=== PATIENT | male | born 1950 | race Caucasian/White ===

== ENCOUNTER 2020-01-08 01:55 | Emergency (ER) | payer MEDICARE, SELFPAY ==
[2020-01-08 01:00] VITALS: BP 145/125; PULSE 83; RESP 16; TEMP 36.6; O2SAT 97; BMI 26.8
--- NOTE | 2020-01-08 01:14 | ECG_ITS ---
Test Reason : PALPITATIONS Blood Pressure : / mmHG Vent. Rate : 082 BPM Atrial Rate : 082 BPM P-R Int : 166 ms QRS Dur : 094 ms QT Int : 376 ms P-R-T Axes : 035 015 031 degrees QTc Int : 439 ms Sinus rhythm with Premature atrial complexes Otherwise normal ECG When compared with ECG of 20-MAR-2016 16:59, Premature atrial complexes are now Present Referred By: Mary Aguiar Electronically Signed By:SEVERIANO SAEED MD
--- NOTE | 2020-01-08 01:28 | ED_ITS ---
HPI - Arrhythmia/Palpitations General Chief Complaint: Arrhythmia/Palpitations Stated Complaint: tachy Time Seen by Provider: 01/08/20 01:13 EST Source: patient Mode of arrival: EMS Limitations: no limitations History of Present Illness HPI narrative: This is a 69-year-old male who presents with 3-4 days of intermit tent palpitations that are not associated with alcohol use, infection, and are not associated with a specific time of day or activity. In addition, patient denies any associated diaphoresis, nausea, chest pain, recent travel. Currently, patient denies any symptoms. Related Data Allergies Allergy/AdvReac Type Severity Reaction Status Date / Time No Known Allergies Allergy Unverified 11/24/19 15:00 [No Known Allergies*] acetaminophen [Percocet] AdvReac Unknown nausea and Verified 08/19/19 00:00 vomiting oxycodone [Percocet] AdvReac Unknown nausea and Verified 08/19/19 00:00 vomiting bactrim Allergy Unknown nausea and Uncoded 08/19/19 00:00 vomiting Review of Systems Review of Systems: Pertinent positives and negatives as stated in HPI 10 point review systems is otherwise negative. PMFSH Past Medical History Source: nursing notes reviewed Medical History (Reviewed 01/08/20 @ 01:30 EST by Mary Aguiar MD) HTN (hypertension) Hyperlipemia Social History Social History (Reviewed 01/08/20 @ 01:30 EST by Mary Aguiar MD) Smoking Status: Never smoker Use of substances other than those prescribed or required for medical reasons: No Advance Directives: No Advance Directives Information Provided: Yes Physical Exam Vital Signs: Vital Signs: Vital Signs Temp Pulse Resp BP Pulse Ox 01/08/20 01:00 ES T 97.9 F 83 16 145/125 H 97 Body Mass Index 26.8 VITAL SIGNS: Reviewed. GENERAL: Well developed, well nourished, in no acute distress. HEAD: Normocephalic/atraumatic, EYES: PERRLA, EOMI intact without pain, no nystagmus/pallor/icterus noted EARS: Ext canals without abnormality, TMs non-bulging and non-erythematous NOSE: Nares patent bilateral OROPHARYNX: no oral lesions noted, posterior pharynx clear and non-erythematous without noted tonsillar enlargement/erythema/exudates NECK: Supple, no adenopathy LUNGS: Normal breath sounds. No adventitious sounds or accessory muscle use. SpO2<97> CARDIOVASCULAR: Regular rate and rhythm without noted murmurs, no JVD or lower extremity edema. ABDOMEN: Soft, non-tender, non-distended with bowel sounds. No rigidity. No guarding. No palpable masses or hernias noted MUSCULOSKELETAL: No tenderness, deformities, or effusions noted on gross inspection. EXTREMITIES: No cyanosis, clubbing or edema. SKIN: Inspection of the skin reveals no rashes, ulcerations, jaundice, pallor, or petechiae. NEUROLOGIC: Alert and oriented x 4. Strength and sensation to light touch were grossly intact x 4. Course Course Course Narrative: This is a 69-year-old male with history and clinical presentation most consistent with benign palpitations that on review of EKG appear to be associated with premature complexes. Patient will be evaluated for any infection, anemia, electrolyte abnormalities. On review of all investigations there is no evidence of infection, anemia, or electrolyte abnormalities. In addition, there were no acute changes on EKG when compared to prior from 03/20/2016. Patient was informed of all results and findings and discharged in stable condition and recommended to follow-up with his primary care provider for further discussion regarding possible Cardiology referral. MDM - Arrhythmia/Palpitations Lab Data Result diagrams: 01/08/20 01:27 EST 01/08/20 01:27 EST Labs: Lab Results 01/08/20 01/08/20 01/08/20 Range/Units 01:27 EST 01:27 EST 01:31 EST WBC 7.3 (4.8-10.8) X10*3/uL RBC 5.10 (4.60-5.80) X10*6/uL Hgb 15.5 (14.0-18.0) g/dl Hct 46.4 (42-52) % MCV 91.0 (80-98) fL MCH 30.4 (27.0-33.0) pg MCHC 33.4 (31.0-36.0) g/dl RDW 13.7 (11.0-16.0) % Plt Count 312 (160-400) X10*3/uL MPV 10.2 (9.4-12.4) fL Immature Gran % (Auto) 0.4 (0.0-0.4) % Neut % (Auto) 67.7 (45-73) % Lymph % (Auto) 21.6 (20-40) % [place] % (Auto) 8.7 (2-11) % Eos % (Auto) 1.0 (0-4) % Baso % (Auto) 0.6 (0-2) % Lymph # (Auto) 1.6 (1.2-4.9) X10*3/uL [place] # (Auto) 0.6 (0.1-1.2) X10*3/uL Eos # (Auto) 0.1 (0.0-0.4) X10*3/uL Baso # (Auto) 0.0 (0.0-0.2) X10*3/uL Abs Immat Gran (auto) 0.03 (0.00-0.03) X10*3/uL Absolute Neuts (auto) 4.9 (2.0-8.3) X10*3/uL Absolute Nucleated RBC 0.000 (0.0-0.012) X10*3/uL Nucleated RBC % (auto) 0.0 (0.0-0.2) /100WBC Sodium 140 (135-145) mmol/L Potassium 3.9 (3.3-5.1) mmol/l Chloride 103 (96-108) mmol/L Carbon Dioxide 24 (22-29) mmol/L Anion Gap 17 (12-20) BUN 25 H (9-16) mg/dL Creatinine 1.09 (0.5-1.4) mg/dL Estim Creat Clear Calc 61.4 Estimated GFR > 60 Random Glucose 106 (60-115) mg/dL Calcium 9.2 (8.4-10.2) mg/dL Total Bilirubin 0.6 (0.0-1.0) mg/dL AST 22 (5-37) U/L ALT 22 (0-40) U/L Alkaline Phosphatase 69 (39-117) U/L Troponin I High Sens 4.0 (<3.5-35.0) ng/L Total Protein 7.0 (6.5-8.0) g/dL Albumin 4.4 (3.5-5.0) g/dL ECG Data Attestation: I personally reviewed and interpreted this ECG as follows: Prior ECG tracings: available for review ( 03/20/2016 there are no acute changes) Interpretation: normal sinus rhythm, HR -82, no evidence of acute ischemia, [place]/QRS/ QTC are within normal limits. Discharge Plan Discharge Clinical Impression: Palpitations Patient Disposition: Home, Self-Care Instructions: Heart Palpitations (ED) Additional Instructions: The patient and/or family acknowledge understanding of results (as applicable), diagnosis, treatment plan, need for follow up, and symptoms that should prompt a return to the emergency room. Referrals: Mark Orozco MD [Primary Care Provider] - 2 days ( heart palpitations)
[2020-01-08 01:40] LABS: Basophils Percent Auto 0.6 % (0-2); Eosinophils Absolute Auto 0.1 X10*3/uL (0.0-0.4); Hematocrit 46.4 % (42-52); Hemoglobin 15.5 g/dl (14.0-18.0); Imm Gran Abs Auto 0.03 X10*3/uL (0.00-0.03); Imm Gran Pct Auto 0.4 % (0.0-0.4); Lymphocytes Absolute Auto 1.6 X10*3/uL (1.2-4.9); Lymphocytes Percent Auto 21.6 % (20-40); MANUAL DIFF FLAG NO; Mean Corpuscular HGB Conc 33.4 g/dl (31.0-36.0); Mean Corpuscular Hemoglobin 30.4 pg (27.0-33.0); Mean Platelet Volume 10.2 fL (9.4-12.4); Monocytes Absolute Auto 0.6 X10*3/uL (0.1-1.2); Monocytes Percent Auto 8.7 % (2-11); Neutrophils Absolute Auto 4.9 X10*3/uL (2.0-8.3); Neutrophils Percent Auto 67.7 % (45-73); Platelet Count 312 X10*3/uL (160-400); Red Cell Distribution Width 13.7 % (11.0-16.0); White Blood Count 7.3 X10*3/uL (4.8-10.8)
[2020-01-08 02:08] LABS: Alanine Aminotransferase 22 U/L (0-40); Albumin Level 4.4 g/dL (3.5-5.0); Alkaline Phosphatase 69 U/L (39-117); Anion Gap 17 (12-20); Aspartate Amino Transferase 22 U/L (5-37); Bilirubin Total 0.6 mg/dL (0.0-1.0); Blood Urea Nitrogen 25 mg/dL (9-16); Calcium 9.2 mg/dL (8.4-10.2); Carbon Dioxide 24 mmol/L (22-29); Chloride 103 mmol/L (96-108); Creatinine Clr Calc Pharmacy 61.4; Estimated Glomerular Filt Rate > 60; Glucose Random 106 mg/dL (60-115); Potassium 3.9 mmol/l (3.3-5.1); Sodium 140 mmol/L (135-145)
[2020-01-08 02:33] VITALS: BP 130/78
== END 2020-01-08 02:33 | disposition home or self-care (01) ==
PROVIDERS: Emergency Provider Student in an Organized Health Care Education/Training Program; PCP Internal Medicine
DX: R00.2 Palpitations (principal); I10 Essential (primary) hypertension; Z79.899 Other long term (current) drug therapy
CPT/HCPCS: 36415; 80053; 84484; 85025; 93005; 99283; 99285

== ENCOUNTER 2020-01-23 13:45 | Outpatient (REF) | payer MEDICARE, SELFPAY | END 2020-01-23 13:46 | disposition home or self-care (01) | LOC: HO.HMGCLDS 13:45 | PROVIDERS: PCP Internal Medicine; Visit Provider Internal Medicine | DX: Z20.828 Contact with and (suspected) exposure to other viral communicable diseases (principal) | CPT/HCPCS: C9803; U0003 ==

== ENCOUNTER → 2020-01-24 13:32 | Outpatient (REF) | payer MEDICARE, SELFPAY ==
--- NOTE | 2020-01-24 13:40 | ECG_ITS ---
Hook-up date: 2020-01-24 13:45:00 Duration: 25:02:00 Test Indications: PALPITATIONS, ESSEN. HTN Medications: 10199 QRS complexes 20 Ventricular ectopics which represent <1 % of total QRS comp. 405 Supraventricular ectopics which represent <1 % of total QRS comp. * Paced QRS complexs which represent % of total QRS comp. VENTRICULAR ECTOPY 20 Isolated 0 Bigeminal Cycles 0 Couplets 0 Runs 0 Beats in Runs * Beats LONGEST at * BPM at :: -- * Beats FASTEST at * BPM at :: -- SUPRAVENTRICULAR ECTOPY 399 Isolated 3 Couplets 0 Runs 0 Beats in Runs * Beats LONGEST at * BPM at :: -- * Beats FASTEST at * BPM at :: -- HEART RATES 42 MIN at 04:17:01 2020-01-25 68 AVG 122 MAX at 15:35:00 2020-01-24 LONGEST RR 1.6000 secs at 00:56:47 2020-01-25 S-T LEVELS Channel 1 - 128 mm at 13:45:00 2020-01-24 - 128 mm at 13:45:00 2020-01-24 Channel 2 - 128 mm at 13:45:00 2020-01-24 - 128 mm at 13:45:00 2020-01-24 Channel 3 - 128 mm at 03:30:41 -- - 128 mm at 03:30:41 Basic rhythm Normal sinus rhythm Frequent Sinus bradycardia , 31% of time HR < 60 bpm No long pauses Occasional Premature atrial complexes No sustained arrhythmias Patient did not report any symptoms in the diary Referred By: Mark Orozco Overread By: MARIAMA JIMENEZ MD
== END ==
LOC: HO.CARD 13:32
PROVIDERS: PCP Internal Medicine; Visit Provider Internal Medicine
DX: R00.2 Palpitations (principal); I10 Essential (primary) hypertension
CPT/HCPCS: 93226

== ENCOUNTER → 2020-06-13 08:49 | Outpatient (BNVA) | payer MEDICARE, SELFPAY | PROVIDERS: PCP Internal Medicine; Visit Provider Surgery | DX: K40.90 Unilateral inguinal hernia, without obstruction or gangrene, not specified as recurrent (principal) | CPT/HCPCS: 99212 ==

== ENCOUNTER 2021-02-19 09:29 | Emergency (ER) | payer MEDICARE, SELFPAY ==
--- NOTE | ~2021-02-19 | XR_ITS ---
EXAMINATION: SR ANKLE, RIGHT XR FOOT, RIGHT CLINICAL INFORMATION: Pain ankle and foot. COMPARISON: None TECHNIQUE: 2 views right ankle, 2 views right foot, and a lateral view of the combined ankle and foot are obtained for a total of 5 views. FINDINGS: There is no visible acute healing fracture or dislocation. The malleoli are intact and the ankle mortise is symmetric. There is bulky plantar calcaneal spur. There is hindfoot valgus with long axis talus projecting medial to first metatarsal on AP view and plantar flexed on the lateral view. The subtalar joint is not clearly visualized on any of the projections which may suggest subtalar coalition. There is increased plantar arch/flat foot. The midfoot and forefoot show no fracture or dislocation or destructive process. There is an elongated medial tarsal navicular, type III cornuate morphology. XR/XR ankle RT 2V IMPRESSION: 1. No fracture, dislocation, destructive process. 2. Foot deformity with heal valgus and decreased plantar arch. 3. Subtalar joint not clearly visible. Possibility of subtalar coalition raised. 4. Plantar calcaneal spur.
--- NOTE | ~2021-02-19 | XR_ITS ---
EXAMINATION: SR ANKLE, RIGHT XR FOOT, RIGHT CLINICAL INFORMATION: Pain ankle and foot. COMPARISON: None TECHNIQUE: 2 views right ankle, 2 views right foot, and a lateral view of the combined ankle and foot are obtained for a total of 5 views. FINDINGS: There is no visible acute healing fracture or dislocation. The malleoli are intact and the ankle mortise is symmetric. There is bulky plantar calcaneal spur. There is hindfoot valgus with long axis talus projecting medial to first metatarsal on AP view and plantar flexed on the lateral view. The subtalar joint is not clearly visualized on any of the projections which may suggest subtalar coalition. There is increased plantar arch/flat foot. The midfoot and forefoot show no fracture or dislocation or destructive process. There is an elongated medial tarsal navicular, type III cornuate morphology. XR/XR foot RT 2V IMPRESSION: 1. No fracture, dislocation, destructive process. 2. Foot deformity with heal valgus and decreased plantar arch. 3. Subtalar joint not clearly visible. Possibility of subtalar coalition raised. 4. Plantar calcaneal spur.
[2021-02-19 10:12] VITALS: BP 130/89; PULSE 96; RESP 18; TEMP 36.8; O2SAT 98; BMI 23.6
--- NOTE | 2021-02-19 10:31 | ED_ITS ---
HPI - Extremity Injury (Lower) General Chief Complaint: Extremity Injury, Lower Stated Complaint: R ankle pain Time Seen by Provider: 02/19/21 11:41 Source: patient Mode of arrival: ambulatory Limitations: no limitations History of Present Illness HPI Narrative: Patient presents to ED for right foot pain for the past 4 days. Patient states he was doing work on his shower and when he got off the folding chair he put his foot on the ground and his foot slipped and hit a wooden post and since then has had pain. Patient denies falling to the ground or hitting head. Patient denies any popping or cracking sound in foot. Patient denies any bluish black discoloration, erythema, hotness, or coldness. Patient denies any fever, chills, calf pain, leg swelling, or any wounds and foot. Related Data Previous Rx's Medication Instructions Recorded naproxen 500 mg tablet 500 mg PO BID PRN 10 Days #20 tab 02/19/21 prednisone 20 mg tablet 60 mg PO DAILY 5 Days #15 tab 02/19/21 Allergies Allergy/AdvReac Type Severity Reaction Status Date / Time No Known Allergies Allergy Unverified 06/13/20 09:00 [No Known Allergies*] Review of Systems Review of Systems: Yes all other systems are reviewed and are negative Constitutional: Constitutional: Reports as per HPI and Reports no additional constitutional complaints Eyes: Eyes: Reports as per HPI and Reports no additional eye complaints ENT: Reports system reviewed and no additional complaints, except as documented and Reports as per HPI Cardiovascular: Cardiovascular: Reports as per HPI and Reports no additional cardiovascular complaints Respiratory: Respiratory: Reports as per HPI and Reports no additional respiratory complaints Gastrointestinal: Gastrointestinal: Reports as per HPI and Reports no additional gastrointestinal complaints Genitourinary: Genitourinary: Reports no additional male genitourinary complaints and Reports as per HPI Musculoskeletal: Musculoskeletal: Reports no additional musculoskeletal complaints, Reports as per HPI and Reports arthralgias (Right foot) Neurologic: Reports system reviewed and no additional complaints, except as documented and Reports as per HPI Psychiatric: Psychiatric: Reports no additional psychiatric complaints and Reports as per HPI [facility] Past Medical History Medical History (Updated 02/19/21 @ 11:30 by NASIMA Mcguire) HTN (hypertension) Hyperlipemia Surgical History (Updated 06/13/20 @ 09:27 by Caroline Ruben, RMA) History of arthroplasty of left knee History of arthroplasty of right knee (06/29/16) History of left inguinal hernia repair (09/01/19) 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) History of total right knee replacement (TKR) History of umbilical hernia repair (09/01/19) Family History Family History (Updated 06/13/20 @ 09:28 by JENAE Balderas) Maternal Grandmother Rectal cancer Social History Social History Alcohol intake: never Advance Directives: Yes Advance Directives Information Provided: No Advance Directives on File: No Physical Exam Vital Signs: Vital Signs: Last Vital Signs Temp 98.2 F 02/19/21 10:12 Pulse 96 02/19/21 10:12 Resp 18 02/19/21 10:12 BP 130/89 02/19/21 10:12 Pulse Ox 98 02/19/21 10:12 BMI result Body Mass Index 23.6 Const: General: cooperative, healthy appearing, comfortable, no acute distress, well developed, alert, awake and Physically active Orie ntation/consciousness: patient oriented x3 HENMT: Head: Yes normal to inspection, Yes No palpable skull fracture present, Yes normocephalic, Yes atraumatic and No abrasion Eyes: General: appearance normal, both eyes and all related structures Neck: Neck: Yes normal visual inspection, Yes full ROM, Yes no lymphadenopathy, Yes no meningeal signs, Yes trachea midline, Yes supple, No anterior neck swelling and No tender Chest: Chest palpation & inspection: normal inspection of the chest and normal palpation of entire chest wall Resp: Effort & Inspection: normal respiratory effort and able to speak in complete sentences Auscultation: clear to auscultation bilaterally Cardio: Jugular venous distension: no JVD Heart sounds: S1 normal heart sound present and S2 normal heart sound present GI: Inspection: Yes normal to inspection and No abdominal wall ecchymosis Palpation (GI): Soft to palpation, not firm, nontender, no guarding and not rigid : General: No CVA tenderness and Yes no CVA tenderness Back/Spine/Pelvis: Back: no CVA tenderness, No CVA tenderness and No back tenderness Skin: General skin exam: no rashes or lesions noted and elasticity normal Neuro: General: patient oriented x3, gait normal, no meningeal signs and CN's II-XI intact bilaterally Cranial nerves: Yes CN's II-XII intact bilaterally Extrem: General: Yes normal to inspection and Yes full ROM Ankle/foot/toe images: 1. Positive for tenderness on palpation. Negative for any ecchymosis, crepitus, or deformity. Negative for erythema, pus discharge, foul odor, or open wounds on foot. Motor/neuro/vascular exam. Achilles tendon intact. Psych: Appearance: grossly normal, well kempt and not disheveled Course Course Course Narrative: Patient sent for x-ray waiting for results. Patient presently does not want any pain meds Reevaluation(s) Reevaluation #1: Images negative for any fracture. Diagnosis foot sprain. Patient will be discharged with NSAIDs for Time: 11:29 MDM - Extremity Injury (Lower) MDM Narrative Medical decision making narrative: Foot sprain Discharge Plan Discharge Clinical Impression: Foot sprain Patient Disposition: Home, Self-Care Instructions: Foot Sprain (ED), Cold Compress or Soak (ED) Additional Instructions: The x-ray came back negative for any fracture or dislocation. You will be discharged with pain medication. Recommend rest and elevation and ice. Return to ED for any swelling, redness, bluish black discoloration, red streaks, foul odor, pus discharge, open wounds, calf pain, leg swelling, chest pain, shortness of breath, fever, chills, clonus of lower extremity, hotness, or any other concerning symptoms. Please follow-up with primary care provider Prescriptions: New naproxen 500 mg tablet 500 mg PO BID PRN (Reason: pain) 10 Days Qty: 20 RF: 0 prednisone 20 mg tablet 60 mg PO DAILY 5 Days Qty: 15 RF: 0 Stand Alone Forms: Work/School Release Interventions: ED Discharge Assessment Last Done: 02/19/21 11:49 Discharge Date/Time: 02/19/21 11:50 Print Language: Estonian
== END 2021-02-19 11:50 | disposition home or self-care (01) ==
PROVIDERS: Emergency Provider Emergency Medicine; PCP Internal Medicine
DX: S93.601A Unspecified sprain of right foot, initial encounter (principal); W22.09XA Striking against other stationary object, initial encounter; Y93.89 Activity, other specified; Y92.012 Bathroom of single-family (private) house as the place of occurrence of the external cause; Y99.9 Unspecified external cause status
CPT/HCPCS: 73600; 73620; 99283

== ENCOUNTER 2022-01-27 12:45 | Day surgery (SDC) | payer MEDICARE, SELFPAY ==
[2022-01-27 13:07] VITALS: BMI 22.6
[2022-01-27 13:11] VITALS: BP 164/107; PULSE 78; RESP 18; TEMP 36.4; O2SAT 99; BMI 22.6
--- NOTE | 2022-01-27 13:14 | HO.ANESPROP2 ---
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) History of total right knee replacement (TKR) History of umbilical hernia repair (09/01/19) History of Problems with Anesthesia: No Social History Social History Alcohol intake: never Patient Tobacco Use Status: Never used Tobacco Use of substances other than those prescribed or required for medical reasons: No Are you DNR?: No Advance Directives: No Advance Directives Information Provided: Yes Meds Allergies Allergy/AdvReac Type Severity Reaction Status Date / Time acetaminophen [From Percocet] AdvReac Stomach Verified 01/27/22 13:03 Upset oxycodone [From Percocet] AdvReac Stomach Verified 01/27/22 13:03 Upset Home Medications Medication Instructions Recorded Confirmed Last Taken Type atorvastatin 20 mg tablet 1 tab PO DAILY 01/24/22 01/24/22 Unknown History hydrochlorothiazide 12.5 mg tablet 1 tab PO DAILY 01/24/22 01/24/22 Unknown History lisinopril 30 mg tablet 1 tab PO DAILY 01/24/22 01/24/22 Unknown History omeprazole 20 mg capsule,delayed 1 cap PO BID 01/24/22 01/24/22 Unknown History release Exam Exam Date and Time: January 27, 2022 1314 Height,Weight and Vital Signs: Height 5 ft 9 in Weight 69.4 kg Last Vital Signs Temp 97.5 F 01/27/22 13:11 Pulse 78 01/27/22 13:11 Resp 18 01/27/22 13:11 BP 164/107 H 01/27/22 13:11 Pulse Ox 99 01/27/22 13:11 O2 Del Method 01/27/22 13:11 Airway Mallampati Class: II TM Dist: >3cm Neck ROM: Full Assessment and Plan Assessment Anesthesia Assessment: Anesthesia Plan Discussed and Chart Reviewed Final Anesthetic Review Family History of Problems with Anesthesia: No History of Problems with Anesthesia: No NPO: Yes ASA Class: II Final Preanesthetic Review: No Changes in Pt Med Stat, Meds/Allgs Chart Reviewed, Consent Obtained/Reviewed and Anes Risks/Benef Reviewed Patient Risk: Low Procedure Risk: Low Anesthetic Plan Anesthetic Plan: MAC: Disposition: Standard PACU
[2022-01-27] MEDS: Lactated Ringers 1,000 ML 50 ML IVCONT (13:36)
[2022-01-27 14:07] VITALS: BP 112/68; PULSE 83; RESP 16; TEMP 36.7; O2SAT 95
--- NOTE | 2022-01-27 14:14 | PM.OP ---
Brief Operative Note Date of Service: 01/27/22 Pre-op diagnosis: GERD, abdominal pain Post-op diagnosis: other (Hiatal hernia) Procedure: EGD with biopsies Surgeon: Tesfaye Helton Anesthesia: MAC Was an Nutrition Services Assistant used for this Procedure?: No Estimated blood loss (mL): 2.0 Pathology: other (A. Gastric antrum) Condition: stable Disposition: PACU
[2022-01-27 14:22] VITALS: BP 132/77; PULSE 89; RESP 16; O2SAT 99
[2022-01-27 14:37] VITALS: BP 137/87; PULSE 72; RESP 16; TEMP 36.4; O2SAT 100
--- NOTE | 2022-01-27 23:46 | OP_ITS ---
SURGEON: Tesfaye Helton MD INDICATIONS: The patient presents for evaluation of gastroesophageal reflux and abdominal discomfort. Full consent has been obtained from him for this, including risks of bleeding and perforation. PREOPERATIVE DIAGNOSIS: Gastroesophageal reflux and abdominal discomfort. POSTOPERATIVE DIAGNOSIS: PROCEDURE PERFORMED: Esophagogastroduodenoscopy with biopsy. ESTIMATED BLOOD LOSS: COMPLICATIONS: ANESTHESIA: ASSISTANTS: SPECIMENS: POSTOPERATIVE DIAGNOSES: Gastroesophageal reflux and abdominal discomfort, small hiatal hernia. DESCRIPTION OF PROCEDURE: The patient was placed in the left lateral decubitus position. The Olympus video gastroscope was passed in the posterior oropharynx and upper esophagus under direct vision. The scope was passed slowly to the distal esophagus. The gastroesophageal junction appeared at 39 cm. There was no sign of any esophagitis nor Gannon's esophagus. There was a minimal hiatal hernia. The scope entered into the stomach. The scope was advanced to the pylorus and the duodenum was cannulated to the descending portion. The duodenum including the bulb appeared normal without mass or ulceration. The scope was withdrawn back to the stomach. The gastric antrum and body appeared normal with good peristalsis. The scope was retroflexed visualizing the proximal stomach carefully, which appeared normal, without any sign of mass or ulceration. The scope was straightened. Biopsies were obtained from the gastric antrum. The scope was withdrawn back in the esophagus. The esophageal mucosa appeared completely normal. The scope was withdrawn from the patient. He tolerated the procedure well and was returned to the recovery area in stable condition. IMPRESSION: Minimal hiatal hernia, otherwise normal upper endoscopy. PLAN: The results of the biopsies will be checked. He was advised to continue his omeprazole once or twice a day as needed for symptomatic reflux. He is scheduled for an abdominal ultrasound later this month as well to rule out gallstones as a contributing factor to his abdominal discomfort. He will be seen in followup in the office as needed. MD CORETTA Verduzco/AQUILES / [phone] MTDD
== END 2022-01-27 15:18 | disposition home or self-care (01) ==
PROVIDERS: PCP Internal Medicine; Visit Provider Internal Medicine
PROC: 0DJ08ZZ Inspection of Upper Intestinal Tract, Via Natural or Artificial Opening Endoscopic (ICD-10-PCS; CPT 43235; principal; 2022-01-27 14:20)
DX: K21.9 Gastro-esophageal reflux disease without esophagitis (principal); R10.13 Epigastric pain; K44.9 Diaphragmatic hernia without obstruction or gangrene; I10 Essential (primary) hypertension; E78.5 Hyperlipidemia, unspecified; Z79.899 Other long term (current) drug therapy; Z88.0 Allergy status to penicillin; Z87.442 Personal history of urinary calculi; Z96.653 Presence of artificial knee joint, bilateral
CPT/HCPCS: 43239; 88305; 88342

== ENCOUNTER 2022-02-25 09:18 | Outpatient (REF) | payer MEDICARE, SELFPAY ==
--- NOTE | ~2022-02-25 | US_ITS ---
EXAMINATION: US ABDOMEN COMPLETE CLINICAL INFORMATION: Epigastric pain. COMPARISON: X-ray abdomen KUB and renal ultrasound 08/23/2013. Ultrasound retroperitoneal complete (renal) 08/06/2012. X-ray abdomen KUB 08/06/2012. TECHNIQUE: Real-time imaging of the abdominal viscera. Technically limited study secondary to bowel gas. FINDINGS: PANCREAS: The head appears unremarkable with the body and tail being obscured by overlying bowel gas. ABDOMINAL AORTA: The proximal, mid, and distal segments are normal in caliber. INFERIOR VENA CAVA: Visualized portions are normal. LIVER: The liver is normal in size. The liver contour is normal. There is increased echogenicity consistent with fatty infiltration. No focal hepatic lesion. There is no intrahepatic biliary duct dilatation seen. GALLBLADDER: There is a 5 x 7 x 4 mm nonmobile echogenic structure which may represent polyp or calculus. The gallbladder is physiologically distended without evidence of sludge, wall thickening or pericholecystic fluid. COMMON BILE DUCT: Normal in caliber measuring 0.3 cm in diameter. RIGHT KIDNEY: There is a simple-appearing cyst measuring 2.7 x 1.2 x 2.0 cm in size. There appear to be some prominent pyramids present. No hydronephrosis or renal calculi. The kidney measures 11.3 cm in maximum dimension. LEFT KIDNEY: There are prominent pyramids and echogenic structures likely related to calcified vessels/vessel interface. No
== END 2022-02-25 09:19 | disposition home or self-care (01) ==
LOC: HO.US 09:18
PROVIDERS: Visit Provider Internal Medicine
DX: R10.13 Epigastric pain (principal)
CPT/HCPCS: 76700

== ENCOUNTER 2022-09-16 13:10 | Outpatient (AMB) | payer MEDICARE, SELFPAY ==
--- NOTE | 2022-09-16 13:15 | A.OFFVIS_ITS ---
Intake Vital Signs 09/16/22 13:22 Height 5 ft 9 in Weight 141 lb 8 oz BMI 20.9 BP 139/75 Blood Pressure Location Lt brachial Position Sitting Pulse 75 Intake Visit Reasons: ? recurrent hernia Intake Note: Pt is see in office for evaluation of a recurrent left groin hernia. 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: No Accompanied by: Self / Same As Patient Allergies acetaminophen [From Percocet] Adverse Reaction (Verified 09/16/22 13:20) Stomach Upset oxycodone [From Percocet] Adverse Reaction (Verified 09/16/22 13:20) Stomach Upset Medication List - Last Reconciled 09/16/22 by Hari Arce MD atorvastatin 1 tab PO DAILY hydrochlorothiazide 1 tab PO DAILY lisinopril 1 tab PO DAILY omeprazole 1 cap PO BID vitamin [id number] acid 0.5-1 mg 1 tab PO DAILY HPI HPI Comments History of Present Illness Details 72-year-old male patient with a previous history of a laparoscopic left inguinal hernia and umbilical hernia repair 09/01/2019 returning today with complaints of occasional aching in the left groin. He denies any significant pain or swelling to indicate a recurrent hernia in the left groin. He denies nausea, vomiting, fever or chills. His bowels are normal without bleeding. 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) History of total right knee replacement (TKR) History of umbilical hernia repair (09/01/19) Family History Maternal Grandmother Rectal cancer Social History Alcohol intake: never Patient Tobacco Use Status: Never used Tobacco Review of Systems Const Denies chills, Denies fever(s), Denies headache(s) and Denies poor appetite ENT Denies dizziness and Denies headache(s) Card Denies chest pain, Denies rapid heart rate, Denies palpitations and Denies slow heart rate Resp Denies chest congestion, Denies cough, Denies pain on inspiration and Denies wheezing GI Denies abdominal pain, Denies bloating, Denies change in stool character, Denies constipation, Denies diarrhea, Denies nausea, Denies vomiting and Denies hematemesis Musc Reports back pain, Denies arthralgias, Denies joint swelling and Denies numbness Skin/Breast Denies change in pigmentation, Denies erythema and Denies rash Neuro Denies dizziness, Denies headache(s) and Denies numbness Psych Denies anxiety and Denies depression Endo Denies palpitations Kadeem/Lymph Denies easy bleeding, Denies easy bruising and Denies lymphadenopathy Aller/Immun Denies wheezing Physical Exam Const General: cooperative, comfortable and well developed Nutritional Appearance: well nourished Orientation/consciousness: patient oriented x3 Eyes Sclerae: sclerae normal EOM: EOMs intact bilaterally Neck Neck: Yes normal visual inspection Resp Effort & Inspection: normal respiratory effort, no cough, no respiratory distress and no stridor Cardio Jugular venous distension: no JVD GI Other: Examination of the left groin reveals a small area of swelling in the mid groin without a jaylen inguinal hernia appreciated. No changes were noted with Valsalv a maneuvers. No tenderness is elicited with palpation. No right inguinal hernias identified. Inspection: Yes normal to inspection Palpation (GI): Soft to palpation, nontender, no guarding and not rigid Skin General skin exam: dry skin Rashes: no rashes Neuro General: patient oriented x3 and no focal motor deficits Extrem General: Yes full ROM and Yes no clubbing, cyanosis or edema Psych Appearance: grossly normal Assessment & Plan Assessment & Plan (1) Left inguinal hernia: Code(s): K40.90 - Unilateral inguinal hernia, without obstruction or gangrene, not specified as recurrent Plan Patient returns for a hernia check after repair of a left inguinal hernia on 09/01/2019. Examination today reveals mild weakness in the left groin however no jaylen hernia could be identified. He feels well and denies any ongoing symptoms other than occasional aching. Should the symptoms worsen a CT of the pelvis will be requested. He should follow up as needed. Coding Level of Care Code Est Pt Level 3 (31411) Diagnoses Left inguinal hernia K40.90
[2022-09-16 13:22] VITALS: BP 139/75; PULSE 75; BMI 20.9
== END 2022-09-16 13:27 | disposition home or self-care (01) ==
PROVIDERS: PCP Internal Medicine; Referring Provider Internal Medicine; Visit Provider Surgery
DX: K40.90 Unilateral inguinal hernia, without obstruction or gangrene, not specified as recurrent (principal)
CPT/HCPCS: 99213

== ENCOUNTER → 2022-09-16 13:10 | Outpatient (BNVA) | payer MEDICARE, SELFPAY | PROVIDERS: PCP Internal Medicine; Referring Provider Internal Medicine; Visit Provider Surgery | DX: K40.90 Unilateral inguinal hernia, without obstruction or gangrene, not specified as recurrent (principal) | CPT/HCPCS: 99212 ==

== ENCOUNTER 2023-08-18 08:58 | Outpatient (REF) | payer MEDICARE, SELFPAY ==
[2023-08-18 11:39] LABS: Anion Gap 12 (12-20); Blood Urea Nitrogen 24 mg/dL (9-16); Calcium 10.3 mg/dL (8.4-10.2); Carbon Dioxide 30 mmol/L (22-29); Chloride 104 mmol/L (96-108); Estimated Glomerular Filt Rate > 60; Glucose Random 97 mg/dL (60-115); Potassium 4.5 mmol/L (3.3-5.1); Sodium 141 mmol/L (135-145)
== END 2023-08-18 08:59 | disposition home or self-care (01) ==
LOC: HO.HMGCLDS 08:58
PROVIDERS: PCP Internal Medicine; Visit Provider Internal Medicine
DX: I10 Essential (primary) hypertension (principal)
CPT/HCPCS: 36415; 80048

== ENCOUNTER 2023-08-25 08:46 | Outpatient (REF) | payer MEDICARE, SELFPAY ==
--- NOTE | ~2023-08-25 | CT_ITS ---
EXAMINATION: CT ABDOMEN AND PELVIS WITH CONTRAST CLINICAL INFORMATION: Abnormal weight loss. COMPARISON: Abdominal ultrasound 02/25/2022. TECHNIQUE: Multidetector volumetric images were obtained from the superior aspect of the liver through the pubic symphysis following administration 85 mL of Omnipaque 350 intravenous contrast. Sagittal and coronal reformatted images were obtained on the technologist's workstation. Oral contrast: Yes This CT examination was performed using dose optimization techniques as appropriate, variously including the following: *Automated exposure control *Adjustment of mA and/or kV according to patient size (this includes techniques or standardized protocols for targeted exams where dose is matched to indication/reason for exam; i.e. extremities or head) *Use of iterative reconstruction technique DLP: 451 mGy-cm FINDINGS: LUNG BASES: The visualized lung bases are unremarkable. Three-vessel coronary artery calcium. LIVER, GALLBLADDER, AND BILIARY TREE: The liver is normal in size, shape, and attenuation. No focal hepatic lesion or biliary ductal dilatation is present. The gallbladder is unremarkable with no evidence of radiopaque gallstones, gallbladder wall thickening, or obvious pericholecystic inflammatory changes. PANCREAS: No discrete mass. No ductal dilatation. SPLEEN: Unremarkable. ADRENAL GLANDS: No adrenal mass. KIDNEYS AND URETERS: Symmetric nephrograms. Several simple cysts are seen bilaterally for which no imaging follow-up is recommended. There is an 1.8 cm 45 HU lesion in the posterior mid to lower right kidney. On prior ultrasound this images as a simple cyst. Therefore, this is most likely a pronation cyst with high attenuation on CT. No follow-up imaging is recommended. No nephrolithiasis or hydronephrosis. BLADDER: No visible calculus or discrete bladder mass. GASTROINTESTINAL TRACT: The small bowel is normal in caliber. The large bowel is normal in caliber. No focal GI mass is seen. Mild to moderate diverticulosis, most prominent in the sigmoid colon. No evidence of diverticulitis. ABDOMINAL WALL: Bilateral fat-containing inguinal hernias. LYMPH NODES: No pathologically enlarged lymph nodes. VASCULAR: No aortic aneurysm. Mild atherosclerosis. No significant stenosis in the celiac, mesenteric, or renal arteries. Duplicated right renal artery. PELVIC VISCERA: Unremarkable. OSSEOUS STRUCTURES: Degenerative changes in the spine and hips. No suspicious osseous lesions. CT/CT abdomen pelvis w IV con IMPRESSION: No acute findings. Colonic diverticulosis without evidence of acute diverticulitis. Fleischner guidelines were followed.
[2023-08-25] MEDS: iohexoL 350 MG/ML 100 ML INFUS..BTL IV (11:14)
[2023-08-25] MEDS: Barium Sulfate Oral (Mocha) 450 ML ORAL.SUSP 900 ML PO (11:15)
== END 2023-08-25 08:47 | disposition home or self-care (01) ==
LOC: HO.CT 08:46
PROVIDERS: PCP Internal Medicine; Visit Provider Internal Medicine
DX: R63.4 Abnormal weight loss (principal)
CPT/HCPCS: 74177; Q9967

== ENCOUNTER 2024-02-09 08:18 | Outpatient (REF) | payer MEDICARE, SELFPAY ==
[2024-02-09 11:16] LABS: MANUAL DIFF FLAG NO
[2024-02-09 11:20] LABS: Basophils Absolute Auto 0.1 X10*3/uL (0.0-0.2); Eosinophils Absolute Auto 0.1 X10*3/uL (0.0-0.4); Eosinophils Percent Auto 1.5 % (0-4); Hematocrit 40.3 % (42.0-52.0); Hemoglobin 13.1 g/dl (14.0-18.0); Imm Gran Abs Auto 0.03 X10*3/uL (0.00-0.03); Imm Gran Pct Auto 0.4 % (0.0-0.4); Lymphocytes Absolute Auto 1.7 X10*3/uL (1.2-4.9); Mean Corpuscular HGB Conc 32.5 g/dl (31.0-36.0); Mean Corpuscular Hemoglobin 30.1 pg (27.0-33.0); Mean Corpuscular Volume 92.6 fL (80.0-98.0); Mean Platelet Volume 10.3 fL (9.4-12.4); Monocytes Absolute Auto 0.6 X10*3/uL (0.1-1.2); Monocytes Percent Auto 7.9 % (2-11); Neutrophils Absolute Auto 4.7 x10*3/uL (2.0-8.3); Neutrophils Percent Auto 65.2 % (45-73); Platelet Count 384 X10*3/uL (160-400); Red Blood Count 4.35 X10*6/uL (4.60-5.80); White Blood Count 7.2 X10*3/uL (4.8-10.8)
[2024-02-09 11:26] LABS: Estimated Average Glucose 105 mg/dL; Hemoglobin A1C 114.9074 umol/L; Hemoglobin A1c % 5.3 % (<6.0); Total Hemoglobin (HGBA1C) 3328.5829 umol/L
[2024-02-09 11:55] LABS: Alanine Aminotransferase 15 U/L (0-40); Albumin Level 4.2 g/dL (3.5-5.0); Anion Gap 13 (12-20); Aspartate Amino Transferase 27 U/L (5-37); Bilirubin Total 0.5 mg/dL (0.0-1.0); Blood Urea Nitrogen 23 mg/dL (9-16); Calcium 9.9 mg/dL (8.4-10.2); Carbon Dioxide 28 mmol/L (22-29); Chloride 105 mmol/L (96-108); Estimated Glomerular Filt Rate 58; Glucose Random 109 mg/dL (60-115); Sodium 142 mmol/L (135-145); TSH reflex Free T4 1.23 uIU/mL (0.32-4.0); Total Protein 7.1 g/dL (6.5-8.0)
[2024-02-09 12:32] LABS: Alkaline Phosphatase 82 U/L (39-117)
== END 2024-02-09 08:19 | disposition home or self-care (01) ==
LOC: HO.HMGCLDS 08:18
PROVIDERS: PCP Internal Medicine; Visit Provider Internal Medicine
DX: F03.B0 Unspecified dementia, moderate, without behavioral disturbance, psychotic disturbance, mood disturbance, and anxiety (principal); I10 Essential (primary) hypertension; Z13.1 Encounter for screening for diabetes mellitus
CPT/HCPCS: 36415; 80053; 83036; 84443; 85025

== ENCOUNTER 2024-12-06 15:19 | Inpatient (IN) | payer MEDICARE, SELFPAY ==
[2024-12-06] VITALS (7 sets, daily range): BP systolic 123–145; BP diastolic 66–87; PULSE 66–99; RESP 14–18; TEMP 36.9–37.5; O2SAT 96–99; BMI 19.8
--- NOTE | ~2024-12-06 | XR_ITS ---
EXAMINATION: XR PELVIS CLINICAL INFORMATION: fall, trauma COMPARISON: CT from August 25, 2023 TECHNIQUE: AP view of the pelvis. FINDINGS: Contrast within the bladder partially obscures the superior pubic rami. No definite fracture is identified. There is mild axial joint space narrowing in both hip joints with small marginal osteophytes and chondrocalcinosis. There is chronic calcinosis in the pubic symphysis joint is well. 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 Partially obscured superior pubic rami. No fracture is demonstrated. Electronically signed by: Tony Huertas MD 12/06/2024 04:55 PM EDT
--- NOTE | ~2024-12-06 | CT_ITS ---
EXAMINATION: CT HEAD WITHOUT CONTRAST (STROKE PROTOCOL) CLINICAL INFORMATION: Stroke protocol. COMPARISON: None available. TECHNIQUE: Contiguous axial imaging was performed from the skull base to vertex without intravenous administration of contrast. This CT examination was performed using dose optimization techniques as appropriate, variously including the following: *Automated exposure control *Adjustment of mA and/or kV according to patient size (this includes techniques or standardized protocols for targeted exams where dose is matched to indication/reason for exam; i.e. extremities or head) *Use of iterative reconstruction technique DLP: 636 mg centimeter FINDINGS: No acute intracranial hemorrhage, mass effect, midline shift, hydrocephalus or herniation. Strickland-white matter differentiation is normal. Posterior cranial fossa contents demonstrated no acute hemorrhage or mass effect. Normal position of the cerebellar tonsils. Sellar suprasellar region demonstrated no Prominence of the extra-axial CSF spaces cerebral sulci likely central volume loss and age-related. Calcified plaques in the cavernous supracavernous segments both ICAs and V4 segment left vertebral artery. Gross masses. No acute fracture in the bony calvarium. No air-fluid levels in the paranasal sinuses. Tympanic cavities and mastoid air cells are aerated. Pneumatized left pterygoid recess. CT/CT head for STROKE IMPRESSION: No acute intracranial hemorrhage or acute brain abnormality by CT. This critical result was discussed with the emergency physician mri assistant Brittany Santamaria via [employer] connect at 4:00 PM hours on December 06, 2024. It was ascertained that the content and urgency of the report was understood at the time of direct communication. Electronically signed by: Pete Rucker MD 12/06/2024 04:02 PM EDT
--- NOTE | ~2024-12-06 | CT_ITS ---
EXAMINATION: CTA NECK WITH CONTRAST (STROKE) CTA BRAIN WITH CONTRAST (STROKE) CLINICAL INFORMATION: Suspect acute stroke. COMPARISON: None available. TECHNIQUE: CTA of the head and neck was performed in the axial plane from the mediastinum to the skull vertex using 70 mL Omnipaque 350 intravenous contrast. Additional reformatted multiplanar images including maximum intensity projection MIP images are generated on the CT workstation. This CT examination was performed using dose optimization techniques as appropriate, variously including the following: *Automated exposure control *Adjustment of mA and/or kV according to patient size (this includes techniques or standardized protocols for targeted exams where dose is matched to indication/reason for exam; i.e. extremities or head) *Use of iterative reconstruction technique EXAMINATION: CT ANGIOGRAM HEAD AND NECK CLINICAL INFORMATION: Dizziness, rule out stroke. COMPARISON: None available. TECHNIQUE: Test bolus sequences and head and neck intravenous bolus administration 70mL of Omnipaque 350. Helical imaging was performed in the axial plane from the aortic arch to the skull vertex. The data was processed at the instrument technologist's workstation for generation of MIP sequences. Angled MIPs and volume rendered reformatted images were also generated at an offline 3D workstation. Stenoses are assessed in accordance with NASCET criteria unless otherwise indicated. This CT examination was performed using dose optimization techniques as appropriate, variously including the following: *Automated exposure control *Adjustment of mA and/or kV according to patient size (this includes techniques or standardized protocols for targeted exams where dose is matched to indication/reason for exam; i.e. extremities or head) *Use of iterative reconstruction technique FINDINGS: NECK CTA: -AORTIC ARCH: Normal in caliber. Mild atheromatous calcification. Three-vessel branching pattern. -GREAT VESSEL ORIGINS: Widely patent. No stenosis. -RIGHT COMMON CAROTID ARTERY: Normal in course and caliber to the level of the bifurcation. -CERVICAL RIGHT INTERNAL CAROTID ARTERY: Mild arthritic calcification is present in the carotid bulb. Normal opacification without focal stenosis or occlusion. -LEFT COMMON CAROTID ARTERY: Normal in course and caliber to the level of the bifurcation. -CERVICAL LEFT INTERNAL CAROTID ARTERY: Mild calcific atherosclerotic disease of the carotid bulb and proximal internal carotid artery without stenosis. -CERVICAL RIGHT VERTEBRAL ARTERY: There is atherosclerotic calcification of the origin. Normal in course and caliber into the skull base. -CERVICAL LEFT VERTEBRAL ARTERY: Left dominant. There is focal calcified plaque at the origin. Normal in course and caliber into the skull base. OTHER, SOFT TISSUES: -No lymphadenopathy or mass. No abnormal fluid collection or soft tissue swelling. -Normal thyroid. -Imaged superior mediastinal structures normal. -Imaged lung apices clear. The right shoulder is anteriorly subluxed. CTA OF THE BRAIN: -INTRACRANIAL INTERNAL CAROTID ARTERIES: No focal stenosis or occlusion. -RIGHT ANTERIOR CEREBRAL ARTERY: Normal A1 segment.. Normal arborization of the distal segments. -LEFT ANTERIOR CEREBRAL ARTERY: Normal A1 segment.. Normal arborization of the distal segments. -ANTERIOR COMMUNICATING ARTERY: Diminutive. -RIGHT MIDDLE CEREBRAL ARTERY: Normal M1 segment of the MCA without focal stenosis or occlusion. Normal bifurcation. Normal arborization of the distal segments. -LEFT MIDDLE CEREBRAL ARTERY: Normal M1 segment of the MCA without focal stenosis or occlusion. Normal bifurcation. Normal arborization of the distal segments. -RIGHT VERTEBRAL ARTERY V4: Normal in course and caliber. Normal PICA branch. -LEFT VERTEBRAL ARTERY V4: Normal in course and caliber. Normal PICA branch. -BASILAR ARTERY: Normal without focal stenosis or occlusion. Normal appearance of the proximal superior cerebellar arteries. Normal basilar tip. -RIGHT POSTERIOR CEREBRAL ARTERY: Normal P1 segment. Normal opacification of the distal BLOCK BREAKER segments. -LEFT POSTERIOR CEREBRAL ARTERY: The P1 segment is diminutive. origin of the BLOCK BREAKER with robust opacification of the posterior communicating artery. Normal opacification of the distal BLOCK BREAKER segments. -POSTERIOR COMMUNICATING ARTERIES: Present Normal opacification of the superior sagittal, straight, right transverse, and sigmoid sinuses. Left transverse sinus is poorly opacified. CT/CT angio head neck STROKE IMPRESSION: Right shoulder is anteriorly subluxed. CTA NECK: No hemodynamically significant stenosis. CTA HEAD: No hemodynamically significant stenosis. Left transverse sinus is not opacified which is probably related to bolus timing. Presence of venous sinus thrombosis is not ruled in or out. Brittany Santamaria, PAC notified (Read) via [place] at 4:39 pm ET Electronically signed by: Tony Huertas MD 12/06/2024 04:38 PM EDT
--- NOTE | ~2024-12-06 | XR_ITS ---
EXAMINATION: XR CHEST CLINICAL INFORMATION: fall/trauma COMPARISON: None available. TECHNIQUE: Frontal view of the chest was obtained. FINDINGS: No significant abnormality is noted involving the heart, lungs, mediastinum, bony thorax or soft tissues. XR/XR chest 1V IMPRESSION: No acute disease. Electronically signed by: Tony Huertas MD 12/06/2024 04:59 PM EDT RP
--- NOTE | 2024-12-06 15:33 | ED.FALL ---
HPI - Fall General Chief Complaint: Fall Stated Complaint: Fall Time Seen by Provider: 12/06/24 15:50 History of Present Illness ED Provider: Jesús Lopez MD HPI Narrative: 74-year-old male brought in by family. Initial suspicion by rapid triage assessment and brief family conversation that the patient may have encephalopathic picture with last known well less than 24 hours. See below this is later contradicted by additional history. Patient arrived after having been found down on the ground in the floor of his apartment where he lives alone by family who had EMS / police performed wellness check and break into the home. The patient was last heard of by granddaughter went to the house proximally 16:00 yesterday nearly 24 hours prior to arrival where he was behaving speaking and appearing normal per her description. Family came to the house to get him as he had missed an appointment today and he that he did not answer the door. They found him to be confused they helped him up off the floor where he had. To fall in the right side of his body and they felt that he was slightly confused but no described dysarthria or aphasia or focal deficits. Patient himself poor historian and does not describe any focality or vision deficits. Denies head strike unclear how long he was on the ground. Related Data Home Medications ?Medication ?Instructions ?Recorded ?Confirmed atorvastatin 20 mg tablet 1 tab PO DAILY 01/24/22 12/06/24 hydrochlorothiazide 12.5 mg tablet 1 tab PO DAILY 01/24/22 12/06/24 lisinopril 30 mg tablet 1 tab PO DAILY 01/24/22 12/06/24 omeprazole 20 mg capsule,delayed 1 cap PO BID 01/24/22 12/06/24 release vitamin B12 0.5 mg-folic acid 1 mg 1 tab PO DAILY 09/16/22 12/06/24 tablet donepezil 10 mg tablet 10 mg PO BEDTIME 12/06/24 12/06/24 memantine 5 mg tablet 5 mg PO DAILY 12/06/24 12/06/24 Allergies Allergy/AdvReac Type Severity Reaction Status Date / Time acetaminophen (From Percocet) AdvReac Stomach Verified 12/06/24 15:41 Upset oxycodone (From Percocet) AdvReac Stomach Verified 12/06/24 15:41 Upset PMFSH Past Medical History Medical History Weakness Weight loss Essential tremor Dementia Hyperlipemia HTN (hypertension) Surgical History History of left inguinal hernia repair (09/01/19) History of umbilical hernia repair (09/01/19) History of arthroplasty of right knee (06/29/16) 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) History of arthroplasty of left knee History of total right knee replacement (TKR) Family History Family History Maternal Grandmother Rectal cancer Social History Social History Household Members: None Housing: House Do you presently have visiting nurse or other home services: Yes (meals on wheels) Alcohol intake: never Patient Tobacco Use Status: Never used Tobacco Physical Exam Exam: Exam: GENERAL: Well appearing. No apparent distress. Alert. HEAD/NECK: Normal to inspection. Neck supple. No cervical lymphadenopathy. EYES: Normal to inspection. Sclera non-icteric. ENMT: External nose normal. RESPIRATORY: Respiratory effort normal. Lungs clear to auscultation bilaterally. CARDIOVASCULAR: Regular rate. Normal rhythm. No murmur. No rubs. GI: Soft, non-tender, non-distended. No rebound or guarding. No masses palpable. No hepatosplenomegaly. SKIN: No jaundice. NEUROLOGICAL: Alert. PSYCHIATRIC: Alert. Appearance appropriate for situation. Attitude cooperative. OTHER: MSK/no joint deformities there is perhaps mild abrasion or erythema of the right buttock no instability with pelvic rock. No midline back tenderness. Lower extremities and upper extremities atraumatic except for erythema and perhaps pressure ulcer, early of the right elbow Comprehensive Neuro exam: Face symmetric, tongue midline, strong symmetric eye closure, pupils symmetric and reactive to light, intact sensation to the face throughout, intact strong face deviation and shoulder shrug. Sensation intact to light touch throughout 5 out of 5 strength in bilateral upper extremities, 5 and 5 strength in lower extremities Vital Signs: Vital Signs: Last Vital Signs Temp 99.5 F 12/07/24 10:09 Pulse 61 12/07/24 10:09 Resp 14 12/07/24 10:09 BP 144/76 H 12/07/24 10:09 Pulse Ox 98 12/07/24 10:09 O2 Del Method Room Air 12/07/24 10:09 BMI result Body Mass Index 19.8 Course Course Course Narrative: This is an RME: Additional HPI, ROS, PE not included below will be deferred to primary provider. RME assessment and note performed by: Brittany Santamaria PA-C This is a [id number]-male, with a hx HTN, HLD, dementia, who presents to the ER with a complaint of AMS. Patient is here with family members. They state that patient's niece was over mowing the lawn and did not report any changes in mentation. Sister reports that she was supposed to go over his home this afternoon but he was not answering his phone therefore they called 911. 911 arrived to his house and patient was found on the ground. Family reports that he declined transport. Patient is alert and oriented x4. Family does report history of dementia however his current mentation is significantly different than his baseline. Patient reports that the fall was yesterday, unable to report what exactly happened. Patient is not on anticoagulation. No obvious focal deficits on examination however given changes in mentation, patient was stroke alerted and brought back to the main emergency department. Plan: Labs, EKG, CT head, CTA. Medications Administered Generic Name Dose Route Start Last Admin Trade Name Donellq PRN Reason Stop Dose Admin Cyanocobalamin 500 mcg 12/07/24 09:00 12/07/24 08:11 Cyanocobalamin (Vitamin B-12) 500 Mcg Tablet PO 500 mcg DAILY BENJAMIN Administration Donepezil HCl 10 mg 12/06/24 21:00 12/06/24 21:55 Donepezil Hcl 10 Mg Tablet PO 10 mg BEDTIME BENJAMIN Administration Folic Acid 1 mg 12/07/24 09:00 12/07/24 08:11 Folic Acid 1 Mg Tablet PO 1 mg DAILY BENJAMIN Administration Heparin Sodium (Porcine) 5,000 unit 12/06/24 19:15 12/07/24 07:38 Heparin Sodium,Porcine 5,000 Unit/Ml Vial SUBCUT 5,000 unit Q12H BENJAMIN Administration Lactated Ringer's 1,000 mls @ 125 mls/hr 12/06/24 20:00 12/07/24 12:23 Lr IVCONT Not Given .Q8H BENJAMIN Memantine 5 mg 12/07/24 09:00 12/07/24 08:11 Memantine Hcl 5 Mg Tablet PO 5 mg DAILY BENJAMIN Administration Omeprazole 20 mg 12/07/24 06:30 12/07/24 05:54 Omeprazole 20 Mg Capsule. PO 20 mg BID@0630,1630 BENJAMIN Administration Senna 17.2 mg 12/06/24 21:00 12/06/24 20:08 Sennosides 8.6 Mg Tablet PO 17.2 mg BEDTIME BENJAMIN Administration Sodium Chloride 3 ml 12/07/24 00:00 12/07/24 07:39 0.9 % Sodium Chloride Flush 3 Ml Syringe IVFLUSH Not Given QSHIFT BENJAMIN Discontinued Medications Generic Name Dose Route Start Last Admin Trade Name Freq PRN Reason Stop Dose Admin Sodium Chloride 1,000 mls @ 999 mls/hr 12/06/24 17:15 12/06/24 18:17 Ns IV 12/06/24 18:15 Infused .Q1H1M BENJAMIN Infusion Lactated Ringer's 1,000 mls @ 999 mls/hr 12/06/24 20:00 12/06/24 21:10 Lr IV 12/06/24 21:00 Infused .Q1H1M BENJAMIN Infusion Iohexol 100 ml 12/06/24 15:56 12/06/24 15:56 Iohexol 350 Mg/Ml 100 Ml Infus..Btl IV 12/06/24 15:57 70 ml ONCE ONE Administration Medical Decision Making Medical Decision Making MDM Narrative: Medical Decision Makin-year-old male with nonfocal altered mental status. Initial suspicion for non focal encephalopathy last known well was thought to be 23 hours however on further evaluation it was over 24 hours. The patient never exhibited or had objective findings of focal neurologic deficits more picture of generalized confusion/encephalopathy. Additionally he appears to have fallen and likely was on the ground for a long time. He has elevated CPK and an IAN. The patient has no obvious clinical signs of actionable extremity injury other than mild pressure ulcer of the right elbow which is likely pressure ulcer not a cellulitis. Chest and pelvic x-ray are reassuring. CT imaging ordered as stroke protocol upon arrival negative for cervical cranial vascular abnormality or intracranial abnormality. Patient likely does not need any continued evaluation for stroke given the further elucidation of the history based on my discussion with the patient and family. We will continue workup for encephalopathy, fall possible syncopal versus nonsyncopal and mild rhabdomyolysis with IAN. Troponin mildly elevated given the IAN this is unlikely to represent myocardial ischemia particularly given the lack of anginal symptomatology. Preliminary Favored Differential Diagnosis: Syncope versus nonsyncopal fall. IAN, prerenal versus obstructive less likely azotemia. Dehydration, rhabdomyolysis, head injury, chest or pelvic injury among additional considered etiologies Testing Interpreted Independently: ECG sinus rhythm rate 84 QTC 450 no acute ischemic changes. Question inferior Q Radiology or Lab testing Results Reviewed: ?See below for details Consults: ?See below for details Independent Historians/External Chart Reviews: ?See below for details Social Determinants of Health Impacting MDM/Planning: ?See below for details Consult Healthcare Provider Management of the patient was discussed with: Business Systems Advisor (Neurology/stroke team) Lab Data MDM Lab Attestation statement: I reviewed the patient's lab results. 12/07/24 06:46 12/07/24 06:46 Labs: Lab Results 12/06/24 12/06/24 12/06/24 Range/Units 16:07 16:34 18:42 WBC 12.6 H (4.8-10.8) X10*3/uL RBC 4.09 L (4.60-5.80) X10*6/uL Hgb 12.4 L (14.0-18.0) g/dl Hct 36.6 L (42.0-52.0) % MCV 89.5 (80.0-98.0) fL MCH 30.3 (27.0-33.0) pg MCHC 33.9 (31.0-36.0) g/dl RDW 12.9 (11.0-16.0) % Plt Count 381 (160-400) X10*3/uL MPV 10.1 (9.4-12.4) fL Immature Gran % (Auto) 0.3 (0.0-0.4) % Neut % (Auto) 85.4 H (45-73) % Lymph % (Auto) 6.2 L (20-40) % [place] % (Auto) 7.9 (2-11) % Eos % (Auto) 0.0 (0-4) % Baso % (Auto) 0.2 (0-2) % Lymph # (Auto) 0.8 L (1.2-4.9) X10*3/uL [place] # (Auto) 1.0 (0.1-1.2) X10*3/uL Eos # (Auto) 0.0 (0.0-0.4) X10*3/uL Baso # (Auto) 0.0 (0.0-0.2) X10*3/uL Abs Immat Gran (auto) 0.04 H (0.00-0.03) X10*3/uL Absolute Neuts (auto) 10.7 H (2.0-8.3) x10*3/uL Absolute Nucleated RBC 0.000 (0.0-0.012) X10*3/uL Nucleated RBC % (auto) 0.0 (0.0-0.2) /100WBC Hold Purple Top SEE NOTE PT 11.7 (10.9-12.4) SEC Whole Blood PT 13.3 (11.1-13.5) sec INR 1.0 (0.9-1.1) Whole Blood INR 1.1 (0.9-1.1) APTT 27.6 (26.7-34.1) SEC Sodium 144 (135-145) mmol/L Potassium 4.5 (3.3-5.1) mmol/L Chloride 108 (96-108) mmol/L Carbon Dioxide 25 (22-29) mmol/L Anion Gap 16 (12-20) BUN 42 H (9-16) mg/dL Creatinine 1.72 H (0.5-1.4) mg/dL Estim Creat Clear Calc 32.3 Estimated GFR 39 Random Glucose 111 (60-115) mg/dL Calcium 9.8 (8.4-10.2) mg/dL Magnesium 1.9 (1.6-2.6) mg/dL Total Bilirubin 0.9 (0.0-1.0) mg/dL Direct Bilirubin 0.4 (0.0-0.5) mg/dL AST 81 H (5-37) U/L ALT 24 (0-40) U/L Alkaline Phosphatase 89 (39-117) U/L Total Creatine Kinase 4044 H (38-174) U/L Troponin I High Sens 55.5 H 63.0 H (<3.5-35.0) ng/L NT-Pro-B Natriuret Pep 1777.2 H (<300) pg/mL Total Protein 7.0 (6.5-8.0) g/dL Albumin 4.3 (3.5-5.0) g/dL Triglycerides 63 (<150) mg/dL Cholesterol 131 (<200) mg/dL LDL Cholesterol, Calc 72 (<100) mg/dL HDL Cholesterol 47 (>40) mg/dL TSH 0.72 (0.32-4.0) uIU/mL Independent Interpretation I performed an independent interpretation of an: EKG (See above) Radiology Impression Discussion of test interpretation with radiology: I have reviewed the radiologist's reading. Independent Historian Clinical information obtained from an independent historian. History obtained from or confirmed by: Other (Family including niece and nephew) Discharge Plan Discharge Clinical Impression: Rhabdomyolysis Patient Disposition: Admitted As Inpatient Interventions: Admission Worksheet (ED) Last Done: 12/07/24 05:48 Discharge Date/Time: 12/07/24 09:50
--- NOTE | 2024-12-06 15:41 | ECG_ITS ---
Test Reason : STROKE Blood Pressure : */* mmHG Vent. Rate : 84 BPM Atrial Rate : 84 BPM P-R Int : 162 ms QRS Dur : 92 ms QT Int : 388 ms P-R-T Axes : 51 1 41 degrees QTcB Int : 458 ms Normal sinus rhythm with sinus arrhythmia Normal ECG When compared with ECG of 08-Jan-2020 01:00, No significant changes seen Referred By: Brittany Santamaria Electronically Signed By: CLEVE LUONG
[2024-12-06] MEDS: iohexoL 350 MG/ML 100 ML INFUS..BTL IV (15:56)
[2024-12-06 16:13] LABS: MANUAL DIFF FLAG NO
[2024-12-06 16:15] LABS: Hematocrit 36.6 % (42.0-52.0); Hemoglobin 12.4 g/dl (14.0-18.0); Imm Gran Abs Auto 0.04 X10*3/uL (0.00-0.03); Imm Gran Pct Auto 0.3 % (0.0-0.4); Lymphocytes Absolute Auto 0.8 X10*3/uL (1.2-4.9); Mean Corpuscular HGB Conc 33.9 g/dl (31.0-36.0); Mean Corpuscular Hemoglobin 30.3 pg (27.0-33.0); Mean Corpuscular Volume 89.5 fL (80.0-98.0); NRBC Abs Auto 0.000 X10*3/uL (0.0-0.012); NRBC Pct Auto 0.0 /100WBC (0.0-0.2); Platelet Count 381 X10*3/uL (160-400); Red Blood Count 4.09 X10*6/uL (4.60-5.80); White Blood Count 12.6 X10*3/uL (4.8-10.8)
[2024-12-06 16:21] LABS: INTERNATIONAL NORM RATIO 1.0 (0.9-1.1); Prothrombin Time 11.7 SEC (10.9-12.4)
[2024-12-06 16:24] LABS: Partial Thromboplastin Time 27.6 SEC (26.7-34.1)
[2024-12-06 16:30] LABS: Alanine Aminotransferase 24 U/L (0-40); Albumin Level 4.3 g/dL (3.5-5.0); Alkaline Phosphatase 89 U/L (39-117); Anion Gap 16 (12-20); Aspartate Amino Transferase 81 U/L (5-37); Blood Urea Nitrogen 42 mg/dL (9-16); Calcium 9.8 mg/dL (8.4-10.2); Carbon Dioxide 25 mmol/L (22-29); Chloride 108 mmol/L (96-108); Cholesterol 131 mg/dL (<200); Creatinine Clr Calc Pharmacy 32.3; Estimated Glomerular Filt Rate 39; HDL Cholesterol 47 mg/dL (>40); Magnesium 1.9 mg/dL (1.6-2.6); Potassium 4.5 mmol/L (3.3-5.1); Sodium 144 mmol/L (135-145); Total Protein 7.0 g/dL (6.5-8.0); Triglycerides 63 mg/dL (<150)
--- NOTE | 2024-12-06 16:30 | MHC.STROKE ---
Met with patient once CT scan complete Pt awake, alert, oriented to name, place, situation. Answering questions appropriately. Pt reports that he fell yesterday. States that he thinks he tripped over Gary my dog . States that he was trying to get up to the bathroom. Family found him on the ground. Bruising noted to right buttock and right elbow. Pt denies dizziness prior to fall, denies striking his head, denies LOC. Reports feeling well and no recent illness. Pt lives alone and is able to care for himself with ADL's. States that his sister lives nearby Denies smoking or ETOH. Medical hx and medications reviewed along with diet. Stroke Education reviewed with patient and son. All questions answered and plan of care discussed. Booklet provided.
[2024-12-06 16:32] LABS: Stroke Lab Use COMPLETE
[2024-12-06 16:37] LABS: Prothrombin Time Whole Bld POC 13.3 sec (11.1-13.5); ~PT, ~INR - Anti Coag Clinic 1.1 (0.9-1.1)
[2024-12-06 16:37] LABS: Troponin-I High Sensitivity 55.5 ng/L (<3.5-35.0)
--- OUTSIDE RECORDS SUMMARY | 2024-12-06 17:19 | XMS_ITS | Clinical Summary ---
Author Organization [facility] Address [address] [place] [address] Phone Care Team Providers Care Adjunct English Instructor Name Role Phone Mark Orozco MD Primary Care Provider Mark Orozco MD Unavailable [phone] Tesfaye Helton MD Unavailable Mason Ramirez MD Unavailable Harvey Guevara MD Unavailable Mark Orozco MD Unavailable Allergies Active Allergy Reactions Criticality Noted Date Comments Oxycodone Nausea and/or Vomiting,GI Upset 01/27/2022 Oxycodone-Acetaminophen 01/09/2023 Other reaction(s): sick feeling Other Reaction(s): sick feeling Simvastatin 10/07/2016 Other reaction(s): severe muscle pain Medications cholecalciferol (VITAMIN D3) 25 MCG (1,000 unit) tablet Take 1,000 Units by mouth daily. Active cyanocobalamin, vitamin B-12, (VITAMIN B-12) 500 MCG tabletIndications:Vitam in B12 deficiency Take 1 tablet (500 mcg total) by mouth daily. 100 tablet 3 022 Active ammonium lactate (AMLACTIN) 12 % cream Apply 1 Application topically 2 (two) times a day. Active atorvastatin (LIPITOR) 20 MG tabletIndications:Pure hypercholesterolemia Take 1 tablet by mouth once daily 90 tablet 3 024 Active memantine (NAMENDA) 5 MG tabletIndications:Demen tia, unspecified dementia severity, unspecified dementia type, unspecified whether behavioral, psychotic, or mood disturbance or anxiety Take 1 tablet (5 mg total) by mouth daily. 90 tablet 3 024 Active hydroCHLOROthiazide 12.5 MG tabletIndications:Essen tial (primary) hypertension Take 1 tablet (12.5 mg total) by mouth daily. 90 tablet 3 025 Active fluticasone propionate (FLONASE) 50 mcg/actuation nasal spray 2 sprays by Nasal route every morning. Active lisinopril (PRINIVIL,ZESTRIL) 30 MG tabletIndications:Essen tial hypertension Take 1 tablet (30 mg total) by mouth daily. 90 tablet 025 Active donepeziL (ARICEPT) 10 MG tablet Take 1 tablet (10 mg total) by mouth nightly at bedtime. 90 tablet 3 025 Active omeprazole (PRILOSEC) 20 MG capsuleIndications:Linda roesophageal reflux disease without esophagitis Take 1 capsule (20 mg total) by mouth 2 (two) times a day. 180 capsule 025 Active lisinopril (PRINIVIL,ZESTRIL) 30 MG tabletIndications:Essen tial hypertension Take 1 tablet by mouth once daily 90 tablet 3 024 2024 Disconti nued(Reo rder) donepeziL (ARICEPT) 10 MG tablet Take 1 tablet (10 mg total) by mouth nightly at bedtime. 90 tablet 3 024 2024 Disconti nued(Reo rder) omeprazole (PRILOSEC) 20 MG capsuleIndications:Linda roesophageal reflux disease without esophagitis Take 1 capsule by mouth twice daily 60 capsule 11 024 2024 Disconti nued(Reo rder) Active Problems Problem Noted Date Diagnosed Date Acute idiopathic gout of right foot 03/04/2021 Assessment & Plan (03/04/2021 4:12 PM EST): Agree with the patient that this is most likely gout especially with the absence of injury. That said no alcohol induced and unclear what food that he is eating could be causing this therefore I have challenged him to go onto the Internet and look at purine rich foods to avoid such as shrimp and other shellfish rich gravies meat that should be then eaten in less quantities. Better than naproxen for the inflammation of the foot would be indomethacin so 50 mg twice daily take with meals for short-term solution. Since he still has a lot of inflammation in his foot will repeat from the ER the prednisone at 20 mg twice daily for 7 days. Then with the uric acid level he can see in May when he sees his primary care physician whether he should go on allopurinol but I can discuss it with the PCP sooner if he is still having a lot of inflammation. By no means should he start the allopurinol until the inflammation is completely subsided. Osteoarthritis 05/13/2018 Overview (05/13/2018): osteroarthritis of the knees and shoulder Atypical nevi 05/07/2017 Essential (primary) hypertension 05/07/2017 Assessment & Plan (03/04/2021 4:10 PM EST): Depending on the uric acid level we could consider swapping out hydrochlorothiazide for gout friendly antihypertensive but I would like to hold off and see what the uric acid level comes back. History of renal calculi 05/07/2017 Nocturia 05/07/2017 Pure hypercholesterolemia 05/07/2017 Torn rotator cuff 03/09/2017 Overview (11/13/2020): right not repaired Encounters Date Type Department Care Team Description 12/06/2024 Telephone [facility] Internal Medicine [address] [place] [address] Bear Zhou PA-C Late Cancellation (12/06/24 at 1:00pm) 12/02/2024 Telephone [facility] Internal Medicine [address] [place] [address] Mark Orozco MD Possible gout 11/22/2024 Refill [facility] Endocrinology [place] [address] [facility] [place] [phone] Homer Gallego [place] Medication Refill 11/14/2024 Refill [facility] Internal Medicine [address] [place] [address] Mark Orozco MD Medication Refill; Medication Problem 10/21/2024 Orders Only [facility] Internal Medicine [address] [place] [address] Provider, MD Hong from Last 3 Months Immunizations Immunization Administration Dates Next Due COVID-19 (Pre-12/29) Pfizer Vaccine, mRNA, PF 05/23/2020,05/03/2020 INFLUENZA, SPLIT VIRUS, TRIVALENT PF 12/20/2015, 12/04/2014 INFLUENZA, SPLIT VIRUS, TRIV ALENT W/ PRESERVATIVE IM 01/27/2014,12/13/2012,01/08/2012 Influenza High-Dose Quadriva lent Preservative Free IM 12/12/2022,12/13/2021,11/29/2020,11/23 Influenza High-Dose Trivalen t Preservative Free IM 12/10/2023,11/26/2018,11/10/2017 Influenza Quadrivalent MDCK Preservative Free IM 11/27/2016 Pneumococcal conjugate PCV13 11/10/2017 Pneumococcal polysaccharide PPSV23 11/26/2018 RSV Vaccine (monovalent, adjuvanted) 02/13/2023 Td (adult),2 Lf Tetanus Toxo id, PF, Adsorbed 02/06/2005 Tdap 03/18/2012 Zoster live 01/17/2013 Zoster recombinant 08/20/2022,06/19/2022 Family History Medical History Relation Comments Diabetes Father Heart disease Father Kidney disease Mother Arthritis Sister Relation Status Comments Father (Age 76) Mother (Age 76) Sister Alive Social History Tobacco Use Types Packs/Day Years Used Date Smoking Tobacco: Never Smokeless Tobacco: Never Tobacco Cessation:Counseling Given: Not Answered Alcohol Use Standard Drinks/Week Comments Not Currently 0 (1 standard drink = 0.6 oz pur e alcohol) Education Answer Date Recorded Are you interested in more education? Not on lisa e 07/04/2022 Are you concerned about learning? Not on file 07/04/2022 No 07/04/2022 No 07/04/2022 Digital Access Answer Date Recorded No 08/04/2022 No 08/04/2022 Reliable internet access at home? Not on file 08/04/2022 Device with a working camera? Not on file Intimate Partner Violence Answer Date R ecorded Denied Basic Needs Not on file 06/26/2023 In the past 12 months have y ou been in a relationship with a person who hurts, threatens, or tries to control you? No 06/26/2023 Worried food would run out Not on file 06/25 In the past 12 months have y ou been in a relationship with a person who hurts, threatens, or tries to control you? No 06/26/2023 Sex and Gender Information Value Date Recorded Sex Assigned at Male 11/16/2020 12:58 PM EDT Legal Sex Male 9:59 PM EDT Gender Identity Male 11/16/2020 12:58 PM EDT Sexual Orientation Straight 11/16/2020 12 :58 PM EDT Last Filed Vital Signs Vital Sign Reading Time Taken Comments Blood Pressure 120/70 07/28/2024 2:29 PM EDT Pulse 65 07/28/2024 2:29 PM EDT Temperature 36.6 C (97.8 F) 07/28/2024 2:29 PM EDT Respiratory Rate 20 07/28/2024 2:29 PM EDT Oxygen Saturation 99% 07/28/2024 2:29 PM EDT Inhaled Oxygen Concentration - - Weight 65.9 kg (145 lb 3.2 oz) 07/28/2024 2:29 P M EDT Height 171.7 cm (5' 7.6 ) 07/28/2024 2:29 PM EDT Body Mass Index 22.34 07/28/2024 2:29 PM EDT Plan of Treatment Upcoming Encounters Date Type Department Care Team (Late st Contact Info) Description 01/30/2025 1:30 PM EST Office Visit [facility] Internal Medicine [address] [place] [address] Mark Orozco MD [address] [place] [address] 08/02/2025 1:00 PM EDT Office Visit [facility] Internal Medicine 40 [facility] [place] [address] Mark Orozco MD [address] [place] [address] [email or web address] Health Maintenance Due Date Last Done Comments COLOGUARD 1997 FIT TEST 1997 FOBT 1997 SIGMOIDOSCOPY 1997 VIRTUAL COLONOSCOPY 1997 Adult Td,Tdap Booster 03/18/2022 03/18/2012, 005 DEPRESSION SCREENING 06/25/2024 06/26/2023 INFLUENZA VACCINE (#1) 2024 , 12/12/2022, 12/12/2022, Additional history exists COVID-19 VACCINE ( season) 2024 12/25/2023, 12/03/2022, 12/02/2021, Additional history exists BLOOD PRESSURE 01/28/2025 07/28/2024 CREATININE LEVEL 07/28/2025 07/28/2024, 05/2023, 08/18/2023, Additional history exists POTASSIUM LEVEL 07/28/2025 07/28/2024, 12/05/2023, 08/18/2023, Additional history exists COLONOSCOPY 03/15/2029 03/15/2019, 02/19/2009 COLORECTAL CANCER SCREENING 03/15/2029 LIPID PANEL 07/28/2029 07/28/2024, 05/07, 07/08/2022, Additional history exists PNEUMOCOCCAL VACCINES (50+ years) Completed 11/26/2018, 11/10/2017 ZOSTER VACCINES Completed 08/20/2022, 06/07, 01/17/2013 RSV VACCINE Completed 02/13/2023 HEPATITIS C SCREENING Completed 07/01/2023 , 04/05/2019, 04/05/2019, Additional history exists SMOKING STATUS SCREENING (Once After 26 Yrs) Completed 07/28/2024 HEPATITIS A VACCINES Aged Out No long er eligible based on patient's age to complete this topic HIB VACCINES Aged Out No longer eligi ble based on patient's age to complete this topic MENINGOCOCCAL VACCINES (ACWY) Aged Out No longer eligible based on patient's age to complete this topic MENINGOCOCCAL VACCINES (B) Aged Out N o longer eligible based on patient's age to complete this topic Medical Devices Not on file Procedures Procedure Name Priority Date/Time Associated Diagnosis Comments OUTSIDE IMAGING Routine 10/11/2024 2:23 PM EDT LIPID PANEL Routine 07/28/2024 3:42 PM EDT Benign essential hypertension COMPREHENSIVE METABOLIC PANEL Routine 07/28/2024 3:42 PM EDT Benign essential hypertension HEPATITIS C ANTIBODY, QUALITATIVE Routine 07/01/2023 9:29 AM EDT Weight loss HM COLONOSCOPY FOR RESULT ENTRY ONLY Routine 03/15/2019 from Last 3 Months or Most Recently Relevant to Health Maintenance Results * Outside Imaging Report Only (10/11/2024 2:23 PM EDT) us Historical Provider [facility] XR CHEST Final Res ult * (ABNORMAL) Comprehensive metabolic panel (07/28/2024 3:42 PM EDT) SODIUM 140 133 - 146 mmol/L [facility] POTASSIUM 3.9 3.3 - 5.1 mmol/L [facility] CHLORIDE 102 96 - 108 mmol/L [facility] CO2 28 21 - 35 mmol/L [facility] BUN 25(H) 6 - 19 mg/dL [facility] CREATININE 1.40 0.5 - 1.5 mg/dL [facility] GLUCOSE 110(H) 70 - 99 mg/dL [facility] ALBUMIN 4.5 3.9 - 4.8 g/dL [facility] TOTAL PROTEIN 7.6 6.5 - 8.0 g/dL [facility] CALCIUM 10.0 8.4 - 10.3 mg/dL [facility] ALKALINE PHOSPHATASE 97 39 - 117 U/L [facility] TOTAL BILIRUBIN <0.2 0.0 - 1.2 mg/dL [facility] AST 24 0 - 37 U/L [facility] ALT 13 0 - 40 U/L [facility] GLOBULIN 3.1 1 - 4.8 g/dL [facility] EGFR 53(L) >59 mL/min/1.7 3m2 [facility] Comment:Estimated glomerular filtration rate calculated using the CKD-EPI refit equation. ANION GAP 14 10 - 20 mmol/L [facility] Blood 07/28/2024 3:42 PM EDT 07/28/2024 3:47 PM EDT us Mark Orozco MD LAB BLOOD ORDERABLES Final Re sult Performing Organization Address City/State/[facility] Co de Phone Number [address] [address] * (ABNORMAL) Lipid panel (07/28/2024 3:42 PM EDT) HDL 61 mg/dL [facility] Comment: Interpretation <40 mg/dL: Low HDL cholesterol (major risk factor for CHD) Greater than or equal to 60 mg/dL: High HDL cholesterol ( negative risk factor for CHD) HDL - cholesterol is affected by a number of factors, e.g. smoking, excerise, hormones, sex and age. CHOLESTEROL 150 0 - 240 mg/dL [facility] TRIGLYCERIDES 108 30 - 160 mg/dL [facility] LDL 67 50 - 129 mg/dL [facility] Comment: LDL levels in terms of risk for coronary heart disease: <100 mg/dL: Optimal 100-129 mg/dL: Near or above optimal 130-159 mg/dL: Borderline high 160-189 mg/dL: High >190 mg/dL: Very High CARDIAC RISK RATIO 2.5(L) 3.4 - 5.0 C [facility] Blood 07/28/2024 3:42 PM EDT 07/28/2024 3:47 PM EDT us Mark Orozco MD LAB BLOOD ORDERABLES Final Re sult [address] [address] * Hepatitis C antibody, qualitative (07/01/2023 9:29 AM EDT) HCV NON-REACTIV E NON-REACTI VE [facility] Blood 07/01/2023 9:29 AM EDT 07/01/2023 9:33 AM EDT Mark Orozco MD LAB BLOOD ORDERABLES Final Re sult Performing Organization Address [facility] Co de Phone Number [address] [address] * COLONOSCOPY FOR RESULT ENTRY ONLY (03/15/2019) Pathologist [facility] Colonoscopy 10 year repeat Historical Provider HEALTH MAINTENANCE Final Result from Last 3 Months or Most Recently Relevant to Health Maintenance Insurance [facility] [employer]OSS MEDEX SUPPLEMENT MEDICARE PART A & B [employer] MED[employer] SUPPLEMENT MEDICARE PART A & B [employer] MED[employer] SUPPLEMENT MEDICARE PART A & B [employer] MED[employer] SUPPLEMENT MEDICARE PART A & B [employer] MED[employer] SUPPLEMENT MEDICARE PART A & B [employer] MED[employer] SUPPLEMENT MEDICARE PART A & B [employer] MEDEX SUPPLEMENT MEDICARE PART A & B [facility] MEDEX SUPPLEMENT MEDICARE PART A & B [facility] [employer] MED[employer] SUPPLEMENT MEDICARE PART A & B Advance Directives For more information, please contact: [phone] (9AM - 5PM [facility], Thursday-Thursday) Documents on File Type Date Recorded Patient Trial Management Associate Expl anation Healthcare Proxy 05/17/2018 [facility] Proxy - signed Care Teams Adjunct English Instructor Relationship Specialty Start Date End Date Mark Orozco MD [address] [place] [address] PCP - General 12/25/16 Mark Orozco MD [address] [place] [address] Historical LMR Provider 12/27/16 Tesfaye Helton MD [address] [place] [address] [address] [place] [address] Gastroenterology 05/05/19 Mason Ramirez MD [address] [phone] [email or web address] 05/19/19 Harvey Guevara MD [address] [place] [address] Rheumatology 05/19/19 Mark Orozco MD [address] [place] [address] [email or web address] Insurance Assigned Provider 06/13/23 Additional Source Comments The information contained in this document represents components of the legal health record. It is not the complete legal health record.[facility]
--- OUTSIDE RECORDS SUMMARY | 2024-12-06 17:19 | XMS_ITS | Encounter Summary ---
Author Organization [facility] Address [address] [place] [address] Phone Care Team Providers Care Application Engineer Name Role Phone Mark Orozco MD Primary Care Provider Mark Orozco MD Unavailable Tesfaye Helton MD Unavailable Mason Ramirez MD Unavailable Harvey Guevara MD Unavailable [phone] Mark Orozco MD Unavailable [phone] Reason for Visit * Reason Onset Date Comments Late Cancellation 12/06/2024 12/06/24 at 1:0 0pm Encounter Details Date Type Department Care Team (Late st Contact Info) Description 12/06/2024 Telephone [facility] Internal [facility] [address] [place], [place] [phone] Bear Zhou PA-C [address] [place], [place] [phone] [email or web address] Late Cancellation (12/06/24 at 1:00pm) Social History Tobacco Use Types Packs/Day Years Used Date Smoking Tobacco: Never Smokeless Tobacco: Never Alcohol Use Standard Drinks/Week Comments Not Currently [...] Orientation Straight 11/16/2020 12 :58 PM EDT documented as of this encounter Progress Notes * Brigitte Hernandez - 12/06/2024 1:16 PM EDT 24-48 Hour No-Show Notice If caller not the patient: Name: Marisel Stephenson Relationship: sister Cancel Appt Visit Type: SICK VISIT Cancelation Reason: Personal Reasons Cancelation Detail: pt fell and had to call an ambulance Was Appt Reschedule: No Why Reschedule was not performed (W/Detail) she will have the pt call back to r/s himself Awareness: I have reiterated our late cancellation policy to the caller. Agent Action: > Reason for Call: NO SHOW > Comment: Enter Cancel Appt date > Route: Route to FD if the No-Show is a future date. > Route: OXBOW SDV and Sick Visit No-Show, route to RN for rescheduling. Do not Call Center: Ensure the appt has been cancel from the future tab > Reiterate Scripting: Provide our late cancellation policy to the caller Required Scripting for Existing Patients: Thank you for notifying us about the cancellation. We will inform the provider. As a reminder, our policy requires at least 24 hours' notice for cancellations, as providers reserve time for your appointment, and short notice often makes it difficult to reschedule. You can cancel appointments anytime through your [facility]. We appreciate your understanding. Required Scripting for New Patients: Thank you for notifying us about the cancellation. We will inform the provider. Please be aware of our 48-hour cancellation policy for new patients. If you need to cancel or reschedule, we ask for at least 48 hours' notice. If you miss an appointment or cancel without sufficient notice, it will be marked as a No-Show appointment. We allow for two unforeseen circumstances under this policy. This policy ensures that our providers can manage their schedules effectively. Additionally, you can cancel appointments anytime through your [facility]. documented in this encounter Plan of Treatment Upcoming Encounters Date Type Department Care Team (Late st Contact Info) Description 01/30/2025 1:30 PM EST Office Visit [facility] Internal Medicine [address] [place] [address] Mark Orozco MD [address] [place] [address] [email or web address] 08/02/2025 1:00 PM EDT Office Visit [facility] Internal Medicine [address] [place] [address] Mark Orozco MD [address] [place] [address] documented as of this encounter Visit Diagnoses Not on filedocumented in this encounter Additional Health Concerns Assessment Noted Time PHQ-2 Depression Total Score: 1 06/26/19 24 8:48 AM EDT documented as of this encounter Care Teams Application Engineer Relationship Specialty Start Date End Date Mark Orozco MD [address] [place] [address] PCP - General 12/25/16 Mark Orozco MD [address] [place] [address] Historical LMR Provider 12/27/16 Tesfaye Helton MD [address] [place] [address] Drive [address] [place] [address] Gastroenterology 05/05/19 Mason Ramirez MD [address] [place] [phone] [email or web address] Urology 05/19/19 [place] [address] [place] [address] Rheumatology 05/19/19 Mark Orozco MD [address] [place] [address] [email or web address] Insurance Assigned Provider 06/13/23 documented as of this encounter Additional Source Comments The information contained in this document represents components of the legal health record. It is not the complete legal health record.[facility]
--- OUTSIDE RECORDS SUMMARY | 2024-12-06 17:19 | XMS_ITS | Encounter Summary ---
Author Organization [facility] Address [address] [place] [address] Phone Care Team Providers Care Plastics Fitter Name Role Phone Mark Orozco MD Primary Care Provider Mark Orozco MD Unavailable Tesfaye Helton MD Unavailable [phone] Mason Ramirez MD Unavailable Harvey Guevara MD Unavailable Mark Orozco MD Unavailable [phone] Reason for Visit * Reason Onset Date Comments Possible gout 12/02/2024 Encounter Details Date Type Department Care Team (Late st Contact Info) Description 12/02/2024 Telephone [facility] Internal Medicine [address] [place], [place] [phone] Mark Orozco MD [address] [place], [place] [phone] [email or web address] Possible gout Social History Tobacco Use Types Packs/Day Years [...] as of this encounter Progress Notes * Melita Cuadra - 12/05/2024 8:43 AM EDT Patient called wanted to see Dr Orozco for gout - advised patient Dr Orozco recommended Urgent Care and nurse had relayed this to patient and that PCP had no openings for 6 weeks and offered appt with Bear DEL REAL - scheduled 12-06-24 * Osiris Torres RN - 12/02/2024 4:37 PM EDT Spoke to Rich and advised. * Mark Orozco MD - 12/02/2024 4:36 PM EDT Needs urgent care * Osiris Torres RN - 12/02/2024 4:30 PM EDT Called listed cell # and spoke to Oscar. He is reporting this started at the beginning of the week. States he has pain in his left foot. There is minimal swelling put he can't put pressure on the front of his foot due to the pain. Denies any recent falls or injuries. States he saw Dr. Martinez about [address] Orozco was not available and he prescribed something for gout that took care of the problem. Advised he may need to be seen or have new labs done. Asked to have Dr. Orozco look at this information to see if he can send something in for him. * Osiris Torres RN - 12/02/2024 4:27 PM EDT Called the listed number and advised this is his EC and I should call him at [phone]. Called and that line is busy. * Urbano Osborn - 12/02/2024 4:20 PM EDT Patient called states he has been having pain in his left foot for most of this week. He states hisfoot gives out when weight bearing. No swelling. He has had gout previously, thinks this may be another attack documented in this encounter Plan of Treatment Upcoming Encounters Date Type Department Care Team (Late st Contact Info) Description 01/30/2025 1:30 PM EST Office Visit [facility] Internal Medicine [address] [place] [address] Mark Orozco MD [address] [place] [address] 08/02/2025 1:00 PM EDT Office Visit [facility] Internal Medicine [address] [place], [place] [phone] Mark Orozco MD [address] [place], [place] [phone] documented as of this encounter Visit Diagnoses Not on filedocumented in this encounter Additional Health Concerns Assessment Noted Time PHQ-2 Depression Total Score: 1 06/26/19 24 8:48 AM EDT documented as of this encounter Care Teams Plastics Fitter Relationship Specialty Start Date End Date Mark Orozco MD [address] [place] [address] PCP - General 12/25/16 Mark Orozco MD [address] [place] [address] Historical LMR Provider 12/27/16 Tesfaye Helton MD [address] [place] [address] [address] [place] [phone] Gastroenterology 05/05/19 Mason Ramirez MD [address] [place] [phone] [email or web address] Urology 05/19/19 [place] [address] [place] [address] Rheumatology 05/19/19 Mark Orozco MD [address] [place] [address] [email or web address] Insurance Assigned Provider 06/13/23 documented as of this encounter Additional Source Comments The information contained in this document represents components of the legal health record. It is not the complete legal health record.[facility]
--- OUTSIDE RECORDS SUMMARY | 2024-12-06 17:20 | XMS_ITS | Patient Health Record ---
Author Organization [facility] Zeferino Reeves Address [address] [address] Care Team Providers Care Can Slider Name Role Phone Mark Orozco MD Primary Care Provider Chriss Sy Unavailable [phone] Allergies No Known Allergies Reason For Referral No Information Medications Medication SIG (Take, Route, Frequency, Duration) Notes Start Date End Date Status Atorvastatin Calcium 20 MG 1 tablet Oral ly Once a day; Duration: 30 day(s) Active Vitamin B12 Active Omeprazole Active Memantine HCl 5 MG 1 tablet Orally Once a day Active Aricept Active Ammonium Lactate 12 % 1 application Externally Twice a day; Duration: 30 days Active Vitamin D3 Not-Takin g hydroCHLOROthiazide 12.5 MG 1 capsule in the morning Orally Once a day; Duration: 30 day(s) Active Lisinopril 30 MG 1 tablet Orally Once a day; Duration: 30 day(s) Active Immunizations Vaccine Route Administration Date Status Comme nts Influenza Unknown 12/08/2023 Administered COVID-19 Pfizer BioNTech Vaccine Unknown 12/04/2020 Administered First Dose:05/03/2020 Second Dose: 05/23/2020 Social History Tobacco Use: Social History Observation Description Date Details (start date - stop date) Never Smoker NA - NA Tobacco use other than smoking: Question Answer Notes Are you an other tobacco user? No Tobacco Control (Standard) Question Answer Notes Tobacco use: Nonsmoker Additional Findings: Tobacco non-user Current no nsmoker AUDIT-C (Standard) Question Answer Notes Did you have a drink containing alcohol in the p ast year? No Points 0 Interpretation Negative Problems Problem Type SNOMED Code ICD Code Onset Dates Problem Status W/U Status Risk Notes Problem Onychomycosis (193707655) Onychomycosis (B35.1) Active confirmed Problem Verruca pedis (56692479) Verruca pedis (B07.0) Active confirmed Vital Signs Blood pressure diastolic 65 mm Hg 11/29/2024 Height 2en00ae in 11/29/2024 Blood pressure systolic 126 mm Hg 11/29/2024 Weight 150 lbs 11/29/2024 BMI 21.52 kg/m2 11/29/2024 Procedures Procedure Date Ordered Date Performed Result Body Sit e 75354-RJSCUZA NAIL, 6 OR MORE 03/01/2024 N/A 26164-Ibgd Destruction, 1-14 03/01/2024 N/A 11789-AZRHDME NAIL, 6 OR MORE 06/03/2024 N/A 53801-Mtsm Destruction, 1-14 06/03/2024 N/A 12108-REUQFZU NAIL, 6 OR MORE 08/30/2024 N/A 19505-Btkz Destruction, 1-14 08/30/2024 N/A 54086-SRNIEGA NAIL, 6 OR MORE 11/29/2024 N/A 17546-Fsyu Destruction, 1-14 11/29/2024 N/A Encounters Encounter [facility] Date [facility] [address] [facility]/01/[facility]24 Chriss Joan Pain of toe of right foot M79.674 ; Onychomycosis B35.1 ; Pain of toe of left foot M79.675 ; Verruca pedis B07.0 ; Right foot pain M79.671 and Left foot pain M79.672 [facility] [address] 06/03/2024 Chriss Joan Pain of toe of right foot M79.674 ; Onychomycosis B35.1 ; Pain of toe of left foot M79.675 ; Verruca pedis B07.0 ; Right foot pain M79.671 and Left foot pain M79.672 [facility] [address] 08/30/2024 Chriss Joan Pain of toe of right foot M79.674 ; Onychomycosis B35.1 ; Pain of toe of left foot M79.675 ; Verruca pedis B07.0 ; Right foot pain M79.671 and Left foot pain M79.672 [facility] [address] [place] [address] 11/29/2024 Chriss Joan Pain of toe of right foot M79.674 ; Onychomycosis B35.1 ; Pain of toe of left foot M79.675 ; Verruca pedis B07.0 and Left foot pain M79.672 Assessments Encounter Date Diagnosis (ICD Code) Assessment Notes Treatment Notes Treatment Clinical Notes Section Notes 03/01/2024 Pain of toe of right foot (ICD-10 - M79.674) 06/03/2024 Pain of toe of right foot (ICD-10 - M79.674) 08/30/2024 Pain of toe of right foot (ICD-10 - M79.674) 11/29/2024 Pain of toe of right foot (ICD-10 - M79.674) 11/29/2024 Onychomycosis (ICD-10 - B35.1) 11/29/2024 Pain of toe of left foot (ICD-10 - M79.675) 08/30/2024 Onychomycosis (ICD-10 - B35.1) 06/03/2024 Onychomycosis (ICD-10 - B35.1) 06/03/2024 Pain of toe of left foot (ICD-10 - M79.675) 08/30/2024 Pain of toe of left foot (ICD-10 - M79.675) 03/01/2024 Onychomycosis (ICD-10 - B35.1) 03/01/2024 Pain of toe of left foot (ICD-10 - M79.675) 03/01/2024 Verruca pedis (ICD-10 - B07.0) 06/03/2024 Verruca pedis (ICD-10 - B07.0) 08/30/2024 Verruca pedis (ICD-10 - B07.0) 11/29/2024 Verruca pedis (ICD-10 - B07.0) 11/29/2024 Left foot pain (ICD-10 - M79.672) 08/30/2024 Right foot pain (ICD-10 - M79.671) 06/03/2024 Right foot pain (ICD-10 - M79.671) 03/01/2024 Right foot pain (ICD-10 - M79.671) 03/01/2024 Left foot pain (ICD-10 - M79.672) 06/03/2024 Left foot pain (ICD-10 - M79.672) 08/30/2024 Left foot pain (ICD-10 - M79.672) Plan Of Treatment Pending Test Test Name Order Date X ray : Foot, right 3V 03/12/2021 74414-ONYMNXQ NAIL, 6 OR MORE 09/08/2022 14404-NDKXDAF NAIL, 6 OR MORE 11/18/2022 60884-ITBXMSR NAIL, 6 OR MORE 01/27/2023 89307-JENBBDP NAIL, 6 OR MORE 04/07/2023 66559-COWJHXL NAIL, 6 OR MORE 06/16/2023 84120-YZOVFCF NAIL, 6 OR MORE 09/08/2023 28027-DPYZQPA NAIL, 6 OR MORE 12/01/2023 53263-VBWJRTK NAIL, 6 OR MORE 03/01/2024 22431-XJDJLNL NAIL, 6 OR MORE 06/03/2024 67524-ODCYFAD NAIL, 6 OR MORE 08/30/2024 29804-ZGFPAAP NAIL, 6 OR MORE 11/29/2024 68258-Knnt Destruction, 1-14 11/29/2024 69041-Whcn Destruction, 1-14 08/30/2024 25436-Hnba Destruction, 1-14 06/03/2024 50476-Ajdm Destruction, 1-14 03/01/2024 67618-Xyou Destruction, 1-14 12/01/2023 73938-Nibn Destruction, 1-14 09/08/2023 53188-Rxvl Destruction, 1-14 06/16/2023 09869-Dsyw Destruction, 1-14 04/07/2023 67062-Acwe Destruction, 1-14 01/27/2023 67888-Hssd Destruction, 1-14 11/18/2022 85067-Bpwr Destruction, 03-2209/08/2022 Next Appt Details Provider Name:Chriss Franco , 03/28/2025 02:00:00 PM, [address] [place], [address], Insurance Providers Payer Name Payer Address Payer Phone Subscriber Number Group Number Insured Name Patient Relationship to Insured Coverage Start Date Coverage End Date Medicare National Govt Svcs [employer] [address] [place] [address] [id number] Oscar Cobian Self - patient is the insured [employer] [address] [place] [address] [id number] Oscar Cobian Self - patient is the insured Medical (General) History Medical History History ICD Code Arthritis Back,Hip,and Knee pain High blood pressure Measles Mumps Chicken pox Surgical History Surgery Date(Month/Year) knee replacement x2 [phone]
--- OUTSIDE RECORDS SUMMARY | 2024-12-06 17:20 | XMS_ITS | Patient Health Record ---
Author Organization [facility] Address [address] [place] [address] Care Team Providers Care Buffet Attendant Name Role Phone Mark Orozco MD Primary Care Provider Tesfaye Da Silva [phone] Allergies Allergen (clinical drug ingredient) Drug/Non Drug Allergy documented on EMR Reaction Allergy Type Onset Date Status acetaminophen / oxycodone Percocet sick feeling Drug Allergy Active Reason For Referral No Information Medications Medication SIG (Take, Route, Frequency, Duration) Notes Start Date End Date Status Atorvastatin Calcium 30 1 tablet Orally Once a day Active Lisinopril 20 MG 1 tablet Orally Once a day Active hydroCHLOROthiazide 25 MG 1 tablet in th e morning Orally Once a day Active Aspirin 81 81 MG 1 tablet Orally as needed Not-Taking Omeprazole 20 MG 1 capsule 30 minutes before morning meal Orally as needed Active Vitamin B 12 100 MCG as directed Orally Active Immunizations Vaccine Route Administration Date Status Comme nts Influenza Unknown 10/07/2018 Administered Influenza Unknown 01/08/2022 Administered Social History Tobacco Use: Social History Observation Description Date Details (start date - stop date) Never Smoker NA - NA Tobacco Use/Smoking Question Answer Notes Patient is a nonsmoker Alcohol Screen Question Answer Notes Did you have a drink containing alcohol in the p ast year? No Points 0 Interpretation Negative Section Notes: Nonsmoker; no sig alcohol Nonsmoker; no sig alcohol Nonsmoker; no sig alcohol Problems Problem Type SNOMED Code ICD Code Onset Dates Problem Status W/U Status Risk Notes Problem Epigastric pain (61113889) Epigastric pain (R10.13) Active confirmed Problem 051352796 Encounter for screening for malignant neoplasm of colon (Z12.11) Active confirmed Problem 022397525 Abdominal bloati ng (R14.0) Active confirmed Problem 473137591 Long-term use of aspirin therapy (Z79.82) Active confirmed Problem Gastroesophageal reflux disease (861649226) GERD (gastroesophageal reflux disease) (K21.9) Active confirmed Problem 880865640129363 Pre-procedural examination (Z01.818) Active confirmed Problem Gastroesophageal reflux disease (081677542) Gastroesophageal reflux disease, unspecified whether esophagitis present (K21.9) Active confirmed Plan Of Treatment Pending Test Test Name Order Date US ABD 01/17/2022 Future Test Test Name Order Date COLONOSCOPY 02/17/2019 UPPER GI ENDOSCOPY 01/17/2022 Insurance Providers Payer Name Payer Address Payer Phone Subscriber Number Group Number Insured Name Patient Relationship to Insured Coverage Start Date Coverage End Date MEDICARE OF [place] [address] [facility] [place] [address] [phone] [id number] ROBBIN KILPATRICK Self - patient is the insured [employer] ATT[employer] CLAIMS [address] [place] [address] [id number] ROBBIN KILPATRICK Self - patient is the insured Medical (General) History Medical History History ICD Code Kidney stones--ESWL Hypertension Hyperlipidemia GERD--EGD 01/2022 with minim al hiatal hernia, no esophagitis, gastric biopsies negative for H.pylori Denies SD,DM,CVA,Lung disease,renal dise ase Negative screening colonoscopy in 2008 a nd in 03/2019 U/S of Gallbladder in 2 with ? of a GB polyp or tiny stone--asymptomatic Surgical History Surgery Date(Month/Year) Bilateral knee replacements with Dr. Dallas slater
--- NOTE | 2024-12-06 19:00 | PC.NURSE ---
Patient incontinent of urine. Provider aware. Purewick in place. Will attempt to collect urine specimen at next void.
[2024-12-06 19:07] LABS: Troponin-I High Sensitivity 63.0 ng/L (<3.5-35.0)
--- NOTE | 2024-12-06 19:14 | PM.IMHP ---
History of Present Illness Date of Service: 12/06/24 Attending physician on admission: Yvette Leroy Chief Complaint: fall, ? syncope Patient is a 74-year-old male with past medical history hyperlipidemia, hypertension, dementia on donepezil and memantine, GERD, essential tremor (1st appointment with the Neurology is next week), weight loss currently living alone appearance to fall last evening while watching the baseball game. Patient remembers getting into bed and then having to get up to use the bathroom and was not using a assistive device and tripped over his dog. Patient denies any hit to the head, loss of consciousness or dizziness but fell to the floor and was unable to get himself up. Patient denies history of diabetes or hypoglycemia. Patient does have an emergency device but did not have the device on his person and no cell phone. Patient remained on the floor until the next day when a relative checked in on him and because the apartment was locked, called 911 and 911 was able to get in through the window and found patient on the floor. Workup in the ED noted evidence of IAN with rhabdomyolysis with an elevated CK level of 3376. Patient currently alert and orientated x3 appears frail but denies any previous falls or syncopal episodes in the past. Patient's son present in the ED and is aware that patient's goal is to remain home living alone but there are improvements that could be made in the home setting to prevent falls including removal of throw rugs. Patient does use meals on wheels twice a day. Patient attempts to cook in the evening but there is concern regarding patient's overall ability with noted BMI 19.8. Head and neck CTA negative for any significant stenosis and no opacification of the left transverse sinus seen but presence of venous sinus thrombosis is not ruled in or out per radiologist. Head CT negative for acute intracranial hemorrhage or acute brain abnormality. Chest x-ray negative for any acute findings including pneumonia, pulmonary edema or pleural effusion. Pelvis x-ray negative for fracture. 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 BNP also elevated but pt presents euvolemic and no murmur on exam. Review of Systems Review of Systems: Patient currently denies any chest pain, shortness of breath at rest or with exertion, abdominal pain, nausea/vomiting, diarrhea or constipation. Patient denies any problems with swallowing. Patient states his appetite is fair. Patient denies any open wounds, patient is not having any headaches or visual changes. Yes all other systems are reviewed and are negative [facility] Medical History (Updated 12/06/24 @ 22:03 by SARAH Marcelo) Weakness Weight loss Essential tremor Dementia Hyperlipemia HTN (hypertension) Cognitive capacity: Alert and orientated x3 Functional capacity: independent ambulation (Patient does not have a walker at the home setting) Family History Maternal Grandmother Rectal cancer Surgical History History of left inguinal hernia repair (09/01/19) History of umbilical hernia repair (09/01/19) History of arthroplasty of right knee (06/29/16) 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) History of arthroplasty of left knee History of total right knee replacement (TKR) Social History Unable to assess alcohol history related to: Unknown Alcohol intake: never Patient Tobacco Use Status: Never used Tobacco Smoked in Last 30 Days: No Use of substances other than those prescribed or required for medical reasons: Unknown Advance Directives: No Advance Directives Information Provided: No Nutrition Risks: On aspiration precautions Ebola Risk: Travel/Contact With Anyone From Affected Area/s: No Has Patient Experienced Ebola Symptoms: No Meds Allergies Allergy/AdvReac Type Severity Reaction Status Date / Time acetaminophen (From Percocet) AdvReac Stomach Verified 12/06/24 15:41 Upset oxycodone (From Percocet) AdvReac Stomach Verified 12/06/24 15:41 Upset Home Medications ?Medication ?Instructions ?Recorded ?Confirmed ?Last Taken ?Type atorvastatin 20 mg tablet 1 tab PO DAILY 01/24/22 12/06/24 12/05/24 History hydrochlorothiazide 12.5 mg tablet 1 tab PO DAILY 01/24/22 12/06/24 12/05/24 History lisinopril 30 mg tablet 1 tab PO DAILY 01/24/22 12/06/24 12/05/24 History omeprazole 20 mg capsule,delayed 1 cap PO BID 11/12/06/24 12/05/24 History release vitamin B12 0.5 mg-folic acid 1 mg 1 tab PO DAILY 09/16/22 12/06/24 12/05/24 History tablet donepezil 10 mg tablet 10 mg PO BEDTIME 12/06/24 12/06/24 12/05/24 History memantine 5 mg tablet 5 mg PO DAILY 12/06/24 12/06/24 12/05/24 History Physical Exam Vital Signs and Narrative: Vital Signs: Last Vital Signs Temp 99.5 F 12/06/24 16:15 Pulse 77 12/06/24 18:49 Resp 16 12/06/24 18:49 BP 135/81 12/06/24 18:49 Pulse Ox 98 12/06/24 18:49 O2 Del Method Room Air 12/06/24 18:49 BMI result Body Mass Index 19.8 Alert and orientated X3, able to give good history. Son at the bedside Neuro: CN II-X11 intact, visual acuity intact EYES: PERRLA, EOM intact, sclerae nonicteric, glasses in place ENT: hearing intact, no issues with swallowing, uvula midline, lips moist, nares patent no epistaxis Cardiac: S1 S2 RRR, no murmur, no JVD, no edema in Lower ext Pulmonary: lungs clear to auscultation B Abdominal: BS active in all 4 quadrants, no guarding, tenderness, rebounding MSK: strength 2-3/5 upper and lower extremities, essential tremor noted in the hands : no CVA tenderness no bladder distension Extremities: no edema in lower extremities, PT and DP pulses palpable +2 Psych: mood stable, judgement and insight fair Skin: Mild bruising left upper extremity Results Labs 12/06/24 16:07 12/06/24 16:07 Labs: Laboratory Results - last 24 hr 12/06/24 12/06/24 12/06/24 16:07 16:34 18:42 MCV 89.5 MCH 30.3 MCHC 33.9 RDW 12.9 Plt Count 381 MPV 10.1 Immature Gran % (Auto) 0.3 Neut % (Auto) 85.4 H Lymph % (Auto) 6.2 L [place] % (Auto) 7.9 Eos % (Auto) 0.0 Baso % (Auto) 0.2 Lymph # (Auto) 0.8 L [place] # (Auto) 1.0 Eos # (Auto) 0.0 Baso # (Auto) 0.0 Abs Immat Gran (auto) 0.04 H Absolute Neuts (auto) 10.7 H Absolute Nucleated RBC 0.000 Nucleated RBC % (auto) 0.0 Hold Purple Top SEE NOTE PT 11.7 Whole Blood PT 13.3 INR 1.0 Whole Blood INR 1.1 APTT 27.6 Anion Gap 16 Estim Creat Clear Calc 32.3 Estimated GFR 39 Random Glucose 111 Calcium 9.8 Magnesium 1.9 Total Bilirubin 0.9 Direct Bilirubin 0.4 AST 81 H ALT 24 Alkaline Phosphatase 89 Total Creatine Kinase 4044 H Troponin I High Sens 55.5 H 63.0 H Total Protein 7.0 Albumin 4.3 Triglycerides 63 Cholesterol 131 LDL Cholesterol, Calc 72 HDL Cholesterol 47 ECG Attestation: I personally reviewed and interpreted this ECG as follows: (Normal sinus rhythm with sinus arrhythmia QTC 458) Prior ECG tracings: available for review Imaging Radiologist's Impressions: Impressions Head CT 12/06/24 15:48 IMPRESSION: No acute intracranial hemorrhage or acute brain abnormality by CT. This critical result was discussed with the emergency physician hospital administrative assistant Brittany Santamaria via [employer] at 4:00 PM hours on December 06, 2024. It was ascertained that the content and urgency of the report was understood at the time of direct communication. Electronically signed by: Pete Rucker MD 12/06/2024 04:02 PM EDT RP Head/Neck CTA 12/06/24 15:56 IMPRESSION: Right shoulder is anteriorly subluxed. CTA NECK: No hemodynamically significant stenosis. CTA HEAD: No hemodynamically significant stenosis. Left transverse sinus is not opacified which is probably related to bolus timing. Presence of venous sinus thrombosis is not ruled in or out. Brittany Santamaria, PAC notified (Read) via [employer] at 4:39 pm ET Electronically signed by: Tony Huertas MD 12/06/2024 04:38 PM EDT RP Chest X-Ray 12/06/24 16:40 IMPRESSION: No acute disease. 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 Partially obscured superior pubic rami. No fracture is demonstrated. Electronically signed by: Tony Huertas MD 12/06/2024 04:55 PM EDT RP Assessment and Plan (1) IAN (acute kidney injury): Status: Acute (2) Rhabdomyolysis: Qualifiers: Encounter type: initial encounter Rhabdomyolysis type: traumatic Qualified Code(s): T79.6XXA - Traumatic ischemia of muscle, initial encounter Status: Acute (3) Near syncope: Status: Acute (4) Fall: Qualifiers: Encounter type: initial encounter Qualified Code(s): W19.XXXA - Unspecified fall, initial encounter Status: Acute Plan Patient is a 74-year-old male with past medical history hyperlipidemia, hypertension, dementia on donepezil and memantine, GERD, essential tremor (1st appointment with the Neurology is next week), weight loss currently living alone appearance to fall last evening while watching the baseball game. Patient remembers getting into bed and then having to get up to use the bathroom and was not using a assistive device and tripped over his dog. Patient denies any hit to the head or loss of consciousness or dizziness but fell to the floor and was unable to get himself up. Patient denies history of diabetes or hypoglycemia. IAN/ RHabdomyolosis IVF bolus 2L, hourly rate 125 nmls Repeat CK 2300 Nephrology consulted Measure I/Os Q8H Bladder scan as needed Near syncope with unwitnessed fall - unable to confirm no loss of consciousness or near syncopal episode Echo ordered - incidentally NT-BNP is elevated, 1772 Pt is not on blood thinners Lives alone with dementia, not using walker, was not wearing emergency device at time of fall Case management consulted PT consulted Fall prevention measures in place Mild Leukocytosis UA pending No hypoxia, no indication for CXR May be reactive HTN Avoid hypotension Hold Lisinopril, HCTZ due to IAN Hydralazine prn HLD Hold Statin due to elevated CK and Rhabdomyolosis Cardiac Diet GERD Continue omeperazole Progressing wt loss, deconditioning Nutritional consultation placed Ensure BID as long as renal fx improves PT eval ordered, pt may need to learn to use walker in the home for fall prevention Dementia Continue Ariicept Continue memantine Pt's goals of care are to remain at home, living alone as long as possible CM consulted to review services pt could be eligible for as pt is homebound Essential Tremor Pt has outpatient appt with neurology next week, first appt Likely pt will benefit from evaluation to learn to use walker at home Noted diminished strength in upper and lower extremities on exam PT eval DVT prophylaxis: heparin SC MED REC COMPLETED FULL CODE Quality Stroke Does the patient have a stroke diagnosis?: No Reason for No Anti-thrombotic by Day Two: N/A - Med Ordered VTE Prior VTE?: No VTE Risk Level:: Medical - moderate - high VTE Device Contraindication: N/A - Device Ordered VTE Drug Contraindication: N/A - Med Ordered
--- NOTE | 2024-12-06 19:50 | PHA.MEDREC ---
Addendum entered by Justen Martini [facility] 12/06/24 19:59: med rec reviewed Original Note: Pharmacy Consult ? Medication Reconciliation Pharmacy has reviewed the medication reconciliation done by nursing. Claims match med list.
[2024-12-06 20:09] LABS: NT Pro B Type Natriuretic Pept 1777.2 pg/mL (<300)
[2024-12-06] MEDS: Lactated Ringers 1,000 ML 999 ML IV (20:09)
[2024-12-06] MEDS: Lactated Ringers 1,000 ML 125 ML IVCONT (20:09)
[2024-12-06 21:04] LABS: Appearance Urine Clear; Glucose Urine UA Negative (Negative); PH 5.5 (5.0-9.0); Specific Gravity - Urine >= 1.030 (1.005-1.025); UMIC TRIGGER UACC YES
--- NOTE | 2024-12-06 21:21 | PC.NURSE ---
Aricept 10mg requested from pharmacy. This medication is not available in ED. Purewick in place. Son left bedside to go home at this time. Awaiting bed assignment at this time. LR infusing at 125 ml/hr as ordered. Denies complaints at this time. Watching baseball game on TV. Care ongoing by this RN.
--- NOTE | 2024-12-06 23:10 | PC.NURSE ---
Took over care from MARIA R Lopez at 23:00pm
[2024-12-07] VITALS (8 sets, daily range): BP systolic 108–156; BP diastolic 58–76; PULSE 56–116; RESP 12–20; TEMP 36.5–37.5; O2SAT 96–99; BMI 19.8
--- NOTE | 2024-12-07 02:25 | PC.NURSE ---
pt appears to be confused and need to be directed at times.
--- NOTE | 2024-12-07 03:54 | PC.NURSE ---
pt sleeping at this time.
[2024-12-07] MEDS: Lactated Ringers 1,000 ML 125 ML IVCONT ×2 (04:05→21:49)
--- NOTE | 2024-12-07 05:58 | PC.NURSE ---
pt medicated per mar.
--- NOTE | 2024-12-07 07:00 | CA_ITS ---
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 The visually estimated ejection fraction is between 60-65%. - There is moderate calcification of the aortic valve. No significant aortic stenosis. Findings Procedure Information The study quality is limited by the patients inability to tolerate the test. Left Ventricle Normal left ventricular cavity size. There is normal left ventricular wall thickness. The left ventricular systolic function is normal. The visually estimated ejection fraction is between 60-65%. There is no evidence of regional wall motion abnormalities. Diastolic function is normal for age. Right Ventricle Normal right ventricular cavity size and systolic function. Atria Both atria are normal in size. Aortic Valve There is moderate calcification of the aortic valve. There is no aortic valve regurgitation. No significant aortic stenosis. Mitral Valve The mitral valve appears normal. There is trace mitral valve regurgitation. There is no mitral valve stenosis. Pulmonic Valve The pulmonic valve is likely normal. Tricuspid Valve There is trace tricuspid valve regurgitation. There is no evidence of pulmonary hypertension. Great Vessels The asc aorta is normal in size. Venous The inferior vena cava was not well visualized. Pericardium/Pleural There is no evidence of pericardial effusion. Prior Study Comparison No prior study available for comparison. Measurements 2D Linear Measurements IVSd: 0.93 0.6-0.9/0.6-1.0 cm LVIDd: 4.80 3.9-5.3/4.2-5.9 cm LVIDd Index: 2.82 2.4-3.2/2.2-3.1 cm/m2 LVIDs: 3.05 2.0-3.6 cm LVPWd: 0.96 0.7-1.1 cm LA Diam: 3.40 2.7-3.8/3.0-4.0 cm LAIDs Index: 2.00 1.5-2.3 cm/m2 LV Mass: 195.40 67-162/88-224 g LV Mass Index: 114.94 43-95/49-115 g/m2 LVOT Diam: 2.20 3.0+(-)1.3 cm Mitral Valve MV Pk E: 1.00 MV PK A: 0.74 MV Decel Time: 212.00 E/A: 1.30 E'Lateral: 12.50 E'Medial: 8.81 E/E' Med: 11.40 E/E' Lat: 8.00 PHT: 62.00 MVA PHT: 3.55 Decel [place]: 4.72 Aortic Valve AoV Pk Ronald: 1.92 AoV Mn Ronald: 1.27 AoV VTI: 0.37 AoV Pk Grad: 15.00 Aov Mn Grad: 8.00 RONI Cont.VTI: 1.87 LVOT LVOT Pk Ronald: 0.98 LVOT Mn Ronald: 0.61 LVOT VTI: 0.18 LVOT Pk Grad: 4.00 LVOT Mn Grad: 2.00 LVOT Diam: 2.20 LVOT Area: 3.80 Diastolic Function MV Pk E: 1.00 MV Pk A: 0.74 E/A: 1.30 E'Medial: 8.81 E/E' Med: 11.40 E' Laterial: 12.50 E/E' Lat: 8.00 Right Ventricle TAPSE (mm): 19.40 TVS' Ronald: 23.00 Great Vessels Aorta Sinus of Valsalva: 3.46 2.0-3.5 cm Ao Asc: 3.70 2.1-3.4 cm Updated in Other Vendor System with Status of Final Miguel Pastor MD electronically signed on 12/08/2024 8:25:13 AM with status of Final
[2024-12-07 07:05] LABS: MANUAL DIFF FLAG NO
[2024-12-07 07:14] LABS: Hematocrit 32.5 % (42.0-52.0); Hemoglobin 10.8 g/dl (14.0-18.0); Imm Gran Abs Auto 0.02 X10*3/uL (0.00-0.03); Imm Gran Pct Auto 0.2 % (0.0-0.4); Lymphocytes Absolute Auto 1.7 X10*3/uL (1.2-4.9); Mean Corpuscular HGB Conc 33.2 g/dl (31.0-36.0); Mean Corpuscular Hemoglobin 30.1 pg (27.0-33.0); Mean Corpuscular Volume 90.5 fL (80.0-98.0); NRBC Abs Auto 0.000 X10*3/uL (0.0-0.012); NRBC Pct Auto 0.0 /100WBC (0.0-0.2); Platelet Count 339 X10*3/uL (160-400); Red Blood Count 3.59 X10*6/uL (4.60-5.80); White Blood Count 8.8 X10*3/uL (4.8-10.8)
[2024-12-07 07:27] LABS: Anion Gap 17 (12-20); Blood Urea Nitrogen 37 mg/dL (9-16); Calcium 8.9 mg/dL (8.4-10.2); Carbon Dioxide 21 mmol/L (22-29); Chloride 109 mmol/L (96-108); Creatinine Clr Calc Pharmacy 40.6; Estimated Glomerular Filt Rate 51; Potassium 4.1 mmol/L (3.3-5.1); Sodium 143 mmol/L (135-145)
--- NOTE | 2024-12-07 08:37 | P.PNIM_ITS ---
Subjective Subjective Date of Service: 12/07/24 Interval History: Met with pt's family and son and invoking HCP given advanced dementia with significant deconditioing GOC discusssion being held -spent >60 mins combined in the AM and PM Physical Exam 2 Exam: Exam: General: AOx2, no acute distress, however HCP invoked, unable to make decisions Resp: CTA bilaterally CVS: S1, S2, RRR GI: +BS, NT, no distention Skin: Warm, dry Neuro: Motor grossly intact bilaterally, b/l UE & LE tremor Vital Signs: Vital Signs: Last Vital Signs Temp 97.9 F 12/07/24 08:32 Pulse 66 12/07/24 08:32 Resp 12 12/07/24 08:32 BP 111/65 12/07/24 08:32 Pulse Ox 99 12/07/24 08:32 O2 Del Method Room Air 12/07/24 08:32 BMI result Body Mass Index 19.8 Objective Data Active Medications Acetaminophen (Acetaminophen 325 Mg Tablet) 650 mg PO Q6H PRN PRN Reason: Pain, Mild 1-3,fever,headache Albuterol/Ipratropium (Albuterol/Iprat 2.5/0.5mg 3 Ml Ampul.Neb) 3 ml INHALE Q4H PRN PRN Reason: Shortness of Breath/Wheezing Calcium Carbonate (Calcium Carbonate 750 Mg Tab.Chew) 750 mg PO Q4H PRN PRN Reason: Heartburn Cyanocobalamin (Cyanocobalamin (Vitamin B-12) 500 Mcg Tablet) 500 mcg PO DAILY [facility] Last Admin: 12/07/24 08:11 Dose: 500 mcg Documented By: JESSIE Donepezil HCl (Donepezil Hcl 10 Mg Tablet) 10 mg PO BEDTIME [facility] Last Admin: 12/06/24 21:55 Dose: 10 mg Documented By: TUAN Folic Acid (Folic Acid 1 Mg Tablet) 1 mg PO DAILY [facility] Last Admin: 12/07/24 08:11 Dose: 1 mg Documented By: JESSIE Heparin Sodium (Porcine) (Heparin Sodium,Porcine 5,000 Unit/Ml Vial) 5,000 unit SUBCUT Q12H [facility] Last Admin: 12/07/24 07:38 Dose: 5,000 unit Documented By: JESSIE Lactated Ringer's (Lr) 1,000 mls @ 125 mls/hr IVCONT .Q8H [facility] Last Admin: 12/07/24 04:05 Dose: 125 mls/hr Documented By: ELIS Magnesium Hydroxide (Milk Of Magnesia 30 Ml Oral.Susp) 30 ml PO DAILY PRN PRN Reason: Constipation Melatonin (Melatonin 3 Mg Tablet) 6 mg PO BEDTIME PRN PRN Reason: Insomnia Memantine (Memantine Hcl 5 Mg Tablet) 5 mg PO DAILY [facility] Last Admin: 12/07/24 08:11 Dose: 5 mg Documented By: JESSIE Omeprazole (Omeprazole 20 Mg Capsule.Dr) 20 mg PO BID@0630,1630 [facility] Last Admin: 12/07/24 05:54 Dose: 20 mg Documented By: ELIS Ondansetron HCl (Ondansetron Hcl 4 Mg/2 Ml Vial) 4 mg IVPUSH Q8H PRN PRN Reason: Nausea and Vomiting Polyethylene Glycol (Polyethylene Glycol 3350 17 Gm Powd.Pack) 17 gm PO DAILY PRN PRN Reason: Constipation Senna (Sennosides 8.6 Mg Tablet) 17.2 mg PO BEDTIME [facility] Last Admin: 12/06/24 20:08 Dose: 17.2 mg Documented By: TUAN Sodium Chloride (0.9 % Sodium Chloride Flush 3 Ml Syringe) 3 ml IVFLUSH QSHIFT [facility] Last Admin: 12/07/24 07:39 Dose: Not Given Documented By: JESSIE Non-Admin Reason: IV Running Labs 12/07/24 06:46 12/07/24 06:46 Labs: Laboratory Results - last 24 hr 12/06/24 12/06/24 12/06/24 16:07 16:34 18:42 MCV 89.5 MCH 30.3 MCHC 33.9 RDW 12.9 Plt Count 381 MPV 10.1 Immature Gran % (Auto) 0.3 Neut % (Auto) 85.4 H Lymph % (Auto) 6.2 L [place] % (Auto) 7.9 Eos % (Auto) 0.0 Baso % (Auto) 0.2 Lymph # (Auto) 0.8 L [place] # (Auto) 1.0 Eos # (Auto) 0.0 Baso # (Auto) 0.0 Abs Immat Gran (auto) 0.04 H Absolute Neuts (auto) 10.7 H Absolute Nucleated RBC 0.000 Nucleated RBC % (auto) 0.0 Hold Purple Top SEE NOTE PT 11.7 Whole Blood PT 13.3 INR 1.0 Whole Blood INR 1.1 APTT 27.6 Anion Gap 16 Estim Creat Clear Calc 32.3 Estimated GFR 39 Random Glucose 111 Lactic Acid Calcium 9.8 Magnesium 1.9 Total Bilirubin 0.9 Direct Bilirubin 0.4 AST 81 H ALT 24 Alkaline Phosphatase 89 Total Creatine Kinase 4044 H Troponin I High Sens 55.5 H 63.0 H NT-Pro-B Natriuret Pep 1777.2 H Total Protein 7.0 Albumin 4.3 Triglycerides 63 Cholesterol 131 LDL Cholesterol, Calc 72 HDL Cholesterol 47 TSH 0.72 Urine Color Urine Appearance Urine pH Ur Specific Oxly Urine Protein Urine Glucose (UA) Urine Ketones Urine Blood Urine Nitrite Ur Leukocyte Esterase Urine RBC Urine WBC Ur Squamous Epith Cells Urine Bacteria Hyaline Casts 12/06/24 12/06/24 12/07/24 20:53 23:53 06:46 MCV 90.5 MCH 30.1 MCHC 33.2 RDW 13.0 Plt Count 339 MPV 10.1 Immature Gran % (Auto) 0.2 Neut % (Auto) 71.4 Lymph % (Auto) 19.0 L [place] % (Auto) 8.4 Eos % (Auto) 0.2 Baso % (Auto) 0.8 Lymph # (Auto) 1.7 [place] # (Auto) 0.7 Eos # (Auto) 0.0 Baso # (Auto) 0.1 Abs Immat Gran (auto) 0.02 Absolute Neuts (auto) 6.3 Absolute Nucleated RBC 0.000 Nucleated RBC % (auto) 0.0 Hold Purple Top PT Whole Blood PT INR Whole Blood INR APTT Anion Gap 17 Estim Creat Clear Calc 40.6 Estimated GFR 51 Random Glucose 69 Lactic Acid 1.1 Calcium 8.9 D Magnesium Total Bilirubin Direct Bilirubin AST ALT Alkaline Phosphatase Total Creatine Kinase 3376 H 3068 H Troponin I High Sens NT-Pro-B Natriuret Pep Total Protein Albumin Triglycerides Cholesterol LDL Cholesterol, Calc HDL Cholesterol TSH Urine Color Yellow Urine Appearance Clear Urine pH 5.5 Ur Specific Oxly >= 1.030 H Urine Protein Trace Urine Glucose (UA) Negative Urine Ketones 15 Urine Blood Moderate (2+) H Urine Nitrite Negative Ur Leukocyte Esterase Negative Urine RBC 0-2 Urine WBC 0-5 Ur Squamous Epith Cells 0-2 Urine Bacteria None Seen Hyaline Casts 3-5 Assessment and Plan (1) Rhabdomyolysis: Status: Acute Plan 74-year-old male with past medical history hyperlipidemia, hypertension, dementia on donepezil and memantine, GERD, essential tremor, wt loss BIBA after an unwitnessed fall with unknown downtime leading to IAN 2/2 rhabdo and AFTT Fall in elderly pt with known advanced Alzhemiers - cont home meds Chronic severe deconditioning -PT OT - will need STR Frail and cachetic appearing - Nutrition supplementation Sepsis deemed less likely, trauma workup this far -ve,Cardiogenic and neurological causes thus far -ve TTE result awaiting PT OT recommending STR HCP invoked 2/2 advanced dementia unwitnessed fall with unknown downtime leading to IAN 2/2 rhabdo IAN - 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 Vascular dementia Fall , asp precautions Dementia precautions Nutrition consult GERD Cont home Omez I've spend >60 mins conversing with pt and his family at bedside in AM and in the afternoon with son (HCP) they are deciding on GOC They all agree he is unlikely to manage ADLs independently and will need STR after DC CM will initiate looking for STR for the pt Total time managing care of this patient today: 65 minutes. Quality Stroke Does the patient have a stroke diagnosis?: No Reason for No Anti-thrombotic by Day Two: N/A - Med Ordered VTE Prior VTE?: No VTE Risk Level:: Medical - moderate - high VTE Device Contraindication: N/A - Device Ordered VTE Drug Contraindication: N/A - Med Ordered
--- NOTE | 2024-12-07 09:10 | HO.NURTONUR ---
PER MD report: 74-year-old male with past medical history hyperlipidemia, hypertension, dementia on donepezil and memantine, GERD, essential tremor (1st appointment with the Neurology is next week), weight loss currently living alone appearance to fall last evening while watching the baseball game. Patient remembers getting into bed and then having to get up to use the bathroom and was not using a assistive device and tripped over his dog. Patient denies any hit to the head, loss of consciousness or dizziness but fell to the floor and was unable to get himself up. Patient denies history of diabetes or hypoglycemia. Patient does have an emergency device but did not have the device on his person and no cell phone. Patient remained on the floor until the next day when a relative checked in on him and because the apartment was locked, called 911 and 911 was able to get in through the window and found patient on the floor. Workup in the ED noted evidence of IAN with rhabdomyolysis with an elevated CK level of 3376. Patient currently alert and orientated x3 appears frail but denies any previous falls or syncopal episodes in the past. Patient's son present in the ED and is aware that patient's goal is to remain home living alone but there are improvements that could be made in the home setting to prevent falls including removal of throw rugs. Patient does use meals on wheels twice a day. Patient attempts to cook in the evening but there is concern regarding patient's overall ability with noted BMI 19.8. Head and neck CTA negative for any significant stenosis and no opacification of the left transverse sinus seen but presence of venous sinus thrombosis is not ruled in or out per radiologist. Head CT negative for acute intracranial hemorrhage or acute brain abnormality. Chest x-ray negative for any acute findings including pneumonia, pulmonary edema or pleural effusion. Pelvis x-ray negative for fracture. 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 BNP also elevated but pt presents euvolemic and no murmur on exam. RN addition: Alert but pleasantly confused, unsure what day it is and not sure why he is here. Needs redirecting. No pain. High fall risk Male purewick in place IV: right forearm, LR running 125mL/hr Takes meds whole with water Vitals have been stable this morning
--- NOTE | 2024-12-07 10:50 | P.CONNP_ITS ---
History of Present Illness Reason for Consult Consult date: 12/07/24 Chief Complaint Chief complaint: Rhabdomyolysis History of Present Illness Narrative: 74 y/o male with HLD, HTN, dementia, GERD, tremor, weight loss, lives alone. 12/05 presented after falling at home, was down and unable to get up for most of the night. Nephrology consulted for IAN. 02/09/24 creatinine 1.23 12/06/24 creatinine 1.72 12/07/24 creatinine 1.37 CK 4,000 on arrival, 3,000 today. Recieved 2L IVF boluses and 125ml/hr continuous IVF. lisinopril and hctz held. UOP 600ml/24 horus UA bland had CTA with contrast on 12/06 Review of Systems Review of Systems Yes all other systems are reviewed and are negative [facility], [facility] Past Medical History Medical History Weakness Weight loss Essential tremor Dementia Hyperlipemia HTN (hypertension) Family History Family History Maternal Grandmother Rectal cancer Surgical History Surgical History History of left inguinal hernia repair (09/01/19) History of umbilical hernia repair (09/01/19) History of arthroplasty of right knee (06/29/16) 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) History of arthroplasty of left knee History of total right knee replacement (TKR) Social History Social History Household Members: None Housing: House Do you presently have visiting nurse or other home services: Yes (meals on wheels) Alcohol intake: never Patient Tobacco Use Status: Never used Tobacco Travel History Ebola Risk: Travel/Contact With Anyone From Affected Area/s: No Has Patient Experienced Ebola Symptoms: No Meds Allergies Allergy/AdvReac Type Severity Reaction Status Date / Time acetaminophen (From Percocet) AdvReac Stomach Verified 12/06/24 15:41 Upset oxycodone (From Percocet) AdvReac Stomach Verified 12/06/24 15:41 Upset Active Medications: Current Medications Acetaminophen (Acetaminophen 325 Mg Tablet) 650 mg PO Q6H PRN PRN Reason: Pain, Mild 1-3,fever,headache Albuterol/Ipratropium (Albuterol/Iprat 2.5/0.5mg 3 Ml Ampul.Neb) 3 ml INHALE Q4H PRN PRN Reason: Shortness of Breath/Wheezing Calcium Carbonate (Calcium Carbonate 750 Mg Tab.Chew) 750 mg PO Q4H PRN PRN Reason: Heartburn Cyanocobalamin (Cyanocobalamin (Vitamin B-12) 500 Mcg Tablet) 500 mcg PO DAILY [facility] Last Admin: 12/07/24 08:11 Dose: 500 mcg Donepezil HCl (Donepezil Hcl 10 Mg Tablet) 10 mg PO BEDTIME [facility] Last Admin: 12/06/24 21:55 Dose: 10 mg Folic Acid (Folic Acid 1 Mg Tablet) 1 mg PO DAILY [facility] Last Admin: 12/07/24 08:11 Dose: 1 mg Heparin Sodium (Porcine) (Heparin Sodium,Porcine 5,000 Unit/Ml Vial) 5,000 unit SUBCUT Q12H [facility] Last Admin: 12/07/24 07:38 Dose: 5,000 unit Lactated Ringer's (Lr) 1,000 mls @ 125 mls/hr IVCONT .Q8H [facility] Last Admin: 12/07/24 04:05 Dose: 125 mls/hr Magnesium Hydroxide (Milk Of Magnesia 30 Ml Oral.Susp) 30 ml PO DAILY PRN PRN Reason: Constipation Melatonin (Melatonin 3 Mg Tablet) 6 mg PO BEDTIME PRN PRN Reason: Insomnia Memantine (Memantine Hcl 5 Mg Tablet) 5 mg PO DAILY [facility] Last Admin: 12/07/24 08:11 Dose: 5 mg Omeprazole (Omeprazole 20 Mg Capsule.Dr) 20 mg PO BID@0630,1630 [facility] Last Admin: 12/07/24 05:54 Dose: 20 mg Ondansetron HCl (Ondansetron Hcl 4 Mg/2 Ml Vial) 4 mg IVPUSH Q8H PRN PRN Reason: Nausea and Vomiting Polyethylene Glycol (Polyethylene Glycol 3350 17 Gm Powd.Pack) 17 gm PO DAILY PRN PRN Reason: Constipation Senna (Sennosides 8.6 Mg Tablet) 17.2 mg PO BEDTIME [facility] Last Admin: 12/06/24 20:08 Dose: 17.2 mg Sodium Chloride (0.9 % Sodium Chloride Flush 3 Ml Syringe) 3 ml IVFLUSH QSHIFT [facility] Last Admin: 12/07/24 07:39 Dose: Not Given Home Medications ?Medication ?Instructions ?Recorded ?Confirmed ?Last Taken ?Type atorvastatin 20 mg tablet 1 tab PO DAILY 01/24/2211/0912/05/24 History hydrochlorothiazide 12.5 mg tablet 1 tab PO DAILY 01/0712/06/24 12/05/24 History lisinopril 30 mg tablet 1 tab PO DAILY 01/24/2211/0912/05/24 History omeprazole 20 mg capsule,delayed 1 cap PO BID 01/24/22 12/06/24 12/05/24 History release vitamin B12 0.5 mg-folic acid 1 mg 1 tab PO DAILY 09/0612/06/24 12/05/24 History tablet donepezil 10 mg tablet 10 mg PO BEDTIME 12/06/2412/05/24 History memantine 5 mg tablet 5 mg PO DAILY 12/06/2412/0612/05/24 History Physical Exam Vital Signs: Last Vital Signs Temp 99.5 F 12/07/24 10:09 Pulse 61 12/07/24 10:09 Resp 14 12/07/24 10:09 BP 144/76 H 12/07/24 10:09 Pulse Ox 98 12/07/24 10:09 O2 Del Method Room Air 12/07/24 10:09 BMI result Body Mass Index 19.8 Const General: no acute distress, alert and awake Resp Effort & Inspection: normal respiratory effort Cardio Rate: regular rate Rhythm: regular rhythm Extrem General: No edema Results Lab Results 12/07/24 06:46 12/07/24 06:46 Lab results: Chemistry 12/06/24 12/07/24 16:07 06:46 Sodium 144 143 Potassium 4.5 4.1 Carbon Dioxide 25 21 L BUN 42 H 37 H Creatinine 1.72 H 1.37 Calcium 9.8 8.9 D Hematology 12/06/24 12/07/24 16:07 06:46 WBC 12.6 H 8.8 Hgb 12.4 L 10.8 L Plt Count 381 339 Urinalysis 12/06/24 20:53 Urine Color Yellow Urine Appearance Clear Urine pH 5.5 Ur Specific Tracy >= 1.030 H Urine Protein Trace Urine Glucose (UA) Negative Urine Ketones 15 Urine Blood Moderate (2+) H Urine Nitrite Negative Ur Leukocyte Esterase Negative Urine RBC 0-2 Urine WBC 0-5 Ur Squamous Epith Cells 0-2 Hyaline Casts 3-5 Assessment and Plan (1) IAN (acute kidney injury): Status: Acute Plan IAN likely secondary to combination of hypovolemia in setting of lisinopril and diuretic use in combination with mild rhabdomyolysis. renal funciton is improving with fluids recommend continuing IVF, titrate to urine output of 150mL/hr recommend continuing to hold lisinopril until renal function normalizes and remains stable avoid nephrotoxins avoid precipitous drops in blood pressure continue supportive care Discussed with Dr Dewey. Procedures Date of Service Date of Service: 12/07/24
--- NOTE | 2024-12-07 15:40 | MHC.CM.PN ---
met with pt and familypt and ot [id number] str familys first choice is [facility] a family member works there a finacial rferral also made
--- NOTE | 2024-12-07 15:40 | MHC.CLN ---
NUTRITION DIET RX REGULAR. ENSURE BID TO IMPROVE NUTRITIONAL INTAKE. SUPPLEMENT PROVIDES 700 KCALS, 40 G PROTEIN. WEIGHT IS 84% OF IBW. WEIGHT LOSS TREND X 2 YEARS -8%. DIET LIBERALIZED FROM CARDIAC TO REGULAR TO PROMOTE NUTRITIONAL INTAKE. FOLLOW FOR PO INTAKE. SEE CLINICAL NUTRITION ASSESSMENT 12/07/24.
[2024-12-07] MEDS: 0.9 % Sodium Chloride Flush 3 ML SYRINGE IVFLUSH (19:09)
--- NOTE | 2024-12-07 20:07 | PC.NURSE ---
Around 1744, pt agitated, pulled out his IV, trying to get up out of bed, being combative with staff. [place] text to Dr. Gilliland, 25 mg PO seroquel ordered and administered at 1757. Will continue to monitor.
--- NOTE | 2024-12-07 20:09 | PC.NURSE ---
Around 1945, pt agitated, trying to hit and kick bedside sitter. [place] text to Dr. Syed, BHANU Yarbrough ordered and administered at 2002, will continue to monitor.
[2024-12-08 03:19] VITALS: BP 123/58; PULSE 63; RESP 18; TEMP 36.6; O2SAT 97
[2024-12-08] MEDS: Lactated Ringers 1,000 ML 125 ML IVCONT (04:53)
[2024-12-08 07:13] LABS: MANUAL DIFF FLAG NO
[2024-12-08 07:14] VITALS: BP 137/64; PULSE 52; RESP 18; TEMP 37.1; O2SAT 98
[2024-12-08 07:19] LABS: Hematocrit 29.7 % (42.0-52.0); Hemoglobin 10.1 g/dl (14.0-18.0); Imm Gran Abs Auto 0.02 X10*3/uL (0.00-0.03); Imm Gran Pct Auto 0.3 % (0.0-0.4); Lymphocytes Absolute Auto 1.5 X10*3/uL (1.2-4.9); Mean Corpuscular HGB Conc 34.0 g/dl (31.0-36.0); Mean Corpuscular Hemoglobin 30.1 pg (27.0-33.0); Mean Corpuscular Volume 88.7 fL (80.0-98.0); NRBC Abs Auto 0.000 X10*3/uL (0.0-0.012); NRBC Pct Auto 0.0 /100WBC (0.0-0.2); Platelet Count 296 X10*3/uL (160-400); Red Blood Count 3.35 X10*6/uL (4.60-5.80); White Blood Count 6.2 X10*3/uL (4.8-10.8)
--- NOTE | 2024-12-08 07:27 | P.PNIM_ITS ---
Subjective Subjective Date of Service: 12/08/24 Interval History: Patient medically optimized Awaiting rehab placement which will likely happen tomorrow Significantly very very confused today, likely delirium secondary to advanced dementia Physical Exam 2 Exam: Exam: General: AOx0, very confused today compared to yesterday, likely advancing delirium in the setting of hospitalization, however HCP invoked, unable to make decisions Resp: CTA bilaterally CVS: S1, S2, RRR GI: +BS, NT, no distention Skin: Warm, dry Neuro: Motor grossly intact bilaterally, b/l UE & LE tremor Vital Signs: Vital Signs: Last Vital Signs Temp 98.7 F 12/08/24 07:14 Pulse 52 12/08/24 07:14 Resp 18 12/08/24 07:14 BP 137/64 12/08/24 07:14 Pulse Ox 98 12/08/24 07:14 O2 Del Method Room Air 12/08/24 03:19 BMI result Body Mass Index 19.8 Objective Data Active Medications Acetaminophen (Acetaminophen 325 Mg Tablet) 650 mg PO Q6H PRN PRN Reason: Pain, Mild 1-3,fever,headache Albuterol/Ipratropium (Albuterol/Iprat 2.5/0.5mg 3 Ml Ampul.Neb) 3 ml INHALE Q4H PRN PRN Reason: Shortness of Breath/Wheezing Calcium Carbonate (Calcium Carbonate 750 Mg Tab.Chew) 750 mg PO Q4H PRN PRN Reason: Heartburn Cyanocobalamin (Cyanocobalamin (Vitamin B-12) 500 Mcg Tablet) 500 mcg PO DAILY [facility] Last Admin: 12/07/24 08:11 Dose: 500 mcg Documented By: JESSIE Donepezil HCl (Donepezil Hcl 10 Mg Tablet) 10 mg PO BEDTIME [facility] On Hold: 12/07/24 19:34 Last Admin: 12/06/24 21:55 Dose: 10 mg Folic Acid (Folic Acid 1 Mg Tablet) 1 mg PO DAILY [facility] Last Admin: 12/07/24 08:11 Dose: 1 mg Documented By: JESSIE Heparin Sodium (Porcine) (Heparin Sodium,Porcine 5,000 Unit/Ml Vial) 5,000 unit SUBCUT Q12H [facility] Last Admin: 12/08/24 06:16 Dose: Not Given Documented By: DAVID Non-Admin Reason: Patient Refused Hydroxyzine HCl (Hydroxyzine Hcl 10 Mg Tablet) 10 mg PO TID [facility] Last Admin: 12/07/24 19:37 Dose: Not Given Documented By: DAVID Non-Admin Reason: Patient Refused Lactated Ringer's (Lr) 1,000 mls @ 125 mls/hr IVCONT .Q8H [facility] Last Admin: 12/08/24 04:53 Dose: 125 mls/hr Documented By: DAVID Magnesium Hydroxide (Milk Of Magnesia 30 Ml Oral.Susp) 30 ml PO DAILY PRN PRN Reason: Constipation Melatonin (Melatonin 3 Mg Tablet) 6 mg PO BEDTIME PRN PRN Reason: Insomnia Memantine (Memantine Hcl 5 Mg Tablet) 5 mg PO DAILY [facility] Last Admin: 12/07/24 08:11 Dose: 5 mg Documented By: JESSIE Omeprazole (Omeprazole 20 Mg Capsule.Dr) 20 mg PO BID@0630,1630 [facility] Last Admin: 12/08/24 06:16 Dose: Not Given Documented By: DAVID Non-Admin Reason: Patient Refused Ondansetron HCl (Ondansetron Hcl 4 Mg/2 Ml Vial) 4 mg IVPUSH Q8H PRN PRN Reason: Nausea and Vomiting Polyethylene Glycol (Polyethylene Glycol 3350 17 Gm Powd.Pack) 17 gm PO DAILY PRN PRN Reason: Constipation Senna (Sennosides 8.6 Mg Tablet) 17.2 mg PO BEDTIME [facility] Last Admin: 12/07/24 19:37 Dose: Not Given Documented By: DAVID Non-Admin Reason: Patient Refused Sodium Chloride (0.9 % Sodium Chloride Flush 3 Ml Syringe) 3 ml IVFLUSH QSHIFT [facility] Last Admin: 12/07/24 19:09 Dose: 3 ml Documented By: DAVID Labs 12/08/24 05:54 12/08/24 05:54 Labs: Laboratory Results - last 24 hr 12/07/24 12/08/24 06:46 05:54 MCV 88.7 MCH 30.1 MCHC 34.0 RDW 12.9 Plt Count 296 MPV 10.5 Immature Gran % (Auto) 0.3 Neut % (Auto) 62.5 Lymph % (Auto) 24.7 Yancey % (Auto) 11.2 H Eos % (Auto) 0.5 Baso % (Auto) 0.8 Lymph # (Auto) 1.5 Yancey # (Auto) 0.7 Eos # (Auto) 0.0 Baso # (Auto) 0.1 Abs Immat Gran (auto) 0.02 Absolute Neuts (auto) 3.9 Absolute Nucleated RBC 0.000 Nucleated RBC % (auto) 0.0 Anion Gap 17 Estim Creat Clear Calc 40.6 Estimated GFR 51 Random Glucose 69 Calcium 8.9 D Total Creatine Kinase 3068 H Assessment and Plan (1) Rhabdomyolysis: Status: Acute Plan 74-year-old male with past medical history hyperlipidemia, hypertension, dementia on donepezil and memantine, GERD, essential tremor, wt loss BIBA after an unwitnessed fall with unknown downtime leading to IAN 2/2 rhabdo and AFTT Patient continues to be very delirious secondary to advanced dementia in the hospitalization, which is expected Have initiated Seroquel, Valium Fall in elderly pt with known advanced Alzhemiers - cont home meds Chronic severe deconditioning -PT OT - will need STR rifle case repairer working on placement, hence the current ongoing hospitalization, no safe discharge planning Frail and cachetic appearing - Nutrition supplementation Sepsis deemed less likely, trauma workup this far -ve,Cardiogenic and neurological causes thus far -ve TTE unremarkable PT OT recommending STR will need STR rifle case repairer working on placement, hence the current ongoing hospitalization, no safe discharge planning HCP invoked 2/2 advanced dementia unwitnessed fall with unknown downtime leading to IAN 2/2 rhabdo IAN - nephro consulted by Night [employer] Encourage p.o. intake No need to trend CPK given downtrending labs Wt loss - 2/2 AFTT Essential tremor ? Vascular dementia Fall , asp precautions Dementia precautions Nutrition consult GERD Cont home Omez Goals of care ongoing CM will initiate looking for STR for the pt hence the Total time managing care of this patient today: 65 minutes. Quality Stroke Does the patient have a stroke diagnosis?: No Reason for No Anti-thrombotic by Day Two: N/A - Med Ordered VTE Prior VTE?: No VTE Risk Level:: Medical - moderate - high VTE Device Contraindication: N/A - Device Ordered VTE Drug Contraindication: N/A - Med Ordered
[2024-12-08 07:40] LABS: Alanine Aminotransferase 19 U/L (0-40); Albumin Level 2.9 g/dL (3.5-5.0); Alkaline Phosphatase 61 U/L (39-117); Anion Gap 13 (12-20); Aspartate Amino Transferase 77 U/L (5-37); Blood Urea Nitrogen 26 mg/dL (9-16); Calcium 8.4 mg/dL (8.4-10.2); Carbon Dioxide 24 mmol/L (22-29); Chloride 109 mmol/L (96-108); Creatinine Clr Calc Pharmacy 43.5; Estimated Glomerular Filt Rate 55; Potassium 3.7 mmol/L (3.3-5.1); Sodium 142 mmol/L (135-145); Total Protein 5.3 g/dL (6.5-8.0)
--- NOTE | 2024-12-08 09:51 | P.CNNE_ITS ---
History of Present Illness Data of Consult Service Date: 12/08/24 Primary Care Provider: Mark Orozco MD [facility] Reason for consult: Rhabdomyolysis 74 years old man was brought to hospital after he was found on the floor probably there for many hours. He carried diagnosis of dementia and was seeing Dr. Cowan and was going to have his first visit with a neurlogist, Dr. Botello, in a few days. He was not known to have seizure disorder. There was no recent cold or flu-like illness. There was no significant physical injury that was noted. Apparently it was a certain that he might have tripped because of dark passing in front of him but for some reason he was not able to get up. Prior to that, he was able to walk around without any assistance. At this time he was not in any distress. Review of Systems 2 Review of Systems: No recent cold or flu-like illness PMFSH Past Medical History Medical History (Updated 12/08/24 @ 09:56 by Cornelius Chicas MD) Weakness Weight loss Essential tremor Dementia Hyperlipemia HTN (hypertension) Family History Family History Maternal Grandmother Rectal cancer Surgical History Surgical History History of left inguinal hernia repair (09/01/19) History of umbilical hernia repair (09/01/19) History of arthroplasty of right knee (06/29/16) 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) History of arthroplasty of left knee History of total right knee replacement (TKR) Social History Social History Household Members: None Housing: House Do you presently have visiting nurse or other home services: Yes (meals on wheels) Alcohol intake: never Comment: 1-1 sitter Patient Tobacco Use Status: Never used Tobacco service: No Travel History Ebola Risk: Travel/Contact With Anyone From Affected Area/s: No Has Patient Experienced Ebola Symptoms: No Meds Allergies Allergy/AdvReac Type Severity Reaction Status Date / Time acetaminophen (From Percocet) AdvReac Stomach Verified 12/06/24 15:41 Upset oxycodone (From Percocet) AdvReac Stomach Verified 12/06/24 15:41 Upset Active Medications: Current Medications Acetaminophen (Acetaminophen 325 Mg Tablet) 650 mg PO Q6H PRN PRN Reason: Pain, Mild 1-3,fever,headache Albuterol/Ipratropium (Albuterol/Iprat 2.5/0.5mg 3 Ml Ampul.Neb) 3 ml INHALE Q4H PRN PRN Reason: Shortness of Breath/Wheezing Calcium Carbonate (Calcium Carbonate 750 Mg Tab.Chew) 750 mg PO Q4H PRN PRN Reason: Heartburn Cyanocobalamin (Cyanocobalamin (Vitamin B-12) 500 Mcg Tablet) 500 mcg PO DAILY [facility] Last Admin: 12/08/24 08:14 Dose: Not Given Donepezil HCl (Donepezil Hcl 10 Mg Tablet) 10 mg PO BEDTIME [facility] On Hold: 12/07/24 19:34 Last Admin: 12/06/24 21:55 Dose: 10 mg Folic Acid (Folic Acid 1 Mg Tablet) 1 mg PO DAILY [facility] Last Admin: 12/08/24 08:14 Dose: Not Given Heparin Sodium (Porcine) (Heparin Sodium,Porcine 5,000 Unit/Ml Vial) 5,000 unit SUBCUT Q12H [facility] Last Admin: 12/08/24 06:16 Dose: Not Given Hydroxyzine HCl (Hydroxyzine Hcl 10 Mg Tablet) 10 mg PO TID [facility] Last Admin: 12/08/24 08:15 Dose: Not Given Magnesium Hydroxide (Milk Of Magnesia 30 Ml Oral.Susp) 30 ml PO DAILY PRN PRN Reason: Constipation Melatonin (Melatonin 3 Mg Tablet) 6 mg PO BEDTIME PRN PRN Reason: Insomnia Memantine (Memantine Hcl 5 Mg Tablet) 5 mg PO DAILY [facility] Last Admin: 12/08/24 08:15 Dose: Not Given Omeprazole (Omeprazole 20 Mg Capsule.Dr) 20 mg PO BID@0630,1630 [facility] Last Admin: 12/08/24 06:16 Dose: Not Given Ondansetron HCl (Ondansetron Hcl 4 Mg/2 Ml Vial) 4 mg IVPUSH Q8H PRN PRN Reason: Nausea and Vomiting Polyethylene Glycol (Polyethylene Glycol 3350 17 Gm Powd.Pack) 17 gm PO DAILY PRN PRN Reason: Constipation Senna (Sennosides 8.6 Mg Tablet) 17.2 mg PO BEDTIME [facility] Last Admin: 12/07/24 19:37 Dose: Not Given Sodium Chloride (0.9 % Sodium Chloride Flush 3 Ml Syringe) 3 ml IVFLUSH QSHIFT [facility] Last Admin: 12/08/24 07:42 Dose: Not Given Home Medications ?Medication ?Instructions ?Recorded ?Confirmed ?Last Taken ?Type atorvastatin 20 mg tablet 1 tab PO DAILY 01/24/2211/0912/05/24 History hydrochlorothiazide 12.5 mg tablet 1 tab PO DAILY 01/0712/06/24 12/05/24 History lisinopril 30 mg tablet 1 tab PO DAILY 01/24/2211/0912/05/24 History omeprazole 20 mg capsule,delayed 1 cap PO BID 01/24/22 12/06/24 12/05/24 History release vitamin B12 0.5 mg-folic acid 1 mg 1 tab PO DAILY 09/0612/06/24 12/05/24 History tablet donepezil 10 mg tablet 10 mg PO BEDTIME 12/06/2412/05/24 History memantine 5 mg tablet 5 mg PO DAILY 12/06/2412/0612/05/24 History Physical Exam 2 Vital Signs: Vital Signs: Last Vital Signs Temp 98.7 F 12/08/24 07:14 Pulse 52 12/08/24 07:14 Resp 18 12/08/24 07:14 BP 137/64 12/08/24 07:14 Pulse Ox 98 12/08/24 07:14 O2 Del Method Room Air 12/08/24 03:19 BMI result Body Mass Index 19.8 Neuro: Other: He is alert and awake with decreased spontaneity and fluency of speech. He is answering simple questions appropriately and followed one-step commands. He did not know where he was and what year this was but he was able to recognize his sister. Face was symmetrical. Visual brown are full. He had difficulty lifting his shoulders. His sister stated that this was a chronic problem. There was no obvious hand weakness or foot or leg weakness. Deep tendon reflexes were trace to absent with flexor plantars. There was no significant abnormal movement. Results Labs 12/08/24 05:54 12/08/24 05:54 Labs: Short CBC 12/08/24 Range/Units 05:54 WBC 6.2 (4.8-10.8) X10*3/uL Hgb 10.1 L (14.0-18.0) g/dl Hct 29.7 L (42.0-52.0) % Plt Count 296 (160-400) X10*3/uL BMP 12/08/24 05:54 Sodium 142 Potassium 3.7 Chloride 109 H Carbon Dioxide 24 BUN 26 H Creatinine 1.28 Calcium 8.4 Liver Function 12/08/24 Range/Units 05:54 Total Bilirubin 0.6 (0.0-1.0) mg/dL AST 77 H (5-37) U/L ALT 19 (0-40) U/L Alkaline Phosphatase 61 (39-117) U/L Albumin 2.9 L (3.5-5.0) g/dL He was known to have sinus bradycardia. Recent EKG was okay. Head CT revealed mild to moderate generalized cerebral atrophy with mild microvascular ischemic changes. Assessment and Plan (1) Dementia: Qualifiers: Dementia type: unspecified type Dementia severity: unspecified severity Dementia behavioral or psychological symptom: without behavioral, psychotic, or mood disturbance or anxiety Qualified Code(s): F03.90 - Unspecified dementia, unspecified severity, without behavioral disturbance, psychotic disturbance, mood disturbance, and anxiety Status: Acute 74 years old man who carried diagnosis of dementia was found on the floor at home not able to get up. Prior to that he was able to walk without difficulty. He was not known to have seizure disorder. His head CT revealed [id number] diffuse cerebral atrophy and some microvascular chronic ischemic type of changes. According to family, he had not seen in her neurologist before. His high CPK level suggested rhabdomyolysis suggesting that he was probably on the floor for awhile. Exact etiology of the whole event is unclear. My recommendation is treat rhabdo but also obtain a noncontrast MRI of brain in an EEG to rule out seizure disorder and define his diagnosis better. Serum B12, folate levels and Lyme serology is also recommended Procedures Date of Service Date of Service: 12/08/24
--- NOTE | 2024-12-08 12:33 | HO.WOUND ---
Wound Consult: Initial 74yr old? [place] [facility] [place] See progress notes and H&P for detailed history.? Wound consult placed for Coccyx.? Patient agreeable to assessment and photo documentation.? Lower back blanchable redness some friction noted and scattered open tissue. Coccyx Etiology: ?Stage 2 Pressure Injury ?Present on Admission Measurements: 1cm x 2cm x 0.1cm Wound Bed: red moist wound bed - with open area and epidermal lifting noted not yet released Drainage / Odor: scant serous fluid noted Edges: ? attached Deanne wound: red pink slow to harley tissue ? No Induration, Fluctuance or Warmth noted Pain: pain reported Goals of Treatment: ? off load pressure and foam dressing to aid in pressure redistribution Recommendations: 1. Turn and Reposition every 2 hours and as needed for patient comfort.? Use pillows or wedges to support off loading positions. 2. Off Load all bony prominences with use of pillows and heel boots if needed.? Apply Preventative foams where needed. ? 3. Monitor for incontinence and moisture control, use barrier creams when needed for prevention and treatment. 4. Provide adequate and supplemental nutrition.? 5. Order low air loss mattress. 6. When applicable maintain blood glucose levels per Providers order. Sacrum? - Off Load Pressure with Q2 hr turns and use of pillows - Routine cleansing.? Apply skin prep allow to dry.? Cover with foam dressing to aid in off loading and protection from friction. Change every 3 days and PRN. Re-consult wound care Nurse for wound deterioration or wound changes.
[2024-12-08 14:14] LABS: Glucose, Whole Blood 102 mg/dL (60-115)
[2024-12-08] MEDS: 0.9 % Sodium Chloride Flush 3 ML SYRINGE IVFLUSH ×2 (14:22→19:32)
[2024-12-08 16:00] VITALS: BP 119/63; PULSE 72; RESP 18; TEMP 37.1; O2SAT 96
[2024-12-08 19:56] VITALS: BP 135/67; PULSE 75; RESP 18; TEMP 36.4; O2SAT 95
[2024-12-09 04:15] VITALS: BP 148/68; PULSE 69; RESP 18; TEMP 36.5; O2SAT 96
[2024-12-09 06:03] LABS: MANUAL DIFF FLAG NO
[2024-12-09 06:22] LABS: Hematocrit 31.4 % (42.0-52.0); Hemoglobin 10.7 g/dl (14.0-18.0); Imm Gran Abs Auto 0.03 X10*3/uL (0.00-0.03); Imm Gran Pct Auto 0.3 % (0.0-0.4); Lymphocytes Absolute Auto 1.5 X10*3/uL (1.2-4.9); Mean Corpuscular HGB Conc 34.1 g/dl (31.0-36.0); Mean Corpuscular Hemoglobin 30.1 pg (27.0-33.0); Mean Corpuscular Volume 88.2 fL (80.0-98.0); NRBC Abs Auto 0.000 X10*3/uL (0.0-0.012); NRBC Pct Auto 0.0 /100WBC (0.0-0.2); Platelet Count 336 X10*3/uL (160-400); Red Blood Count 3.56 X10*6/uL (4.60-5.80); White Blood Count 8.6 X10*3/uL (4.8-10.8)
[2024-12-09 06:30] LABS: Alanine Aminotransferase 32 U/L (0-40); Albumin Level 3.3 g/dL (3.5-5.0); Alkaline Phosphatase 68 U/L (39-117); Anion Gap 13 (12-20); Aspartate Amino Transferase 65 U/L (5-37); Blood Urea Nitrogen 27 mg/dL (9-16); Calcium 8.8 mg/dL (8.4-10.2); Carbon Dioxide 24 mmol/L (22-29); Chloride 108 mmol/L (96-108); Creatinine Clr Calc Pharmacy 45.6; Estimated Glomerular Filt Rate 58; Potassium 3.9 mmol/L (3.3-5.1); Sodium 141 mmol/L (135-145); Total Protein 5.8 g/dL (6.5-8.0)
--- NOTE | 2024-12-09 07:15 | HO.PM.IMPN ---
Subjective Subjective Date of Service: 12/09/24 Physical Exam Vital Signs: Vital Signs: Last Vital Signs Temp 97.7 F 12/09/24 04:15 Pulse 69 12/09/24 04:15 Resp 18 12/09/24 04:15 BP 148/68 H 12/09/24 04:15 Pulse Ox 96 12/09/24 04:15 O2 Del Method Room Air 12/09/24 04:15 BMI result Body Mass Index 19.8 Objective Data Active Medications Acetaminophen (Acetaminophen 325 Mg Tablet) 650 mg PO Q6H PRN PRN Reason: Pain, Mild 1-3,fever,headache Albuterol/Ipratropium (Albuterol/Iprat 2.5/0.5mg 3 Ml Ampul.Neb) 3 ml INHALE Q4H PRN PRN Reason: Shortness of Breath/Wheezing Calcium Carbonate (Calcium Carbonate 750 Mg Tab.Chew) 750 mg PO Q4H PRN PRN Reason: Heartburn Cyanocobalamin (Cyanocobalamin (Vitamin B-12) 500 Mcg Tablet) 500 mcg PO DAILY [facility] Last Admin: 12/08/24 08:14 Dose: Not Given Documented By: HANH Non-Admin Reason: Patient Refused Donepezil HCl (Donepezil Hcl 10 Mg Tablet) 10 mg PO BEDTIME [facility] On Hold: 12/07/24 19:34 Last Admin: 12/06/24 21:55 Dose: 10 mg Folic Acid (Folic Acid 1 Mg Tablet) 1 mg PO DAILY [facility] Last Admin: 12/08/24 08:14 Dose: Not Given Documented By: HANH Non-Admin Reason: Patient Refused Heparin Sodium (Porcine) (Heparin Sodium,Porcine 5,000 Unit/Ml Vial) 5,000 unit SUBCUT Q12H [facility] Last Admin: 12/09/24 06:14 Dose: 5,000 unit Documented By: YOU Hydroxyzine HCl (Hydroxyzine Hcl 10 Mg Tablet) 10 mg PO TID [facility] Last Admin: 12/08/24 19:30 Dose: 10 mg Documented By: YOU Magnesium Hydroxide (Milk Of Magnesia 30 Ml Oral.Susp) 30 ml PO DAILY PRN PRN Reason: Constipation Melatonin (Melatonin 3 Mg Tablet) 6 mg PO BEDTIME PRN PRN Reason: Insomnia Memantine (Memantine Hcl 5 Mg Tablet) 5 mg PO DAILY [facility] Last Admin: 12/08/24 08:15 Dose: Not Given Documented By: HANH Non-Admin Reason: Patient Refused Omeprazole (Omeprazole 20 Mg Claribel.) 20 mg PO BID@0630,1630 [facility] Last Admin: 12/09/24 06:14 Dose: 20 mg Documented By: YOU Ondansetron HCl (Ondansetron Hcl 4 Mg/2 Ml Vial) 4 mg IVPUSH Q8H PRN PRN Reason: Nausea and Vomiting Polyethylene Glycol (Polyethylene Glycol 3350 17 Gm Powd.Pack) 17 gm PO DAILY PRN PRN Reason: Constipation Senna (Sennosides 8.6 Mg Tablet) 17.2 mg PO BEDTIME [facility] Last Admin: 12/08/24 19:30 Dose: 17.2 mg Documented By: YOU Sodium Chloride (0.9 % Sodium Chloride Flush 3 Ml Syringe) 3 ml IVFLUSH QSHIFT [facility] Last Admin: 12/08/24 19:32 Dose: 3 ml Documented By: YOU Labs 12/09/24 05:30 12/09/24 05:30 Labs: Laboratory Results - last 24 hr 12/06/24 12/08/24 12/09/24 16:15 05:54 05:30 MCV 88.7 88.2 MCH 30.1 30.1 MCHC 34.0 34.1 RDW 12.9 12.5 Plt Count 296 336 MPV 10.5 10.5 Immature Gran % (Auto) 0.3 0.3 Neut % (Auto) 62.5 71.1 Lymph % (Auto) 24.7 17.2 L Ashland % (Auto) 11.2 H 9.7 Eos % (Auto) 0.5 1.2 Baso % (Auto) 0.8 0.5 Lymph # (Auto) 1.5 1.5 Ashland # (Auto) 0.7 0.8 Eos # (Auto) 0.0 0.1 Baso # (Auto) 0.1 0.0 Abs Immat Gran (auto) 0.02 0.03 Absolute Neuts (auto) 3.9 6.1 Absolute Nucleated RBC 0.000 0.000 Nucleated RBC % (auto) 0.0 0.0 Anion Gap 13 13 Estim Creat Clear Calc 43.5 45.6 Estimated GFR 55 58 POC Glucose 102 Random Glucose 71 115 Calcium 8.4 8.8 Total Bilirubin 0.6 0.4 AST 77 H 65 H ALT 19 32 Alkaline Phosphatase 61 68 Total Protein 5.3 L 5.8 L Albumin 2.9 L 3.3 L Quality Stroke Does the patient have a stroke diagnosis?: No Reason for No Anti-thrombotic by Day Two: N/A - Med Ordered VTE Prior VTE?: No VTE Risk Level:: Medical - moderate - high VTE Device Contraindication: N/A - Device Ordered VTE Drug Contraindication: N/A - Med Ordered
[2024-12-09] MEDS: 0.9 % Sodium Chloride Flush 3 ML SYRINGE IVFLUSH (07:30)
[2024-12-09 07:55] VITALS: BP 140/72; PULSE 70; RESP 16; TEMP 36.6; O2SAT 98
--- NOTE | 2024-12-09 11:26 | MHC.CM.PN ---
Addendum entered by Padmaja Sheldon 12/09/24 14:15: TRANSPORT BOOKED FOR 1400 HOURS Original Note: PT CLEARED TO DC TODAY, PREFERRED SNF IS OFFERING. CM INFORMED SON, FLORES, OF PENDING DC VIA T/C PT WILL DC TO [facility] TODAY VIA [facility] HERN[facility]NDE[facility]
[2024-12-09 13:05] VITALS: BMI 19.8
--- NOTE | 2024-12-09 13:12 | MHC.CLN ---
F/U DIET RX REGULAR. ENSURE BID TO IMPROVE NUTRITIONAL INTAKE AND PROMOTE WOUND HEALING. SKIN WITH STAGE II PRESSURE INJURY TO SACRUM. SUPPLEMENT PROVIDES 700 KCALS, 40 G PROTEIN. WEIGHT IS 84% OF IBW. WEIGHT LOSS TREND X 2 YEARS -8%. DIET LIBERALIZED FROM CARDIAC TO REGULAR TO PROMOTE NUTRITIONAL INTAKE. FOLLOW FOR PO INTAKE AND SKIN INTEGRITY.
--- NOTE | 2024-12-09 13:56 | P.DS_ITS ---
DS: Providers Provider Date of Service: 12/09/24 Date of admission: 12/06/24 19:06 Date of discharge: 12/09/24 Primary care physician: Mark Orozco MD Consults: 12/06/24 19:48 Consult to Case Management Routine Comment: safety issues at home, dementia, lives alone 12/06/24 19:50 Consult to Nephrology Routine Consulting Provider: [facility] Reason for consultation: IAN,rhabdo Has provider been notified: No 12/07/24 17:19 Consult to Wound Care Routine Reason for consultation: redness to coccyx DS: Diagnosis Discharge Diagnosis (1) Rhabdomyolysis: Status: Acute DS: Summary Hospital Course Hospital Course: 74-year-old male with past medical history hyperlipidemia, hypertension, dementia on donepezil and memantine, GERD, essential tremor, wt loss BIBA after an unwitnessed fall with unknown downtime leading to IAN 2/2 rhabdo and AFTT Sepsis, cardiac, neurological workup initiated and was unremarkable. His fall have been likely attributed to advancing Alzheimer's dementia. For his intermittent agitation/anxiety, we have initiated Atarax with good effect. No other changes in medications have been made during this admission. Healthcare proxy invoked secondary to advanced dementia Patient was intermittently delirious secondary to advanced dementia in the hospitalization. Rhabdomyolysis, IAN-likely in the setting of fall with unknown downtime, was treated with IV fluids with good effect. 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 Fall in elderly pt with known advanced Alzhemiers - cont home meds Chronic severe deconditioning -PT OT - STR Frail and cachetic appearing - Nutrition supplementation, ensure t.i.d. Wt loss - 2/2 AFTT Essential tremor ? Vascular dementia Fall , asp precautions were maintained Dementia precautions were maintained GERD - Cont home Omez Goals of care conversation initiated-patient's family wanted him to be full code at this time Total time managing care of this patient today: 65 minutes. Time spent discussing smoking cessation with patient: more than 10 minutes Time Attestation Discharge Coordination Time (in mins): 56 Quality: Safe Use of Opioids Does Pt have an Active Cancer Diagnosis on the Problem List?: No Quality: Stroke Does the patient have a stroke diagnosis?: No Physical Exam Vital Signs: Vital Signs: Last Vital Signs Temp 97.9 F 12/09/24 07:55 Pulse 70 10/03/25 07:55 Resp 16 12/09/24 07:55 BP 140/72 H 12/09/24 07:55 Pulse Ox 98 12/09/24 07:55 O2 Del Method Room Air 12/09/24 07:55 BMI result Body Mass Index 19.8 DS: Data Data Completed and Pending Labs on day of discharge: Laboratory Results - last 24 hr 12/06/24 12/09/24 16:15 05:30 WBC 8.6 RBC 3.56 L Hgb 10.7 L Hct 31.4 L MCV 88.2 MCH 30.1 MCHC 34.1 RDW 12.5 Plt Count 336 MPV 10.5 Immature Gran % (Auto) 0.3 Neut % (Auto) 71.1 Lymph % (Auto) 17.2 L Elbert % (Auto) 9.7 Eos % (Auto) 1.2 Baso % (Auto) 0.5 Lymph # (Auto) 1.5 Elbert # (Auto) 0.8 Eos # (Auto) 0.1 Baso # (Auto) 0.0 Abs Immat Gran (auto) 0.03 Absolute Neuts (auto) 6.1 Absolute Nucleated RBC 0.000 Nucleated RBC % (auto) 0.0 Sodium 141 Potassium 3.9 Chloride 108 Carbon Dioxide 24 Anion Gap 13 BUN 27 H Creatinine 1.22 Estim Creat Clear Calc 45.6 Estimated GFR 58 POC Glucose 102 Random Glucose 115 Calcium 8.8 Total Bilirubin 0.4 AST 65 H ALT 32 Alkaline Phosphatase 68 Total Protein 5.8 L Albumin 3.3 L Discharge Plan Discharge Anticipated Discharge Date/Time: 12/09/24 13:51 Patient Disposition: Xfer SNF Discharge Diagnosis: Severe advanced Alzheimer's dementia --> fall leading to rhabdomyolysis, IAN, AFTT Referrals: [facility] [Outside] - 1 Week Mark Orzoco MD [Primary Care Provider, Internal Medicine] - 1 Week Discharge Medications: New hydroxyzine HCl 10 mg Tablet 10 mg PO TID 10 Days Qty: 30 3RF Continued atorvastatin 20 mg tablet 1 tab PO DAILY lisinopril 30 mg tablet 1 tab PO DAILY omeprazole 20 mg capsule,delayed release(DR/EC) 1 cap PO BID hydrochlorothiazide 12.5 mg tablet 1 tab PO DAILY donepezil 10 mg tablet 10 mg PO BEDTIME memantine 5 mg tablet 5 mg PO DAILY vitamin N14-ycmdd acid 0.5-1 mg tablet 1 tab PO DAILY Discharge Orders: Discharge Order (Routine); Ordered 12/09/24 Ordered By: Ivelisse Gilliland Diet: Advance to usual diet Activity on Discharge: As tolerated Stand Alone Forms: Patient Portal Discharge page Print Language: Latvian Care Plan Goals: Achieving ADLs to as close to his prior baseline as possible, PTOT hence requiring SDR Increasing his protein intake to prevent muscle atrophy secondary to a FTT IAN has resolved, but would check if he is not eating or drinking in a week or so can be done at rehab Health Concerns: See above Plan of Treatment: Atarax has been added to his home regimen for his anxiety Assessment: See above Patient Instructions: Fall Prevention for Older Adults (DC)
[2024-12-09 14:00] VITALS: BP 156/71; PULSE 89; RESP 16; TEMP 36; O2SAT 97
== END 2024-12-09 14:07 | disposition skilled nursing facility (03) | DRG 558 ==
LOC: HO.ED 16:44 → HO.EDOVER 19:33 → HO.S3 12-07 08:42
PROVIDERS: Nurse Practitioner Family; Physician Assistant Medical; Admitting Provider Internal Medicine; Emergency Provider Emergency Medicine; PCP Internal Medicine; Visit Provider Student in an Organized Health Care Education/Training Program
DX: M62.82 Rhabdomyolysis (principal); N17.9 Acute kidney failure, unspecified; F05 Delirium due to known physiological condition; Z68.1 Body mass index [BMI] 19.9 or less, adult; R64 Cachexia; I10 Essential (primary) hypertension; E78.5 Hyperlipidemia, unspecified; R53.81 Other malaise; K21.9 Gastro-esophageal reflux disease without esophagitis; G25.0 Essential tremor; F01.50 Vascular dementia, unspecified severity, without behavioral disturbance, psychotic disturbance, mood disturbance, and anxiety; G30.9 Alzheimer's disease, unspecified; F02.80 Dementia in other diseases classified elsewhere, unspecified severity, without behavioral disturbance, psychotic disturbance, mood disturbance, and anxiety; W19.XXXA Unspecified fall, initial encounter; E86.1 Hypovolemia; R62.7 Adult failure to thrive; Z79.899 Other long term (current) drug therapy
CPT/HCPCS: 36415; 70450; 70496; 70498; 71045; 72170; 80048; 80053; 80061; 80076; 81001; 81003; 82550; 82947; 83605; 83735; 83880; 84443; 84484; 85025; 85610; 85730; 93005; 93306; 97162; 97166; 97530; 99285; J1630; J1644; J7120; Q9957; Q9967

== ENCOUNTER → 2024-12-06 15:41 | Outpatient (BNV) | payer MEDICARE, SELFPAY | PROVIDERS: Emergency Provider Emergency Medicine; PCP Internal Medicine; Visit Provider Radiology Diagnostic Radiology | DX: I63.9 Cerebral infarction, unspecified (principal) | CPT/HCPCS: 70450 ==

== ENCOUNTER → 2024-12-06 15:41 | Outpatient (BNV) | payer MEDICARE, SELFPAY | PROVIDERS: Admitting Provider Internal Medicine; Emergency Provider Emergency Medicine; PCP Internal Medicine; Visit Provider Internal Medicine | DX: I63.9 Cerebral infarction, unspecified (principal) | CPT/HCPCS: 93010 ==

== ENCOUNTER 2024-12-06 19:06 | Outpatient (BNV) | payer MEDICARE, SELFPAY | END 2024-12-07 07:00 | PROVIDERS: Admitting Provider Internal Medicine; Emergency Provider Emergency Medicine; PCP Internal Medicine; Visit Provider Internal Medicine | DX: I35.8 Other nonrheumatic aortic valve disorders (principal) | CPT/HCPCS: 93306 ==

== ENCOUNTER → 2024-12-06 19:06 | Outpatient (BNV) | payer MEDICARE, SELFPAY | PROVIDERS: Admitting Provider Internal Medicine; Emergency Provider Emergency Medicine; PCP Internal Medicine; Visit Provider Psychiatry & Neurology Neurology | DX: F03.90 Unspecified dementia, unspecified severity, without behavioral disturbance, psychotic disturbance, mood disturbance, and anxiety (principal) | CPT/HCPCS: 99223 ==

== ENCOUNTER → 2024-12-06 19:06 | Outpatient (BNV) | payer MEDICARE, SELFPAY | PROVIDERS: Admitting Provider Internal Medicine; Emergency Provider Emergency Medicine; PCP Internal Medicine; Visit Provider Nurse Practitioner Family | DX: T79.6XXA Traumatic ischemia of muscle, initial encounter (principal) | CPT/HCPCS: 99223; 99232; 99239 ==

== ENCOUNTER → 2024-12-06 19:06 | Outpatient (BNV) | payer MEDICARE, SELFPAY | PROVIDERS: Admitting Provider Internal Medicine; Emergency Provider Emergency Medicine; PCP Internal Medicine; Visit Provider Nurse Practitioner Family | DX: N17.9 Acute kidney failure, unspecified (principal) | CPT/HCPCS: 99222 ==

== ENCOUNTER 2024-12-10 16:09 | Emergency (ER) | payer MEDICARE, SELFPAY ==
--- NOTE | ~2024-12-10 | CT_ITS ---
CLINICAL HISTORY: fall with headstrike CT cervical spine without contrast Comparison: None provided Findings: Reversal of the cervical lordosis. Osteopenia. Multilevel spondylosis with osteophytosis, uncovertebral hypertrophy, facet arthropathy and degenerative disc disease. Anterolisthesis at C3-C4, C4-C5 and C6-C7. Mild spinal canal narrowing at C5-C6 with severe bilateral foraminal stenoses, left worse than right. No acute fractures or dislocations. Soft tissues of the neck are normal. No consolidation or effusion at the lung apices. IMPRESSION: No acute findings. Additional findings as described. This document has been electronically signed by: Danilo Lema MD on 12/10/2024 19:50:53
--- NOTE | ~2024-12-10 | CT_ITS ---
CLINICAL HISTORY: fall with headstrike CT head without contrast Comparison: Head CT 12/06/2024 Findings: Scattered subcortical and periventricular hypoattenuation, likely in keeping with chronic small vessel ischemic disease. Parenchymal volume loss with compensatory prominence of the ventricles and CSF spaces. No acute territorial infarction, intracranial hemorrhage, midline shift or hydrocephalus. Empty sella is demonstrated, nonspecific. The visualized paranasal sinuses and mastoid air cells are normal. The orbits are within normal limits. There is no acute fracture. IMPRESSION: 1. No acute intracranial abnormality. 2. Additional findings as described. This document has been electronically signed by: Danilo Lema MD on 12/10/2024 19:50:36
[2024-12-10 16:26] VITALS: BP 136/78; BP 136/82; PULSE 85; PULSE 87; RESP 18; TEMP 37; O2SAT 96; O2SAT 97; BMI 21.8
--- OUTSIDE RECORDS SUMMARY | 2024-12-10 16:52 | XMS_ITS | Clinical Summary ---
Author Organization [facility] Address [address] [place] [address] Phone Care Team Providers Care Clinical Services Professional Name Role Phone Mark Orozco MD Primary Care Provider [phone] Mark Orozco MD Unavailable Tesfaye Helton MD Unavailable Mason Ramirez MD Unavailable [phone] Harvey Guevara MD Unavailable Mark Orozco MD Unavailable [phone] Allergies Active Allergy Reactions Criticality Noted Date [...] Encounters Date Type Department Care Team Description 12/07/2024 Orders Only [facility] Internal Medicine [address] [place] [address] ProviderHong MD 12/06/2024 Telephone [facility] Internal Medicine [address] [place] [address] Bear Zhou PA-C Late Cancellation (12/06/24 at 1:00pm) 12/02/2024 Telephone [facility] Internal Medicine [address] [place] [address] Mark Orozco MD Possible gout 11/22/2024 Refill [facility] Endocrinology [place] [address] [place] [phone] Homer Gallego MA Medication Refill 11/14/2024 Refill [facility] Internal Medicine [address] [place] [address] Mark Orozco MD Medication Refill; Medication Problem 10/21/2024 Orders Only [facility] Internal Medicine [address] [place] [address] Provider, MD Hong from Last 3 Months [...] Description 01/30/2025 1:30 PM EST Office Visit [facility] Internal Medicine [address] [facility] [address] Mark Orozco MD [address] [place] [address] [email or web address] 08/02/2025 1:00 PM EDT Office Visit [facility] Internal Medicine [address] [facility] [place] [address] Mark Orozco MD [address], [place] [phone] [email or web address] Health Maintenance Due Date Last Done Comments [...] Additional history exists POTASSIUM LEVEL 07/28/2025 07/28/2024, 05/2023, 08/18/2023, Additional history exists COLONOSCOPY 03/15/2029 03/15/2019, [...] Name Priority Date/Time Associated Diagnosis Comments OUTSIDE XR CHEST REPORT ONLY Routine 12/06/2024 8:38 AM EDT OUTSIDE XR PELVIS REPORT ONLY Routine 12/06/2024 8:[address] HEAD/NECK REPORT ONLY Routine 12/06/2024 8:[address] IMAGING REPORT ONLY Routine 12/06/2024 8:08 AM EDT OUTSIDE IMAGING Routine 10/11/2024 2:23 PM EDT LIPID PANEL Routine 07/28/2024 3:42 PM EDT Benign essential hypertension COMPREHENSIVE METABOLIC PANEL Routine 07/28/2024 3:42 PM EDT Benign essential hypertension HEPATITIS C ANTIBODY, QUALITATIVE Routine 07/01/2023 9:29 AM EDT Weight loss HM COLONOSCOPY FOR RESULT ENTRY ONLY Routine 03/15/2019 from Last 3 Months or Most Recently Relevant to Health Maintenance Results * Outside XR??Chest Report Only (12/06/2024 8:38 AM EDT) us Historical Provider MD OQUENDO XR CHEST Final Res ult * Outside XR Pelvis Report Only (12/06/2024 8:23 AM EDT) us Historical Provider MD OQUENDO XR PELVIS Final Res ult * Outside CT Head/Neck Report Only (12/06/2024 8:23 AM EDT) Historical Provider MD OQUENDO CT HEAD/NECK Final Re sult * Outside CT Imaging Report Only (12/06/2024 8:08 AM EDT) Historical Provider IMG CT Final Res ult * Outside Imaging Report Only (10/11/2024 2:23 PM EDT) Historical Provider MD OQUENDO XR CHEST Final Res ult * (ABNORMAL) Comprehensive metabolic panel (07/28/2024 3:42 PM EDT) SODIUM 140 133 - 146 mmol/L [facility] POTASSIUM 3.9 3.3 - 5.1 mmol/L [facility] CHLORIDE 102 96 - 108 mmol/L [facility] CO2 28 21 - 35 mmol/L [facility] BUN 25(H) 6 - 19 mg/dL [facility] CREATININE 1.40 0.5 - 1.5 mg/dL [facility] GLUCOSE 110(H) 70 - 99 mg/dL [facility] ALBUMIN 4.5 3.9 - 4.8 g/dL [facility] TOTAL PROTEIN 7.6 6.5 - 8.0 g/dL [facility] CALCIUM 10.0 8.4 - 10.3 mg/dL [facility] ALKALINE PHOSPHATASE 97 39 - 117 U/L [facility] TOTAL BILIRUBIN <0.2 0.0 - 1.2 mg/dL [facility] AST 24 0 - 37 U/L [facility] ALT 13 0 - 40 U/L [facility] GLOBULIN 3.1 1 - 4.8 g/dL [facility] EGFR 53(L) >59 mL/min/1.7 3m2 [facility] Comment:Estimated glomerular filtration rate calculated using the CKD-EPI refit equation. ANION GAP 14 10 - 20 mmol/L [facility] Blood 07/28/2024 3:42 PM EDT 07/28/2024 3:47 PM EDT us Mark Orozco MD LAB BLOOD ORDERABLES Final Re sult Performing Organization Address [facility] Co de Phone Number [address] [address] * (ABNORMAL) Lipid panel (07/28/2024 3:42 PM EDT) HDL 61 mg/dL [facility] Comment: Interpretation <40 mg/dL: Low HDL cholesterol (major risk factor for CHD) Greater than or equal to 60 mg/dL: High HDL cholesterol ( negative risk factor for CHD) HDL - cholesterol is affected by a number of factors, e.g. smoking, excerise, hormones, sex and age. CHOLESTEROL 150 0 - 240 mg/dL [facility] TRIGLYCERIDES 108 30 - 160 mg/dL [facility] LDL 67 50 - 129 mg/dL [facility] Comment: LDL levels in terms of risk for coronary heart disease: <100 mg/dL: Optimal 100-129 mg/dL: Near or above optimal 130-159 mg/dL: Borderline high 160-189 mg/dL: High >190 mg/dL: Very High CARDIAC RISK RATIO 2.5(L) 3.4 - 5.0 [facility] Blood 07/28/2024 3:42 PM EDT 07/28/2024 3:47 PM EDT us Mark Orozco MD LAB BLOOD ORDERABLES Final Re sult Performing Organization Address [facility] Co de Phone Number [address] [address] * Hepatitis C antibody, qualitative (07/01/2023 9:29 AM EDT) HCV NON-REACTIV E NON-REACTI VE [facility] Blood 07/01/2023 9:29 AM EDT 07/01/2023 9:33 AM EDT Mark Orozco MD LAB BLOOD ORDERABLES Final Re sult Performing Organization Address [facility]/State/ZIP Co de Phone Number [facility] [address] [place] [address] * COLONOSCOPY FOR RESULT ENTRY ONLY (03/15/2019) Colonoscopy 10 year repeat us Historical Provider MD HEALTH MAINTENANCE Final Result from Last 3 Months or Most Recently Relevant to Health Maintenance Insurance Phase Eight MEDEX SUPPLEMENT MEDICARE PART A & B Phase [employer] MEDEX SUPPLEMENT MEDICARE PART A & B Phase Eight MEDEX SUPPLEMENT MEDICARE PART A & B Phase Eight MEDEX SUPPLEMENT MEDICARE PART A & B BLUE CROSS MEDEX SUPPLEMENT MEDICARE PART A & B [employer] CROSS MEDEX SUPPLEMENT MEDICARE PART A & B [employer] CROSS MEDEX SUPPLEMENT MEDICARE PART A & B Phase Eight MEDEX SUPPLEMENT MEDICARE PART A & B Phase Eight MEDEX SUPPLEMENT MEDICARE PART A & B Advance Directives For more information, please contact: [phone] (9AM - 5PM [facility], Thursday-Thursday) Documents on File Type Date Recorded 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 [facility] Healthcare Proxy 05/17/2018 [facility] Proxy - signed Care Teams Clinical Services Professional Relationship Specialty Start Date End Date Mark Orozco MD [address] [place] [address] PCP - General 12/25/16 Mark Orozco MD [address] [place] [address] Historical LMR Provider 12/27/16 Tesfaye Helton MD [address] [place] [address] [address] [place] [address] Gastroenterology 05/05/19 Mason Ramirez MD [address] [place] [phone] [email or web address] Urology 05/19/19 Harvey Guevara MD [address] [place] [address] Rheumatology 05/19/19 Mark Orozco MD [address] [place] [address] [email or web address] Insurance Assigned Provider 06/13/23 Additional Source Comments The information contained in this document represents components of the legal health record. It is not the complete legal health record.[facility]
--- OUTSIDE RECORDS SUMMARY | 2024-12-10 16:52 | XMS_ITS | Patient Health Record ---
Author Organization [facility] Address [address] [place] [address] Care Team Providers Care Independent Insurance Adjuster Name Role Phone Mark Orozco MD Primary Care Provider Tesfaye Da Silva [phone] Allergies Allergen (clinical drug ingredient) Drug/Non Drug [...] W/U Status Risk Notes Problem Epigastric pain (12712012) Epigastric pain (R10.13) Active confirmed Problem 545659103 Encounter for screening for malignant neoplasm of colon (Z12.11) Active confirmed Problem 027869224 Abdominal bloati ng (R14.0) Active confirmed Problem 617279032 Long-term use of aspirin therapy (Z79.82) Active confirmed Problem Gastroesophageal reflux disease (603114996) GERD (gastroesophageal reflux disease) (K21.9) Active confirmed Problem [id number] Pre-procedural examination (Z01.818) Active confirmed Problem Gastroesophageal reflux disease (761375514) Gastroesophageal reflux disease, unspecified whether esophagitis present [...] Date MEDICARE OF [place] [address] [place] [address] [id number] ROBBIN KILPATRICK Self - patient is the insured MED[employer] ATTN CLAIMS [address] [place] [address] [id number] ROBBIN KILPATRICK Self - patient is the insured Medical (General) History Medical History History ICD Code Kidney stones--ESWL Hypertension Hyperlipidemia GERD--EGD 01/2022 with minim al hiatal hernia, no esophagitis, gastric biopsies negative for H.pylori Denies GA,DM,CVA,Lung disease,renal dise ase Negative screening colonoscopy in 2008 a nd in 03/2019 U/S of Gallbladder in 2 with ? of a GB polyp or tiny stone--asymptomatic Surgical History Surgery Date(Month/Year) Bilateral knee replacements with Dr. Dallas slater
--- OUTSIDE RECORDS SUMMARY | 2024-12-10 16:52 | XMS_ITS | Encounter Summary ---
Author Organization [facility] Address [address] [place] [address] Phone Care Team Providers Care Percussion Welding Machine Operator Name Role Phone Mark Orozco MD Primary Care Provider Mark Orozco MD Unavailable Tesfaye Helton MD Unavailable Mason Ramirez MD Unavailable [phone] Harvey Guevara MD Unavailable Mark Orozco MD Unavailable Reason for Visit * Reason Onset Date Comments Possible gout 12/02/2024 Encounter Details Date Type Department Care Team (Late st Contact Info) Description 12/02/2024 Telephone [facility] Internal Medicine [address] [place], [place] [phone] Mark Orozco MD [address] [place], [place] [phone] [email or web address] Possible gout Social History Tobacco Use Types [...] EC and I should call him at [phone]. Called and that line is busy. * [...] Description 01/30/2025 1:30 PM EST Office Visit [facility] Internal Medicine [address] [place] [address] Mark Orozco MD [address] [place] [address] 08/02/2025 1:00 PM EDT Office Visit [facility] Internal Medicine [address] [place], [place] [phone] Mark Orozco MD [address] [place], [place] [phone] documented as of this encounter Visit Diagnoses Not on filedocumented in this encounter Additional Health Concerns Assessment Noted Time PHQ-2 Depression Total Score: 1 06/26/19 24 8:48 AM EDT documented as of this encounter Care Teams Percussion Welding Machine Operator Relationship Specialty Start Date End Date Mark Orozco MD [address] [place] [address] PCP - General 12/25/16 Mark Orozco MD [address] [place] [address] Historical LMR Provider 12/27/16 Tesfaye Helton MD [address] [place] [address] Drive [address] [place] [phone] Gastroenterology 05/05/19 Mason Ramirez MD [address] [place] [phone] [email or web address] Urology 05/19/19 [place] [address] [place] [address] Rheumatology 05/19/19 Mark Orozco MD [address] [place] [address] [email or web address] Insurance Assigned Provider 06/13/23 documented as of this encounter Additional Source Comments The information contained in this document represents components of the legal health record. It is not the complete legal health record.[facility]
--- OUTSIDE RECORDS SUMMARY | 2024-12-10 16:52 | XMS_ITS | Encounter Summary ---
Author Organization [facility] Address [address] [place] [address] Phone Care Team Providers Care Realtime Reporter Name Role Phone Mark Orozco MD Primary Care Provider [phone] Mark Orozco MD Unavailable Tesfaye Helton MD Unavailable Mason Ramirez MD Unavailable [phone] Harvey Guevara MD Unavailable Mark Orozco MD Unavailable Reason for Referral * MRI/CAT Scan - Closed Specialty Diagnoses / Procedures Referred By Laura moseley Referred To Contact Radiology Procedures Outside CT Head/Neck Report Only [facility] Internal Medicine [address] [place] [address] Phone: tel: fax: Referral ID Status Reason Start Date Expiration Date Visits Re quested Visits Authorized [id number] Closed 12/07/2024 1 1 * MRI/CAT Scan - Closed Specialty Diagnoses / Procedures Referred By Laura moseley Referred To Contact Radiology Procedures Outside CT Imaging Report Only [facility] Internal Medicine [address] [place] [address] Phone: tel: fax: Referral ID Status Reason Start Date Expiration Date Visits Re quested Visits Authorized [id number] Closed 12/07/2024 1 1 Encounter Details Date Type Department Care Team (Late st Contact Info) Description 12/07/2024 Orders Only [facility] Internal Medicine [address] [place] [address] ProviderHong [place] [facility] [place] [address] Social History Tobacco Use Types Packs/Day Years [...] PM EDT documented as of this encounter Plan of Treatment Upcoming Encounters Date Type Department Care Team (Late st Contact Info) Description 01/30/2025 1:30 PM EST Office Visit [facility] Internal Medicine [address] [place] [address] Mark Orozco MD [address] [facility] [place] [address] [email or web address] 08/02/2025 1:00 PM EDT Office Visit [facility] Internal Medicine [address] [place] [address] Mark Orozco MD [address] [place] [address] [email or web address] documented as of this encounter Procedures Procedure Name Priority Date/Time Associated Diagnosis Comments OUTSIDE XR CHEST REPORT ONLY Routine 12/06/2024 8:38 AM EDT OUTSIDE XR PELVIS REPORT ONLY Routine 12/06/2024 8:[address] HEAD/NECK REPORT ONLY Routine 12/06/2024 8:[address] IMAGING REPORT ONLY Routine 12/06/2024 8:08 AM EDT documented in this encounter Results * Outside XR??Chest Report Only (12/06/2024 8:38 AM EDT) Historical Provider MD OQUENDO XR CHEST Final Res ult * Outside XR Pelvis Report Only (12/06/2024 8:23 AM EDT) Historical Provider MD OQUENDO XR PELVIS Final Res ult * Outside CT Head/Neck Report Only (12/06/2024 8:23 AM EDT) Historical Provider MD OQUENDO CT HEAD/NECK Final Re sult * Outside CT Imaging Report Only (12/06/2024 8:08 AM EDT) Historical Provider MD IMG CT Final Res ult documented in this encounter Visit Diagnoses Not on filedocumented in this encounter Additional Health Concerns Assessment Noted Time PHQ-2 Depression Total Score: 1 06/26/19 24 8:48 AM EDT documented as of this encounter Care Teams Realtime Reporter Relationship Specialty Start Date End Date Mark Orozco MD [address] [place] [address] PCP - General 12/25/16 Mark Orozco MD [address] [place] [address] Historical LMR Provider 12/27/16 Tesfaye Helton MD [address] [place] [address] Gastroenterology 05/05/19 Mason Ramirez MD [address] [place] [phone] [email or web address] 05/19/19 Harvey Guevara MD [address] [place] [address] Rheumatology 05/19/19 Mark Orozco MD [address] [place] [address] Insurance Assigned Provider 06/13/23 documented as of this encounter Additional Source Comments The information contained in this document represents components of the legal health record. It is not the complete legal health record.[facility]
--- OUTSIDE RECORDS SUMMARY | 2024-12-10 16:52 | XMS_ITS | Patient Health Record ---
Author Organization [facility] Zeferino Reeves Address [address] [address] Care Team Providers Care Medical Imaging Director Name Role Phone Mark Orozco MD Primary Care Provider Chriss Sy Unavailable [phone] Allergies No Known Allergies Reason For Referral [...] Status W/U Status Risk Notes Problem Onychomycosis (272610666) Onychomycosis (B35.1) Active confirmed Problem Verruca pedis (18020900) Verruca pedis (B07.0) Active confirmed Vital Signs Blood pressure diastolic 65 mm Hg 11/29/2024 Height 2lu02sw in 11/29/2024 Blood pressure systolic 126 mm Hg 11/29/2024 Weight 150 lbs 11/29/2024 BMI 21.52 kg/m2 11/29/2024 Procedures Procedure Date Ordered Date Performed Result Body Sit e 88164-JSSDNRF NAIL, 6 OR MORE 03/01/2024 N/A 99693-Ujun Destruction, 1-14 03/01/2024 N/A 51548-FHFJYRS NAIL, 6 OR MORE 06/03/2024 N/A 07388-Milr Destruction, 1-14 06/03/2024 N/A 18161-HZGGFAU NAIL, 6 OR MORE 08/30/2024 N/A 53021-Fcta Destruction, 1-14 08/30/2024 N/A 69976-NHVQHQN NAIL, 6 OR MORE 11/29/2024 N/A 32885-Yfat Destruction, 1-14 11/29/2024 N/A Encounters Encounter [facility] Date [facility] [address] 03/01/2024 Chriss Joan Pain of toe of right foot M79.674 ; Onychomycosis B35.1 ; Pain of toe of left foot M79.675 ; Verruca pedis B07.0 ; Right foot pain M79.671 and Left foot pain M79.672 [facility] [address] 06/03/2024 Chriss Joan Pain of toe of right foot M79.674 ; Onychomycosis B35.1 ; Pain of toe of left foot M79.675 ; Verruca pedis B07.0 ; Right foot pain M79.671 and Left foot pain M79.672 [facility] [address] 08/30/2024 Chriss Joan Pain of toe of right foot M79.674 ; Onychomycosis B35.1 ; Pain of toe of left foot M79.675 ; Verruca pedis B07.0 ; Right foot pain M79.671 and Left foot pain M79.672 [facility] [place] [address] [place] [address] 11/29/2024 Chriss Joan Pain of toe of [...] X ray : Foot, right 3V 03/12/2021 96317-JVNGMCP NAIL, 6 OR MORE 09/08/2022 88327-PVNVIRH NAIL, 6 OR MORE 11/18/2022 32504-ZPRZOID NAIL, 6 OR MORE 01/27/2023 55749-EHIMPNS NAIL, 6 OR MORE 04/07/2023 17798-YKZBHQA NAIL, 6 OR MORE 06/16/2023 38332-UWZZDGV NAIL, 6 OR MORE 09/08/2023 94698-PJOXIWL NAIL, 6 OR MORE 12/01/2023 58613-FMYOWVW NAIL, 6 OR MORE 03/01/2024 28628-MBLBVOH NAIL, 6 OR MORE 06/03/2024 07940-ZAQCXFP NAIL, 6 OR MORE 08/30/2024 48426-IDKZMRJ NAIL, 6 OR MORE 11/29/2024 25079-Lfms Destruction, 1-14 11/29/2024 50922-Rznz Destruction, 1-14 08/30/2024 18899-Mwhi Destruction, 1-14 06/03/2024 00415-Jhoa Destruction, 1-14 03/01/2024 66574-Kiqx Destruction, 1-14 12/01/2023 17274-Irts Destruction, 1-14 09/08/2023 32920-Vwmd Destruction, 1-14 06/16/2023 59841-Jvrd Destruction, 1-14 04/07/2023 79335-Htnj Destruction, 1-14 01/27/2023 20036-Seio Destruction, 1-14 11/18/2022 45186-Kqej Destruction, 03-2209/08/2022 Next Appt Details Provider Name:Chriss Franco , 03/28/2025 02:00:00 PM, [address] [place], [address], Insurance Providers Payer Name Payer Address Payer Phone Subscriber Number Group Number Insured Name Patient Relationship to Insured Coverage Start Date Coverage End Date Medicare National Gov[employer] [address] [place] [address] [id number] Oscar Cobian Self - patient is the insured [employer] [address] [place] [address] [id number] Oscar Cobian Self - patient is the insured Medical (General) History Medical History History ICD Code Arthritis Back,Hip,and Knee pain High blood pressure Measles Mumps Chicken pox Surgical History Surgery Date(Month/Year) knee replacement x2 [phone]
--- OUTSIDE RECORDS SUMMARY | 2024-12-10 16:52 | XMS_ITS | Encounter Summary ---
Author Organization [facility] Address [email or web address] [place] [address] Phone Care Team Providers Care Broadcast Field Supervisor Name Role Phone Mark Orozco MD Primary Care Provider Mark Orozco MD Unavailable Tesfaye Helton MD Unavailable Mason Ramirez MD Unavailable [phone] Harvey Guevara MD Unavailable [phone] Mark Orozco MD Unavailable Reason for Visit * Reason Onset Date Comments Late Cancellation 12/06/2024 12/06/24 at 1:0 0pm Encounter Details Date Type Department Care Team (Late st Contact Info) Description 12/06/2024 Telephone [facility] Internal Medicine [address] [place], [place] [phone] Bear Zhou PA-C [address] [place], [place] [phone] [email or web address] Late Cancellation (12/06/24 at 1:00pm) Social History [...] can cancel appointments anytime through your [facility] [place]. We appreciate your understanding. Required Scripting for [...] can cancel appointments anytime through your [facility] [place]. documented in this encounter Plan of Treatment Upcoming Encounters Date Type Department Care Team (Late st Contact Info) Description 01/30/2025 1:30 PM EST Office Visit [facility] Internal Medicine [address] [place] [address] Mark Orozco MD [address] [place] [phone] [email or web address] 08/02/2025 1:00 PM EDT Office Visit [facility] Internal Medicine [address] [place] [address] Mark Orozco MD [address] [place] [address] documented as of this encounter Visit Diagnoses Not on filedocumented in this encounter Additional Health Concerns Assessment Noted Time PHQ-2 Depression Total Score: 1 06/26/19 24 8:48 AM EDT documented as of this encounter Care Teams Broadcast Field Supervisor Relationship Specialty Start Date End Date Mark Orozco MD [address] [place] [address] PCP - General 12/25/16 Mark Orozco MD [address] [place] [address] Historical LMR Provider 12/27/16 Tesfaye Helton MD [address] [place] [address] Drive [address] [place] [address] Gastroenterology 05/05/19 Mason Ramirez MD [address] [place] [phone] [email or web address] 05/19/19 [place] [address] [place] [address] Rheumatology 05/19/19 Mark Orozco MD [address] [place] [address] [email or web address] Insurance Assigned Provider 06/13/23 documented as of this encounter Additional Source Comments The information contained in this document represents components of the legal health record. It is not the complete legal health record.[facility]
--- NOTE | 2024-12-10 17:08 | PC.NURSE ---
patient awake, alert to self, unable to tell us what happened as his history of dementia his story continues to change anytime he is asked, presently denying pain/discomfort, awaiting provider eval
[2024-12-10 17:18] VITALS: BP 136/82; PULSE 78; RESP 14; TEMP 37; O2SAT 94
--- NOTE | 2024-12-10 17:39 | ED.FALL ---
HPI - Fall General Chief Complaint: Fall Stated Complaint: Unwit fall, Lac to back of head, hx:dementia Time Seen by Provider: 12/10/24 17:29 Source: EMS, RN notes reviewed and old records reviewed Mode of arrival: EMS Limitations: altered mental status (Dementia) History of Present Illness ED Provider: KRYSTYNA Curran HPI Narrative: 74-year-old male with medical history of dementia, HLD, HTN, essential tremor, presents to the ED by EMS after unwitnessed fall at [facility] where he was trying to self transfer from chair to the bed and fell hitting the back of his head on a night stand. Fall was unwitnessed however, staff told EMS they heard the fall and immediately went to evaluate the patient and help him up. Patient has severe dementia and is unable to tell me what happened stating he was walking in between cars and slipped on wet pavement. Patient denies chest pain, SOB, abdominal pain, nausea, vomiting, headache, visual changes. Related Data Home Medications ?Medication ?Instructions ?Recorded ?Confirmed atorvastatin 20 mg tablet 1 tab PO DAILY 01/24/22 12/06/24 hydrochlorothiazide 12.5 mg tablet 1 tab PO DAILY 01/24/22 12/06/24 lisinopril 30 mg tablet 1 tab PO DAILY 01/24/22 12/06/24 omeprazole 20 mg capsule,delayed 1 cap PO BID 01/24/22 12/06/24 release vitamin B12 0.5 mg-folic acid 1 mg 1 tab PO DAILY 09/16/22 12/06/24 tablet donepezil 10 mg tablet 10 mg PO BEDTIME 12/06/24 12/06/24 memantine 5 mg tablet 5 mg PO DAILY 12/06/24 12/06/24 Previous Rx's ?Medication ?Instructions ?Recorded hydroxyzine HCl 10 mg tablet 10 mg PO TID 10 days #30 tabs 12/09/24 Allergies Allergy/AdvReac Type Severity Reaction Status Date / Time acetaminophen (From Percocet) AdvReac Stomach Verified 12/10/24 16:28 Upset oxycodone (From Percocet) AdvReac Stomach Verified 12/10/24 16:28 Upset Review of Systems Review of Systems: CONST: Negative for fever, body aches and chills. HENT: Negative for neck pain/stiffness, headache, congestion, sore throat, swelling. EYES: Negative for discharge/pain or vision changes. RESP: Negative for cough/hemoptysis and shortness of breath. CV: Negative chest pain, difficulty breathing, palpitations. ABD: Negative pain, nausea, vomiting. : Negative increase frequency, dysuria, blood in urine or stool. MUSC: Negative for muscle aches, edema. SKIN: Negative rash, lesions/sores. NEURO: Negative headache, dizziness, weakness. Yes all other systems are reviewed and are negative [facility] Past Medical History Attestation statement: The following information was validated with the patient. Source: old records reviewed, obtained from family (Son at bedside) and nursing notes reviewed Medical History Weakness Weight loss Essential tremor Dementia Hyperlipemia HTN (hypertension) Surgical History History of left inguinal hernia repair (09/01/19) History of umbilical hernia repair (09/01/19) History of arthroplasty of right knee (06/29/16) 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) History of arthroplasty of left knee History of total right knee replacement (TKR) Family History Family History Maternal Grandmother Rectal cancer Social History Social History Household Members: None Housing: House Do you presently have visiting nurse or other home services: Yes (meals on wheels) Alcohol intake: never Comment: 1-1 sitter Patient Tobacco Use Status: Never used Tobacco Advance Directives: Yes Advance Directives on File: Yes Advance Directives Date on File: 12/10/24 Do you have a plan to hurt others: No Plan service: No Physical Exam Vital Signs: Vital Signs: Last Vital Signs Temp 98.6 F 12/10/24 17:18 Pulse 78 12/10/24 17:18 Resp 14 12/10/24 17:18 BP 136/82 12/10/24 17:18 Pulse Ox 94 12/10/24 17:18 O2 Del Method Room Air 12/10/24 17:18 BMI result Body Mass Index 21.8 GENERAL APPEARANCE: History of severe dementia, patient is alert and oriented however thinks he is at [facility], patient keeps changing the story of what happened today when asked non toxic appearing, no acute distress. HEENT: ?NC, AT. MMM. EOMI, clear conjunctiva, oropharynx clear. NECK: ?Supple without lymphadenopathy.? No stiffness or restricted ROM. HEART:? Normal rate and regular rhythm, normal S1/S2, no m/r/g LUNGS:? CTAB, moving air well. No crackles or wheezes are heard. ABDOMEN: ?Soft, nontender, nondistended BACK: No CVAT, no obvious deformity. EXTREMITIES: ?Without cyanosis, clubbing or edema. NEUROLOGICAL: ?Grossly nonfocal. Alert and oriented, moving all 4 extremities. Skin: ?Warm and dry without any rash. Medical Decision Making Medical Decision Making MDM Narrative: 74-year-old male with medical history of dementia, HLD, HTN, essential tremor, presents to the ED by EMS after unwitnessed fall at [facility] where he was trying to self transfer from chair to the bed and fell hitting the back of his head on a night stand. VS on initial observation-BP 136/78, pulse rate of 87, respiratory rate of 18, afebrile with oral temp of 98.6?, O2 saturation 96% on room air. On physical exam lungs clear to auscultation bilaterally, cardiac exam reveals normal rate and rhythm without murmurs/rubs/gallops. Abdomen is soft, nontender, no rigidity, no distention, no guarding. Lower extremities without pitting edema. Patient is currently in C-collar, with head laceration under the collar that I can not visualize or inspect without removing collar. Plan: Labs, UA, EKG, CT head/brain, CT C-spine EKG reveals sinus rhythm with PACs, no significant ST-elevation/depression or T-wave abnormality, no lengthened QT Labs without leukocytosis/leukopenia, normocytic anemia with a hemoglobin of 10.6, hematocrit of 31.9, CT head and CT C-spine negative for any signs of acute fracture. Patient's lab work did not show any signs of significant abnormality. I did repair the patient's small cut on the back of his posterior scalp. Appears to be hemostatic uncontrolled does not appear to be a full-thickness laceration. Dermabond was used for this repair. Patient will be discharged back to nursing facility. Differential Diagnosis Differential Diagnoses: The differential diagnosis associated with the presentation includes ACS ICH C-spine fracture Head laceration Electrolyte abnormality UTI Admission/Observation Consideration of admission/observation: Escalation of care including admission/observation considered Lab Data MDM Lab Attestation statement: I reviewed the patient's lab results. 12/10/24 18:09 12/10/24 18:09 Labs: Lab Results 12/10/24 Range/Units 18:09 WBC 7.9 (4.8-10.8) X10*3/uL RBC 3.50 L (4.60-5.80) X10*6/uL Hgb 10.6 L (14.0-18.0) g/dl Hct 31.9 L (42.0-52.0) % MCV 91.1 (80.0-98.0) fL MCH 30.3 (27.0-33.0) pg MCHC 33.2 (31.0-36.0) g/dl RDW 13.0 (11.0-16.0) % Plt Count 357 (160-400) X10*3/uL MPV 10.3 (9.4-12.4) fL Immature Gran % (Auto) 0.5 H (0.0-0.4) % Neut % (Auto) 73.3 H (45-73) % Lymph % (Auto) 14.5 L (20-40) % Appling % (Auto) 9.7 (2-11) % Eos % (Auto) 1.4 (0-4) % Baso % (Auto) 0.6 (0-2) % Lymph # (Auto) 1.1 L (1.2-4.9) X10*3/uL Appling # (Auto) 0.8 (0.1-1.2) X10*3/uL Eos # (Auto) 0.1 (0.0-0.4) X10*3/uL Baso # (Auto) 0.1 (0.0-0.2) X10*3/uL Abs Immat Gran (auto) 0.04 H (0.00-0.03) X10*3/uL Absolute Neuts (auto) 5.8 (2.0-8.3) x10*3/uL Absolute Nucleated RBC 0.000 (0.0-0.012) X10*3/uL Nucleated RBC % (auto) 0.0 (0.0-0.2) /100WBC Sodium 140 (135-145) mmol/L Potassium 3.8 (3.3-5.1) mmol/L Chloride 105 (96-108) mmol/L Carbon Dioxide 27 (22-29) mmol/L Anion Gap 12 (12-20) BUN 24 H (9-16) mg/dL Creatinine 1.31 (0.5-1.4) mg/dL Estim Creat Clear Calc 45.4 Estimated GFR 54 Random Glucose 98 (60-115) mg/dL Calcium 8.8 (8.4-10.2) mg/dL Magnesium 1.6 (1.6-2.6) mg/dL Total Bilirubin 0.5 (0.0-1.0) mg/dL AST 54 H (5-37) U/L ALT 40 (0-40) U/L Alkaline Phosphatase 69 (39-117) U/L Troponin I High Sens 9.2 D (<3.5-35.0) ng/L Total Protein 6.2 L (6.5-8.0) g/dL Albumin 3.5 (3.5-5.0) g/dL Independent Interpretation I performed an independent interpretation of an: CT Scan Radiology Impression Discussion of test interpretation with radiology: I have reviewed the radiologist's reading. Discharge Plan Discharge Clinical Impression: Closed head injury Qualifiers: Encounter type: initial encounter Qualified Code(s): S09.90XA - Unspecified injury of head, initial encounter Patient Disposition: Xfer [facility] Instructions: Head Injury (ED) Prescriptions: No Action atorvastatin 20 mg tablet 1 tab PO DAILY lisinopril 30 mg tablet 1 tab PO DAILY omeprazole 20 mg capsule,delayed release(DR/EC) 1 cap PO BID hydrochlorothiazide 12.5 mg tablet 1 tab PO DAILY donepezil 10 mg tablet 10 mg PO BEDTIME memantine 5 mg tablet 5 mg PO DAILY hydroxyzine HCl 10 mg Tablet 10 mg PO TID 10 Days Qty: 30 3RF vitamin I40-gkwvy acid 0.5-1 mg tablet 1 tab PO DAILY Print Language: Latvian
--- NOTE | 2024-12-10 17:52 | ECG_ITS ---
Test Reason : WEAKNESS Blood Pressure : */* mmHG Vent. Rate : 72 BPM Atrial Rate : 72 BPM P-R Int : 156 ms QRS Dur : 88 ms QT Int : 392 ms P-R-T Axes : 49 -13 33 degrees QTcB Int : 429 ms Sinus rhythm with Premature atrial complexes Inferior infarct , age undetermined Abnormal ECG When compared with ECG of 06-Dec-2024 16:31, Premature atrial complexes are now Present Inferior infarct is now Present Referred By: Natalee Curran Electronically Signed By: CLEVE LUONG
[2024-12-10 18:21] LABS: MANUAL DIFF FLAG NO
[2024-12-10 18:37] LABS: Alanine Aminotransferase 40 U/L (0-40); Albumin Level 3.5 g/dL (3.5-5.0); Alkaline Phosphatase 69 U/L (39-117); Anion Gap 12 (12-20); Aspartate Amino Transferase 54 U/L (5-37); Blood Urea Nitrogen 24 mg/dL (9-16); Calcium 8.8 mg/dL (8.4-10.2); Carbon Dioxide 27 mmol/L (22-29); Chloride 105 mmol/L (96-108); Creatinine Clr Calc Pharmacy 45.4; Estimated Glomerular Filt Rate 54; Magnesium 1.6 mg/dL (1.6-2.6); Potassium 3.8 mmol/L (3.3-5.1); Sodium 140 mmol/L (135-145); Total Protein 6.2 g/dL (6.5-8.0)
[2024-12-10 18:46] LABS: Hematocrit 31.9 % (42.0-52.0); Hemoglobin 10.6 g/dl (14.0-18.0); Imm Gran Abs Auto 0.04 X10*3/uL (0.00-0.03); Imm Gran Pct Auto 0.5 % (0.0-0.4); Lymphocytes Absolute Auto 1.1 X10*3/uL (1.2-4.9); Mean Corpuscular HGB Conc 33.2 g/dl (31.0-36.0); Mean Corpuscular Hemoglobin 30.3 pg (27.0-33.0); Mean Corpuscular Volume 91.1 fL (80.0-98.0); NRBC Abs Auto 0.000 X10*3/uL (0.0-0.012); NRBC Pct Auto 0.0 /100WBC (0.0-0.2); Platelet Count 357 X10*3/uL (160-400); Red Blood Count 3.50 X10*6/uL (4.60-5.80); White Blood Count 7.9 X10*3/uL (4.8-10.8)
[2024-12-10 19:00] LABS: Troponin-I High Sensitivity 9.2 ng/L (<3.5-35.0)
--- NOTE | 2024-12-10 22:14 | PC.NURSE ---
This RN notified [facility] that patient will be returning. ems transport being booked.
[2024-12-10 23:21] VITALS: BP 136/82; PULSE 78; RESP 14; TEMP 37; O2SAT 94
== END 2024-12-10 23:42 | disposition skilled nursing facility (03) ==
PROVIDERS: Emergency Provider Student in an Organized Health Care Education/Training Program; PCP Emergency Medicine
DX: S01.91XA Laceration without foreign body of unspecified part of head, initial encounter (principal); R51.9 Headache, unspecified; R94.31 Abnormal electrocardiogram [ECG] [EKG]; F03.90 Unspecified dementia, unspecified severity, without behavioral disturbance, psychotic disturbance, mood disturbance, and anxiety; M54.2 Cervicalgia; W07.XXXA Fall from chair, initial encounter; Z91.81 History of falling; Y93.9 Activity, unspecified; Y92.9 Unspecified place or not applicable; Y99.8 Other external cause status
CPT/HCPCS: 36415; 70450; 72125; 80053; 83735; 84484; 85025; 93005; 99284

== ENCOUNTER → 2024-12-10 17:52 | Outpatient (BNV) | payer MEDICARE, SELFPAY | PROVIDERS: Emergency Provider Student in an Organized Health Care Education/Training Program; PCP Emergency Medicine; Visit Provider Radiology Diagnostic Radiology | DX: S09.90XA Unspecified injury of head, initial encounter (principal); W19.XXXA Unspecified fall, initial encounter | CPT/HCPCS: 70450; 72125 ==

== ENCOUNTER → 2024-12-10 17:52 | Outpatient (BNV) | payer MEDICARE, SELFPAY | PROVIDERS: Emergency Provider Student in an Organized Health Care Education/Training Program; PCP Emergency Medicine; Visit Provider Internal Medicine | DX: I49.1 Atrial premature depolarization (principal) | CPT/HCPCS: 93010 ==

== ENCOUNTER 2024-12-15 12:32 | Outpatient (AMB) | payer MEDICARE, SELFPAY ==
--- NOTE | 2024-12-15 13:03 | MHC.OFFVIS ---
Vital Signs 12/15/24 13:04 Height 5 ft 7 in BP 108/70 Blood Pressure Location Lt brachial Position Sitting Pulse 68 Pulse Source Pulse Oximeter Pulse Oximetry (%) 98 Oxygen Delivery Method Room Air Intake Visit Reasons: ENP - Tremors Intake Note: Tremors Electric Mule Operator Required: No Accompanied by: sister and Niece Allergies acetaminophen (From Percocet) Adverse Reaction (Verified 12/15/24 13:04) Stomach Upset oxycodone (From Percocet) Adverse Reaction (Verified 12/15/24 13:04) Stomach Upset HPI Comments Details: 74y/o left handed male diagnosed with Dementia ( Alzheimers vs mixed ) 2 years ago by . He also has tremors in his left LE and UE. The lower extremity tremors was noticed by family for a few years . The left hand tremors are new.The tremors are mostly at rest and does not bother him His voice is softer He has drooling No hallucinations He is slower.He had a fall last week at home - was in the floor the whole night before his sister found him and is in short term rehab - had another fall there and according to his sister his cognition is worse since then.He was living alone .He was very confused with parnoia after his fall. the family noticed a cognitive declines during COVID. 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 [facility] Medical History (Updated 12/15/24 @ 13:54 by Alice Ribeiro MD) Parkinsonism Weakness Weight loss Essential tremor Dementia Hyperlipemia HTN (hypertension) Surgical History History of left inguinal hernia repair (09/01/19) History of umbilical hernia repair (09/01/19) History of arthroplasty of right knee (06/29/16) 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) History of arthroplasty of left knee History of total right knee replacement (TKR) Family History Maternal Grandmother Rectal cancer Social History Household Members: None Housing: House Do you presently have visiting nurse or other home services: Yes (meals on wheels) Alcohol intake: never Comment: 1-1 sitter Patient Tobacco Use Status: Never used Tobacco Advance Directives Date on File: 12/10/24 service: No Physical Exam Vital Signs: Last Vital Signs Pulse 68 12/15/24 13:04 BP 108/70 12/15/24 13:04 Pulse Ox 98 12/15/24 13:04 Oxygen Delivery Method Room Air 12/15/24 13:04 Const General: cooperative, healthy appearing, comfortable and no acute distress Nutritional Appearance: body habitus not average Orientation/consciousness: oriented to place and patient oriented x3 Eyes Pupils: Equal, round and reactive pupils present Neuro Other: Marlon Ue cogwheel rigidty L>R Decreased facial expression and blink Speehc- softer FFM and foot taps decreased Marlon General: oriented to place, patient oriented x3, moves all extremities, no focal motor deficits and Unable to assess gait Cranial nerves: Yes Facial sensation intact/muscles of mastication intact, Yes Equal, round and reactive pupils present, Yes Bilaterally intact EOM present, Yes Nystagmus not present, Yes Normal facial strength present, Yes Midline tongue present, Yes Symmetric palate elevation present and Yes Ability to bilaterally elevate shoulders present Cognition (Neuro): abnormal cognition Gait exam (Neuro): Unable to assess gait Motor exam (neuro): 5/5 motor strength present throughout and Normal motor muscle tone present throughout Deep tendon reflexes (DTR's): Right triceps reflex intensity grade: 2+, Left triceps reflex intensity grade: 2+, Rt Biceps (C5, C6): 2+, Left biceps reflex intensity grade: 2+, Right brachioradialis reflex intensity grade: 2+, Left brachioradialis reflex intensity grade: 2+, Right patellar reflex intensity grade: 3+ and Left patellar reflex intensity grade: 3+ Coordination: [id number] test normal Orientation What is the (year) (season) (date) (day) (month)?: year, season, date, day and month Where are we (state) (county) (town or city) (hospital) (floor)?: state, county, town or city, hospital/clinic and floor Registration Name of 3 unrelated objects clearly and slowly, then ask patient to repeat all 3 of them. (1st repeat determines score. Make sure they can repeat all three): object 1, object 2 and object 3 Attention & Calculation (CHOOSE ONE) Spell WORLD backwards (DLROW): 3 letters Recall Ask patient to repeat the 3 items from question #3.: object 1 Language Show patient a wristwatch & ask what it is. Repeat for pencil.: watch and pencil Ask the patient to repeat the phrase 'No ifs, ands, or buts' after you.: correct Ask the patient to 'take a piece of paper with their right hand' 'fold paper in half' 'place paper on floor': take paper in right hand, fold paper in half and place paper on floor Print the sentence 'CLOSE YOUR EYES' on a piece. If patient actually closes eyes then score.: followed written direction Give patient a blank piece of paper & ask to write a sentence. Score if it contains a noun & verb.: sentence contains subject and verb Score Score: 25 Assessment & Plan Assessment & Plan (1) Dementia: Comment: ? DLBD ? vascular ? ALzheimers Code(s): F03.90 - Unspecified dementia, unspecified severity, without behavioral disturbance, psychotic disturbance, mood disturbance, and anxiety Category: Medical Qualifiers: Dementia type: unspecified type Dementia severity: unspecified severity Dementia behavioral or psychological symptom: without behavioral, psychotic, or mood disturbance or anxiety Qualified Code(s): F03.90 - Unspecified dementia, unspecified severity, without behavioral disturbance, psychotic disturbance, mood disturbance, and anxiety (2) Parkinsonism: Comment: ?DLBD Code(s): G20.C - Parkinsonism, unspecified Category: Medical Plan MRI brain at [facility] 2 years ago - report to review I will trial patient on Carbidopa/levodopa 25/100 1/2 tab tid - Monitor for increased confusion , hallucinations. Continue memantine 5mg qd and aricpet 10 mg qd Coding Level of Care Code New Pt Level 4 (04196) Complex EM visit Add On G2211 Diagnoses Dementia without behavioral disturbance, psychotic disturbance, mood disturbance, or anxiety, unspecified dementia severity, unspecified dementia type F03.90 Dementia type: unspecified type Dementia severity: unspecified severity Dementia behavioral or psychological symptom: without behavioral, psychotic, or mood disturbance or anxiety Parkinsonism G20.C
[2024-12-15 13:04] VITALS: BP 108/70; PULSE 68; O2SAT 98
== END 2024-12-15 14:09 | disposition home or self-care (01) ==
LOC: HO.HSMS 12:32
PROVIDERS: PCP Internal Medicine; Visit Provider Psychiatry & Neurology Neurology
DX: F03.90 Unspecified dementia, unspecified severity, without behavioral disturbance, psychotic disturbance, mood disturbance, and anxiety (principal); G20.C Parkinsonism, unspecified
CPT/HCPCS: 99204; G2211

== ENCOUNTER → 2024-12-15 12:32 | Outpatient (BNVA) | payer MEDICARE, SELFPAY | PROVIDERS: PCP Internal Medicine; Visit Provider Psychiatry & Neurology Neurology | DX: G20.C Parkinsonism, unspecified (principal); F03.90 Unspecified dementia, unspecified severity, without behavioral disturbance, psychotic disturbance, mood disturbance, and anxiety | CPT/HCPCS: 99202 ==

== ENCOUNTER 2025-01-24 09:57 | Outpatient (REF) | payer MEDICARE, SELFPAY ==
[2025-01-24 13:31] LABS: MANUAL DIFF FLAG NO
[2025-01-24 13:40] LABS: Hematocrit 37.5 % (42.0-52.0); Hemoglobin 11.7 g/dl (14.0-18.0); Imm Gran Abs Auto 0.02 X10*3/uL (0.00-0.03); Imm Gran Pct Auto 0.3 % (0.0-0.4); Lymphocytes Absolute Auto 1.3 X10*3/uL (1.2-4.9); Mean Corpuscular HGB Conc 31.2 g/dl (31.0-36.0); Mean Corpuscular Hemoglobin 29.9 pg (27.0-33.0); Mean Corpuscular Volume 95.9 fL (80.0-98.0); NRBC Abs Auto 0.000 X10*3/uL (0.0-0.012); NRBC Pct Auto 0.0 /100WBC (0.0-0.2); Platelet Count 334 X10*3/uL (160-400); Red Blood Count 3.91 X10*6/uL (4.60-5.80); White Blood Count 7.2 X10*3/uL (4.8-10.8)
[2025-01-24 14:22] LABS: Anion Gap 13 (12-20); Blood Urea Nitrogen 29 mg/dL (9-16); Calcium 9.7 mg/dL (8.4-10.2); Carbon Dioxide 25 mmol/L (22-29); Chloride 109 mmol/L (96-108); Estimated Glomerular Filt Rate 52; Iron 85 mcg/dL (45-160); Percent Iron Saturation 31 % (15-50); Potassium 4.8 mmol/L (3.3-5.1); Sodium 142 mmol/L (135-145); Total Iron Binding Capacity 272 mcg/dL (228-428); Unsaturated Iron Binding 187 ug/dL
[2025-01-24 14:27] LABS: Ferritin 275 ng/mL (20-250)
== END 2025-01-24 09:58 | disposition home or self-care (01) ==
LOC: HO.HMGCLDS 09:57
DX: D64.9 Anemia, unspecified (principal); N17.9 Acute kidney failure, unspecified
CPT/HCPCS: 36415; 80048; 82728; 83540; 85025